=== PATIENT | female | born 1955 | race Caucasian/White ===

== ENCOUNTER → 2017-03-18 | Outpatient (CLI) | payer MEDICARE, OTHER ==
[2017-03-18 09:03] LABS: CH 30.7; CHCM 32.1; HDW 2.18; HGB 14.8 gm/dL (11.4-16.0); MCH 31.6 pg (25.0-35.0); MCHC 32.9 g/dL (31.0-37.0); MCV 96.1 fL (80.0-100.0); RBC 4.68 m/uL (3.80-5.40); RDW 12.8 % (11.5-15.5); WBC 7.4 k/uL (3.8-10.6)
[2017-03-18 09:14] LABS: ALT 31 U/L (9-52); AST 18 U/L (14-36); Alkaline Phosphatase 54 U/L (38-126); Anion Gap 15 mmol/L; Blood Urea Nitrogen 11 mg/dL (7-17); Carbon Dioxide 22 mmol/L (22-30); Chloride 102 mmol/L (98-107); Glucose 213 mg/dL (74-99); Magnesium 1.7 mg/dL (1.6-2.3); Non-African American GFR(MDRD) >60 (>60 ml/min/1.73 sqM); Potassium 4.5 mmol/L (3.5-5.1); Sodium 139 mmol/L (137-145); Total Bilirubin 0.3 mg/dL (0.2-1.3); Total Protein 7.9 g/dL (6.3-8.2)
[2017-03-18 12:16] LABS: Hemoglobin A1C 7.7 % (4.2-6.1)
== END | disposition home or self-care (01) ==
LOC: LABWHC1 08:22
PROVIDERS: ATTEND Family Medicine
DX: E11.9 Type 2 diabetes mellitus without complications (principal)
CPT/HCPCS: 36415; 80053; 83036; 83735; 84443; 85027

== ENCOUNTER 2018-10-19 12:24 | Inpatient (IN) | payer MEDICARE, OTHER ==
[2018-10-19] MEDS ORDERED: ACETAMINOPHEN TAB 500 MG TAB PO STA (12:43)
[2018-10-19] MEDS ORDERED: IBUPROFEN 600 MG TAB PO STA (12:44)
--- NOTE | 2018-10-19 12:52 | ED ---
Fall HPI <Garland Betts - Last Filed: 10/19/18 15:44> - General Source: patient, EMS Mode of arrival: EMS <JoepaulNick - Last Filed: 10/19/18 16:13> - General Chief Complaint: Fall Stated Complaint: fall/ rt arm injury Time Seen by Provider: 10/19/18 12:34 - History of Present Illness Initial Comments: Patient is a 62-year-old blind female presented to emergency department after a fall. Patient states that that today she was ambulating with an aide when she lost her footing and fell to the right side of her body. Patient denies loss of consciousness. Patient states that her pain is located along the midshaft of the right humerus and the shoulder. Patient states the pain does not radiate anywhere. Patient reports pain is constant and stabbing. Patient was brought to the emergency department with a sling which she states it helps with the pain. Patient did not take any medication to improve the pain. Patient reports she tingling on the palmar aspect of the of all digits. Patient denies any numbness. Patient reports the pain is worsened with arm abduction although she is able to fully extend the elbow. (Nick Mitchell) - Related Data Home Medications Medication Instructions Recorded Confirmed Aspirin [Adult Low Dose Aspirin EC] 81 mg PO DAILY 10/19/18 10/19/18 DULoxetine HCL [Cymbalta] 90 mg PO DAILY 10/19/18 10/19/18 Divalproex [Depakote] 500 mg PO BID 10/19/18 10/19/18 Levothyroxine Sodium [Synthroid] 25 mcg PO DAILY 10/19/18 10/19/18 Lisinopril-Hctz 10-12.5 mg 1 tab PO DAILY 10/19/18 10/19/18 [Zestoretic 10-12.5] Meloxicam [Mobic] 15 mg PO DAILY 10/19/18 10/19/18 Multivitamins, Thera [Multivitamin 1 tab PO DAILY 10/19/18 10/19/18 (formulary)] OLANZapine [ZyPREXA] 10 mg PO HS 10/19/18 10/19/18 Oxybutynin Xl [Ditropan Xl] 5 mg PO DAILY 10/19/18 10/19/18 Simvastatin [Zocor] 20 mg PO DAILY 10/19/18 10/19/18 glipiZIDE [Glucotrol XL] 10 mg PO BID 10/19/18 10/19/18 rOPINIRole HCL 0.5 mg PO HS 10/19/18 10/19/18 sitaGLIPtin PHOS/metFORMIN HCL 1 tab PO DAILY 10/19/18 10/19/18 [Janumet Xr 100-1,000 mg Tablet] Allergies Allergy/AdvReac Type Severity Reaction Status Date / Time No Known Allergies Allergy Verified 10/19/18 12:32 Review of Systems ROS Other: All systems not noted in ROS Statement are negative. <Garland eBtts - Last Filed: 10/19/18 15:44> ROS Other: All systems not noted in ROS Statement are negative. <Nick Mitchell - Last Filed: 10/19/18 16:13> ROS Statement: Those systems with pertinent positive or pertinent negative responses have been documented in the HPI. Past Medical History Past Medical History: Diabetes Mellitus, Hyperlipidemia, Hypertension, Thyroid Disorder Additional Past Medical History / Comment(s): blind, tremors History of Any Multi-Drug Resistant Organisms: None Reported Past Surgical History: No Surgical Hx Reported Past Psychological History: Anxiety Smoking Status: Never smoker Past Alcohol Use History: None Reported Past Drug Use History: None Reported <Nick Mitchell - Last Filed: 10/19/18 16:13> General Exam Limitations: no limitations (Blind) General appearance: alert, in no apparent distress Head exam: Present: atraumatic, normocephalic, normal inspection ENT exam: Present: normal exam Neck exam: Present: normal inspection, full ROM. Absent: tenderness Respiratory exam: Present: normal lung sounds bilaterally Cardiovascular Exam: Present: regular rate, normal rhythm, normal heart sounds Right Shoulder Exam: Present: tenderness (With abduction extension and flexion.). Absent: full ROM, swelling, abrasion, laceration, ecchymosis Upper Arm exam: Present: tenderness (Midshaft humerus.). Absent: swelling, abrasion, laceration, ecchymosis Elbow exam: Present: normal inspection, full ROM Forearm Wrist exam: Present: normal inspection, full ROM (Tingling or palmar aspect of all digits) Vascular: Present: normal capillary refill, radial pulse (+2), ulnar pulse (+2) Neurological exam: Present: alert, oriented X3 Psychiatric exam: Present: normal affect, normal mood Skin exam: Present: warm, normal color <Nick Mitchell - Last Filed: 10/19/18 16:13> Course Vital Signs 10/19/18 10/19/18 10/19/18 12:27 14:30 14:44 Temperature 97.5 F L Pulse Rate 93 98 89 Respiratory 18 18 18 Rate Blood Pressure 137/81 137/67 121/90 O2 Sat by Pulse 96 98 95 Oximetry 10/19/18 10/19/18 10/19/18 14:49 14:54 14:59 Temperature Pulse Rate 131 H 118 H 103 H Respiratory 35 H 37 H 32 H Rate Blood Pressure 114/74 114/99 O2 Sat by Pulse 98 97 97 Oximetry 10/19/18 10/19/18 10/19/18 15:04 15:09 15:14 Temperature Pulse Rate 83 99 98 Respiratory 24 26 H 28 H Rate Blood Pressure 102/53 107/54 115/51 O2 Sat by Pulse 98 98 98 Oximetry 10/19/18 10/19/18 10/19/18 15:19 15:24 15:30 Temperature Pulse Rate 94 96 90 Respiratory 20 20 18 Rate Blood Pressure 111/63 110/59 107/56 O2 Sat by Pulse 97 97 97 Oximetry Procedures - Orthopedic Joint Reduction Joint #1 Consent Obtained: verbal consent Side: right Joint Reduction Location: shoulder Shoulder Technique Used (if applicable): traction/counter-traction - Procedural Sedation Procedural Sedation Start Time: 14:45 Procedural Sedation Stop Time: 15:50 Indications: fracture/dislocation reduction Preparation: hall monitor applied, pulse oximeter, capnometry used, supplemental O2 applied, suction/airway equipment at bedside IV Etomidate Dose (mgs): 40 Patient Tolerated Procedure: well <Garland Betts - Last Filed: 10/19/18 15:44> - Orthopedic Joint Reduction Joint #1 Additional Comments: Unable to reduce the shoulder. (Garland Betts) Medical Decision Making - Lab Data Result diagrams: 10/19/18 14:18 10/19/18 14:18 <Graland Betts - Last Filed: 10/19/18 15:44> - Lab Data Result diagrams: 10/19/18 14:18 10/19/18 14:18 <Nick Mitchell - Last Filed: 10/19/18 16:13> - Medical Decision Making EKG showed normal sinus rhythm at 90 bpm TN interval 168 QRSs 84 QT interval 366 QTC is 452. Patient's T-wave inversions in leads V2 through V6. Compared to an old EKG from 2007 and some of these had previously existed. We used etomidate for conscious sedation with the patient we initially gave the patient 15 mg and she was not completely relax a gave her 5 more we followed that up with 2 more doses of 10. Shoulder was not able to be reduced in the emergency department. (Garland Betts) Patient is 62-year-old male presenting to emergency Department after fall. X- ray right shoulder and humerus were ordered. Patient was given ibuprofen for control. X-ray showing a dislocation of the right shoulder and a fracture of the greater trochanter of the humerus. Possible biceps tear and injury to the rotator cuff. Patient was given ibuprofen for pain with minimal improvement. Patient was given [place] afterward. Patient will be admitted directly to the OR with Dr. Moise. (Nick Mitchell) - Lab Data Lab Results 10/19/18 10/19/18 10/19/18 Range/Units 14:18 14:18 14:18 WBC 17.8 H (3.8-10.6) k/uL RBC 4.55 (3.80-5.40) m/uL Hgb 13.4 (11.4-16.0) gm/dL Hct 41.5 (34.0-46.0) % MCV 91.2 (80.0-100.0) fL MCH 29.5 (25.0-35.0) pg MCHC 32.3 (31.0-37.0) g/dL RDW 13.4 (11.5-15.5) % Plt Count 340 (150-450) k/uL Neutrophils % 90 % Lymphocytes % 6 % Monocytes % 3 % Eosinophils % 0 % Basophils % 0 % Neutrophils # 16.0 H (1.3-7.7) k/uL Lymphocytes # 1.1 (1.0-4.8) k/uL Monocytes # 0.5 (0-1.0) k/uL Eosinophils # 0.1 (0-0.7) k/uL Basophils # 0.0 (0-0.2) k/uL Sodium 135 L (137-145) mmol/L Potassium 4.9 (3.5-5.1) mmol/L Chloride 99 (98-107) mmol/L Carbon Dioxide 23 (22-30) mmol/L Anion Gap 13 mmol/L BUN 13 (7-17) mg/dL Creatinine 0.56 (0.52-1.04) mg/dL Est GFR (CKD-EPI)AfAm >90 (>60 ml/min/1.73 sqM) Est GFR (CKD-EPI)NonAf >90 (>60 ml/min/1.73 sqM) Glucose 254 H (74-99) mg/dL Calcium 9.8 (8.4-10.2) mg/dL Total Bilirubin 0.3 (0.2-1.3) mg/dL AST 22 (14-36) U/L ALT 13 (9-52) U/L Alkaline Phosphatase 58 (38-126) U/L Troponin I <0.012 (0.000-0.034) ng/mL Total Protein 7.4 (6.3-8.2) g/dL Albumin 4.2 (3.5-5.0) g/dL Disposition <Garland Betts - Last Filed: 10/19/18 15:44> Is patient prescribed a controlled substance at d/c from ED?: No Time of Disposition: 16:13 <Nick Mitchell - Last Filed: 10/19/18 16:13> Clinical Impression: Fall, Dislocation, shoulder, anterior, Fracture, humerus closed Disposition: ADMITTED IP TO THIS HOSP Condition: Stable Additional Instructions: Admitting physician is Dr. Moise. Referrals: Georgi Parker MD [Primary Care Provider] - 1-2 days
--- NOTE | 2018-10-19 13:18 | XR ---
EXAMINATION TYPE: XR humerus RT, XR shoulder complete RT DATE OF EXAM: 10/19/2018 CLINICAL HISTORY: Right shoulder and upper chimney pain after fall TECHNIQUE: Two views of the right humerus are obtained. 3 views of the right shoulder were obtained COMPARISON: None. FINDINGS: There is an anterior shoulder dislocation and diabetic minimally comminuted fracture of the greater tuberosity with diastases measuring 1.2 cm. Concern for biceps tendon and rotator cuff injur y given the location of the fracture. Mild acromio clavicular arthropathy is noted. Elbow joint is un remarkable. No additional fracture in the right humerus and right shoulder. Flowing anterior osteophy sridhar are seen of the thoracic spine. Inferior glenoid is obscured and bony Bankart lesion is possible but not well visualized. IMPRESSION: Anterior right humeral head dislocation with minimally comminuted diastatic right greater tuberosity fracture. The location of the fracture raises concern for biceps tendon and rotator cuff injury.
[2018-10-19] MEDS ORDERED: HYDROcodone/APAP 5-325MG 1 EACH TAB PO STA (13:48)
[2018-10-19] MEDS ORDERED: ETOMIDATE 2 MG/ML 10 ML VIAL IVP STA ×2 (14:05→14:50)
[2018-10-19 14:36] LABS: ALT 13 U/L (9-52); AST 22 U/L (14-36); Albumin 4.2 g/dL (3.5-5.0); Alkaline Phosphatase 58 U/L (38-126); Anion Gap 13 mmol/L; Blood Urea Nitrogen 13 mg/dL (7-17); Calcium 9.8 mg/dL (8.4-10.2); Carbon Dioxide 23 mmol/L (22-30); Chloride 99 mmol/L (98-107); Glucose 254 mg/dL (74-99); Potassium 4.9 mmol/L (3.5-5.1); Sodium 135 mmol/L (137-145); Total Bilirubin 0.3 mg/dL (0.2-1.3); Total Protein 7.4 g/dL (6.3-8.2)
[2018-10-19 14:39] LABS: Basophils % (A) 0 %; Eosinophils # (A) 0.1 k/uL (0-0.7); Eosinophils % (A) 0 %; HCT 41.5 % (34.0-46.0); HGB 13.4 gm/dL (11.4-16.0); Lymphocytes # (A) 1.1 k/uL (1.0-4.8); Lymphocytes % (A) 6 %; MCH 29.5 pg (25.0-35.0); MCHC 32.3 g/dL (31.0-37.0); MCV 91.2 fL (80.0-100.0); Mean Platelet Volume 6.9; Monocytes # (A) 0.5 k/uL (0-1.0); Monocytes % (A) 3 %; Neutrophils % (A) 90 %; Platelet Count 340 k/uL (150-450); RBC 4.55 m/uL (3.80-5.40); RDW 13.4 % (11.5-15.5); WBC 17.8 k/uL (3.8-10.6)
[2018-10-19] MEDS ORDERED: MORPHINE SULFATE 4 MG/ML SYRINGE IV PRN (16:06)
[2018-10-19] MEDS ORDERED: NALOXONE 0.4 MG/ML 1 ML VIAL IV PRN (16:06)
[2018-10-19 17:22] LABS: Glucose,Whole Blood 231 mg/dL (75-99)
[2018-10-19] MEDS ORDERED: SODIUM CHLORIDE 0.9% 1,000 ML IV ONE (17:45)
--- NOTE | 2018-10-19 18:18 | P.HPOR ---
History of Present Illness H&P Date: 10/19/18 Chief Complaint: Right shoulder dislocation Patient is a 60-year-old female who presented to [facility] today after sustaining a fall and injury to her right side. Patient was walking with her aid, she lost her balance and fell directly on the right side. She had immediate pain and had difficulty moving the right arm. Upon arrival to [facility], imaging test demonstrated a anterior dislocation right shoulder with a greater tuberosity fracture. I was contacted by the emergency room staff. An attempt was made at a closed reduction with sedation in the ER, this was not achievable. Patient was then directly admitted to the hospital, with plan for surgical intervention. Patient was admitted to orthopedic service for further treatment. Patient was evaluated in the preoperative area today. She is resting comfortably. She has no other orthopedic complaints at this time. She notes some discomfort in shoulder. She denies any significant numbness and tingling involving the right upper extremity. Patient is legally blind, she does have an aide that comes in 2 hours out of the day. She does live alone. She denies any previous orthopedic surgeon involving the right upper extremity. Review of Systems Constitutional: Reports as per HPI Past Medical History Past Medical History: Diabetes Mellitus, Hyperlipidemia, Hypertension, Thyroid Disorder Additional Past Medical History / Comment(s): blind, tremors History of Any Multi-Drug Resistant Organisms: None Reported Past Surgical History: No Surgical Hx Reported Past Anesthesia/Blood Transfusion Reactions: No Reported Reaction Past Psychological History: Anxiety Smoking Status: Never smoker Past Alcohol Use History: None Reported Past Drug Use History: None Reported - Past Family History Brother(s) Additional Family Medical History / Comment(s): 2 brothres , 1 in [place] Medications and Allergies Home Medications Medication Instructions Recorded Confirmed Type Aspirin [Adult Low Dose Aspirin EC] 81 mg PO DAILY 10/19/18 10/19/18 History DULoxetine HCL [Cymbalta] 90 mg PO DAILY 10/19/18 10/19/18 History Divalproex [Depakote] 500 mg PO BID 10/19/18 10/19/18 History Levothyroxine Sodium [Synthroid] 25 mcg PO DAILY 10/19/18 10/19/18 History Lisinopril-Hctz 10-12.5 mg 1 tab PO DAILY 10/19/18 10/19/18 History [Zestoretic 10-12.5] Meloxicam [Mobic] 15 mg PO DAILY 10/19/18 10/19/18 History Multivitamins, Thera [Multivitamin 1 tab PO DAILY 10/19/18 10/19/18 History (formulary)] OLANZapine [ZyPREXA] 10 mg PO HS 10/19/18 10/19/18 History Oxybutynin Xl [Ditropan Xl] 5 mg PO DAILY 10/19/18 10/19/18 History Simvastatin [Zocor] 20 mg PO DAILY 10/19/18 10/19/18 History glipiZIDE [Glucotrol XL] 10 mg PO BID 10/19/18 10/19/18 History rOPINIRole HCL 0.5 mg PO HS 10/19/18 10/19/18 History sitaGLIPtin PHOS/metFORMIN HCL 1 tab PO DAILY 10/19/18 10/19/18 History [Janumet Xr 100-1,000 mg Tablet] Allergies Allergy/AdvReac Type Severity Reaction Status Date / Time No Known Allergies Allergy Verified 10/19/18 12:32 Physical Examination Right upper extremity: No obvious open lesions or sores visualized, no significant areas of erythema or soft tissue swelling Sensation to light touch throughout the extremity is intact, skin is warm to touch, radial pulses 2+ Patient is nontender with palpation surrounding the wrist and hand, also elbow There is some tenderness to palpation over the anterior aspect of the shoulder Results - Labs Labs: Abnormal Lab Results - Last 24 Hours (Table) 10/19/18 10/19/18 10/19/18 Range/Units 14:18 14:18 17:10 WBC 17.8 H (3.8-10.6) k/uL Neutrophils # 16.0 H (1.3-7.7) k/uL Sodium 135 L (137-145) mmol/L Glucose 254 H (74-99) mg/dL POC Glucose (mg/dL) 231 H (75-99) mg/dL H & H 10/19/18 Range/Units 14:18 Hgb 13.4 (11.4-16.0) gm/dL Hct 41.5 (34.0-46.0) % Result Diagrams: 10/19/18 14:18 10/19/18 14:18 - Diagnostic results Shoulder x-ray: report reviewed, image reviewed Assessment and Plan Plan: Imaging: Multiple images of the humerus and shoulder were obtained on the right side. Images demonstrated an obvious anterior shoulder dislocation with a displaced g reater tuberosity fracture. Assessment: 1. Right shoulder anterior dislocation 2. Displaced greater tuberosity fracture right shoulder 3. Status post fall from standing 4. Other medical comorbidities Plan: Dr. Moise was available today to discuss treatment options with patient in the preop area. Patient was scheduled for an immediate reduction of the right shoulder. Consent has been obtained for a closed reduction of the right shoulder with possible open reduction right shoulder. Nothing by mouth at this time Pain control Medical consult Further recommendations to follow Time with Patient: Less than 30
[2018-10-19] MEDS ORDERED: SUCCINYLCHOLINE CHLORIDE 100 MG/5 ML SYR IV ONE (18:26)
[2018-10-19] MEDS ORDERED: PROPOFOL 10 MG/ML 20 ML VIAL IV ONE (18:26)
[2018-10-19] MEDS ORDERED: LIDOCAINE 1% INJ 10MG/ML (20 ML MDV) ONE (18:26)
[2018-10-19] MEDS ORDERED: PHENYLEPHRINE-0.9% NACL SYG 1 MG/10 ML SYRINGE ONE (18:26)
[2018-10-19] MEDS ORDERED: MIDAZOLAM 2 MG/2 ML VIAL ONE (18:26)
[2018-10-19] MEDS ORDERED: fentaNYL (PF) 50 MCG/ML 2 ML AMP ONE (18:26)
[2018-10-19] MEDS ORDERED: SODIUM CHLORIDE 0.9% 100 ML with ceFAZolin 2,000 MG IV ONE ×2 (18:59)
[2018-10-19] MEDS ORDERED: HYDROmorphone 1 MG/ML 1 ML SYRINGE IVP PRN (20:14)
[2018-10-19] MEDS ORDERED: HYDROmorphone 0.5 MG/0.5 ML SYRINGE IVP PRN (20:14)
--- NOTE | 2018-10-19 20:30 | P.OP ---
Date of Procedure: 10/19/18 Preoperative Diagnosis: Right shoulder dislocation/greater tuberosity fracture Postoperative Diagnosis: Subcoracoid anterior shoulder dislocation/displacedcomminuted greater tuberosity fracture Procedure(s) Performed: Open reduction of the right shoulder dislocation with open reduction and internal fixation of the greater tuberosity fracture Anesthesia: THIEN Surgeon: Bud Moise Hemodialysis Technician #1: Joaquin Dupont Estimated Blood Loss (ml): 50 Pathology: none sent Condition: stable Disposition: PACU Indications for Procedure: The patient's a 62-year-old blind female who presents after falling today injuring her right shoulder. Upon evaluation she was noted have a dislocated glenohumeral joint with fracture of the greater tuberosity. She underwent initial attempted reduction by the ER physicians without success. A discussion of the risks and benefits of operative intervention was made with patient. I informed her we would attempt repeat closed reduction but proceed with open reduction along with internal fixation if needed. Specific risks of the surgery to include infection, neurovascular injury, development of nonunion, possible recurrent instability, possible need for subsequent procedures was discussed. Informed consent was obtained. Operative Findings: As below Description of Procedure: The patient was brought to the operating room, and after induction of general anesthesia, I attempted closed reduction of her shoulder dislocation. This was unsuccessful. She is placed in a beachchair position. Bony prominences were appropriately padded. The right upper extremity was prepped and draped in normal fashion. A deltopectoral incision was then made just lateral to the coracoid process extending approximately 12 cm. Skin and subcutaneous tissues were divided sharply. Electrocautery was used for hemostasis. The subcutaneous tissues were divided bluntly. The deltopectoral interval was identified. The cephalic vein was gently retracted laterally with the were bluntly dissected. A self-retaining retractor was placed under the conjoined tendon medially and the deltoid laterally. The dislocation appeared to be subcoracoid. The biceps was blocking reduction and therefore was released from the superior labrum and allowed to retract distally. The shoulder was then reduced. The greater tuberosity was fragmented. This was reduced and fixed utilizing #2 fiber tape through distal drill holes. Final fluoroscopic view showed adequate reduction of the glenohumeral joint along with the fragmented greater tuberosity. The wound was irrigated normal saline. The deltopectoral was closed with interrupted 2-0 Vicryl sutures. The subcutaneous tissues reapproximated interrupted 2-0 Vicryl sutures. The skin was reapproximated with 3-0 subcuticular Prolene suture. Steri-Strips were applied. A sterile dressing was applied in addition to a sling. The patient was then awoken from general anesthesia and transferred to recovery room in good condition. Blood loss estimated 50 mL. No complications were incurred. Sponge and needle counts were correct at the end the case.
[2018-10-19] MEDS: HYDROmorphone 1 MG/ML 1 ML SYRINGE IVP ONE ×2 (20:55→21:00)
[2018-10-19] MEDS ORDERED: HEPARIN SODIUM,PORCINE 5,000 UNIT/ML 1 ML VIAL SQ SCH (21:00)
[2018-10-19] MEDS ORDERED: LACTATED RINGERS 1,000 ML IV ONE ×2 (21:03)
[2018-10-19] MEDS: SODIUM CHLORIDE 0.45% 1,000 ML IV SCH (21:19)
--- NOTE | 2018-10-19 21:45 | FL ---
EXAMINATION TYPE: FL guidance operating room, XR shoulder limited RT DATE OF EXAM: 10/19/2018 CLINICAL HISTORY: Right shoulder fracture. TECHNIQUE: Fluoroscopy. Limited intraoperative views right shoulder. COMPARISON: Right shoulder x-ray earlier today.. FINDINGS: Fluoroscopic guidance was provided during open reduction internal fixation procedure perfo rmed by Dr. Arriaga. A total of 53 seconds of fluoroscopic time was utilized during the procedure and single spot intraoperative image is acquired. Single spot intraoperative image acquired shows reduction of comminuted fracture with improved alignm ent. IMPRESSION: As Above.
[2018-10-19] MEDS: glipiZIDE 10 MG TAB PO SCH (21:51)
[2018-10-19] MEDS: DIVALPROEX 500 MG TABLET.DR PO SCH (21:51)
[2018-10-19] MEDS: INSULIN ASPART (NovoLOG) 100 UNIT/ML VIAL SQ SCH (21:51)
[2018-10-19] MEDS: OLANZapine 10 MG TAB PO SCH (21:51)
[2018-10-19] MEDS: LACTATED RINGERS 1,000 ML IV SCH (21:52)
[2018-10-19 22:03] LABS: Glucose,Whole Blood 178 mg/dL (75-99)
[2018-10-19 22:10] LABS: Glucose,Whole Blood 174 mg/dL (75-99)
[2018-10-20] MEDS: ceFAZolin IN SWFI 2 GM/20 ML SYRINGE IVP SCH ×2 (02:54→11:26)
[2018-10-20] MEDS: LEVOTHYROXINE 25 MCG TAB PO SCH (05:48)
[2018-10-20 06:05] LABS: Appearance,Urine Clear (Clear); Bacteria,Urine Rare /hpf; Bilirubin,Urine Negative (Negative); Blood,Urine Negative (Negative); Color,Urine Yellow; Glucose,Urine (UA) 2+ (Negative); Ketones,Urine 1+ (Negative); Leukocyte Esterase,Urine Trace (Negative); Mucus,Urine Occasional /hpf; Nitrite,Urine Negative (Negative); PH, Urine 5.5 (5.0-8.0); Protein,Urine Trace (Negative); RBC,Urine 1 /hpf (0-5); Specific Gravity,Urine 1.032 (1.001-1.035); Squamous Epithelial Cell,Urine 1 /hpf (0-4); Urobilinogen,Urine <2.0 mg/dL (<2.0); WBC,Urine 9 /hpf (0-5)
[2018-10-20] MEDS: HYDROcodone/APAP 5-325MG 1 EACH TAB PO PRN ×3 (06:16→21:04)
[2018-10-20 07:20] LABS: Glucose,Whole Blood 183 mg/dL (75-99)
[2018-10-20 07:29] LABS: Basophils % (A) 0 %; Eosinophils # (A) 0.1 k/uL (0-0.7); Eosinophils % (A) 1 %; HCT 38.4 % (34.0-46.0); HGB 12.1 gm/dL (11.4-16.0); Lymphocytes % (A) 21 %; MCH 28.9 pg (25.0-35.0); MCHC 31.6 g/dL (31.0-37.0); MCV 91.4 fL (80.0-100.0); Mean Platelet Volume 7.3; Monocytes # (A) 0.6 k/uL (0-1.0); Monocytes % (A) 7 %; Neutrophils # (A) 6.5 k/uL (1.3-7.7); Neutrophils % (A) 70 %; Platelet Count 214 k/uL (150-450); RDW 13.4 % (11.5-15.5); WBC 9.4 k/uL (3.8-10.6)
[2018-10-20] MEDS: glipiZIDE 10 MG TAB PO SCH ×2 (07:44→16:58)
[2018-10-20] MEDS: DULoxetine HCL 30 MG CAPSULE.DR PO SCH (07:44)
[2018-10-20] MEDS: DIVALPROEX 500 MG TABLET.DR PO SCH ×2 (07:44→21:05)
[2018-10-20] MEDS: metFORMIN 500 MG TAB PO SCH (07:44)
[2018-10-20] MEDS: OXYBUTYNIN XL 5 MG TAB.ER.24 PO SCH (07:45)
[2018-10-20] MEDS: INSULIN ASPART (NovoLOG) 100 UNIT/ML VIAL SQ SCH ×4 (07:45→21:05)
[2018-10-20] MEDS: LISINOPRIL-HCTZ 10-12.5 MG 1 EACH TAB PO SCH (07:45)
[2018-10-20] MEDS: MULTIVITAMINS, THERA 1 EACH TAB PO SCH (07:45)
[2018-10-20] MEDS: ATORVASTATIN 10 MG TAB PO SCH (07:45)
[2018-10-20] MEDS: LINAGLIPTIN 5 MG TABLET PO SCH (07:45)
[2018-10-20] MEDS: HEPARIN SODIUM,PORCINE 5,000 UNIT/ML 1 ML VIAL SQ SCH ×2 (07:46→21:05)
--- NOTE | 2018-10-20 08:11 | P.PN ---
Subjective Progress Note Date: 10/20/18 Principal diagnosis: Status post open reduction right shoulder/open reduction internal fixation greater tuberosity fracture patient is evaluated at bedside today, she is resting comfortably. She's utilizing the arm sling. Her pain is well-controlled. She denies any numbness or tingling involving the upper extremity. She denies any chest shortness of breath Objective - Vital Signs Vital signs: Vital Signs Temp 97.7 F 10/20/18 07:41 Pulse 78 10/20/18 07:41 Resp 16 10/20/18 07:41 BP 118/72 10/20/18 07:41 Pulse Ox 97 10/20/18 07:41 Intake & Output 10/19/18 10/20/18 10/20/18 18:59 06:59 18:59 Intake Total 550 1050 Output Total 900 Balance 550 150 Weight 85.729 kg Intake: IV 550 200 Intake, IV Titration 750 Amount Lactated Ringers 1,000 ml 750 @ 75 mls/hr IV .[id number] NAM Rx#:[id number] Oral 100 Output: Urine 850 Straight 850 Estimated Blood Loss 50 - Exam Right upper extremity: Postoperative bandages in good position and condition. Ecchymosis and soft tissue swelling present over the shoulder. Wrist extension and flexion are intact, she is able to wiggle all the fingers no difficulty. Her sensory exam to light touch throughout the extremities intact. Her radial pulses 2+. - Labs CBC & Chem 7: 10/20/18 06:50 10/19/18 14:18 Labs: Abnormal Lab Results - Last 24 Hours (Table) 10/19/18 10/19/18 10/19/18 Range/Units 14:18 14:18 17:10 WBC 17.8 H (3.8-10.6) k/uL Neutrophils # 16.0 H (1.3-7.7) k/uL Sodium 135 L (137-145) mmol/L Glucose 254 H (74-99) mg/dL POC Glucose (mg/dL) 231 H (75-99) mg/dL Urine Protein (Negative) Urine Glucose (UA) (Negative) Urine Ketones (Negative) Ur Leukocyte Esterase (Negative) Urine WBC (0-5) /hpf Urine Bacteria (None) /hpf Urine Mucus (None) /hpf 10/19/18 10/19/18 10/20/18 Range/Units 21:25 21:45 05:45 WBC (3.8-10.6) k/uL Neutrophils # (1.3-7.7) k/uL Sodium (137-145) mmol/L Glucose (74-99) mg/dL POC Glucose (mg/dL) 178 H 174 H (75-99) mg/dL Urine Protein Trace H (Negative) Urine Glucose (UA) 2+ H (Negative) Urine Ketones 1+ H (Negative) Ur Leukocyte Esterase Trace H (Negative) Urine WBC 9 H (0-5) /hpf Urine Bacteria Rare H (None) /hpf Urine Mucus Occasional H (None) /hpf 10/20/18 Range/Units 07:09 WBC (3.8-10.6) k/uL Neutrophils # (1.3-7.7) k/uL Sodium (137-145) mmol/L Glucose (74-99) mg/dL POC Glucose (mg/dL) 183 H (75-99) mg/dL Urine Protein (Negative) Urine Glucose (UA) (Negative) Urine Ketones (Negative) Ur Leukocyte Esterase (Negative) Urine WBC (0-5) /hpf Urine Bacteria (None) /hpf Urine Mucus (None) /hpf Assessment and Plan Plan: Assessment: 1. Postop day #1 status post open reduction right shoulder/open reduction internal fixation right shoulder greater tuberosity fracture Plan: Pain control, continue oral medication Continue use of arm sling GI and DVT prophylaxis, continue current medication Medical recommendations With patient's immobilization the right upper extremity, taking the consideration she is legally blind and that she has an aid visit for 2 hours a day, this patient will need subacute rehab for assistance with activities of daily living. Time with Patient: Less than 30
[2018-10-20] MEDS: LACTATED RINGERS 1,000 ML IV SCH (11:42)
[2018-10-20 11:59] LABS: Glucose,Whole Blood 228 mg/dL (75-99)
[2018-10-20] MEDS: SODIUM CHLORIDE 0.45% 1,000 ML IV SCH (16:16)
[2018-10-20 16:45] LABS: Glucose,Whole Blood 231 mg/dL (75-99)
[2018-10-20 20:56] LABS: Glucose,Whole Blood 244 mg/dL (75-99)
[2018-10-20] MEDS: OLANZapine 10 MG TAB PO SCH (21:05)
--- NOTE | 2018-10-20 22:22 | PN ---
PROGRESS NOTE DATE OF SERVICE: October 20, 2018. PRESENTING COMPLAINT: Right shoulder surgery. INTERVAL HISTORY: This is a patient with a fall with a fracture of the right humerus greater tuberosity fracture and dislocation, which was underwent surgical repair. Right arm in a sling. Some pain is present. Sitting up. No chest pain or short of breath. REVIEW OF SYSTEMS: Done for constitutional, cardiovascular, GI, pulmonary, musculoskeletal and relevant findings as above. CURRENT MEDICATIONS: Reviewed. PHYSICAL EXAMINATION: VITAL SIGNS: Temperature 98.1, pulse 95, respirations 14, blood pressure 116/72, pulse ox 96% on room air. GENERAL APPEARANCE: Sitting up on a chair awake. EYES: Pupils are equal. Conjunctivae normal. NECK: JVD unable to assess. Mass not palpable. RESPIRATORY: Effort normal. LUNGS: Fair air entry. CARDIOVASCULAR: 1st and 2nd sounds normal. No edema. ABDOMEN: Soft, nontender. Liver and spleen not palpable. PSYCHIATRY: AO x3. Mood and affect normal. Right arm in a sling and dressing over the right shoulder. INVESTIGATIONS: White count 9.4, hemoglobin 12.1, platelets 214. Accu-Cheks are noted. ASSESSMENT: 1. Right shoulder greater tuberosity fracture and dislocation followed by surgical intervention right arm in a sling. 2. Obesity; BMI 30.5. 3. Diabetes mellitus type 2. 4. Essential hypertension. 5. Hyperlipidemia. 6. Hypothyroidism. 7. Chronic blindness. The patient can only visualize light. 8. Chronic essential tremors. PLAN: 1. Continue current medication and treatment plan. 2. Care was discussed with the patient. 3. Accu-Cheks are noted. MMODL / IJN: [id number] /
--- NOTE | 2018-10-20 23:04 | CONS ---
CONSULTATION DATE OF CONSULTATION: October 20, 2018. REASON FOR CONSULTATION: Medical management requested by Dr. Moise. CONSULTATION: This is a pleasant 62 -year-old patient of visiting physician Dr. Parker normally gets around with a walker, slipped and fell injuring the right shoulder with a fracture to the greater tuberosity. The patient underwent surgical repair of the same. Chronic stable medical conditions include diabetes, hypertension, hyperlipidemia, hypothyroid. The patient is blind in both the eyes and has got chronic tremors. No cardiac history. REVIEW OF SYSTEMS: CONSTITUTIONAL: None. HEENT poor eyesight. RESPIRATORY none. GASTROINTESTINAL: None. GENITOURINARY: None. MUSCULOSKELETAL: Arthritic pain in the joints. DERMATOLOGICAL, HEMATOLOGIC, LYMPHATIC: none. PSYCHIATRY none, NEUROLOGICAL: Blind. Also has got tremors. PAST MEDICAL HISTORY: Diabetes mellitus type 2, hyperlipidemia, hypertension, hypothyroid, blind and tremors. PAST SURGICAL HISTORY: None. SOCIAL HISTORY: No smoking. No alcohol. FAMILY HISTORY: Reviewed. Noncontributory to presentation. HOME MEDICATIONS: 1. Ropinirole 0.5 mg at bedtime. 2. Zyprexa 10 mg q.h.s. 3. Mobic 50 mg p.o. daily. 4. Zocor 20 mg p.o. daily. 5. Multivitamin 1 tablet p.o. daily. 6. Janumet XR 100/1000 1 tablet p.o. daily. 7. Zestoretic 03/18.5 one tab p.o. daily. 8. Synthroid 25 mcg a day. 9. Glucotrol XL 10 mg b.i.d. 10.Ditropan XL 5 mg daily. 11.Depakote 500 mg b.i.d. 12.Cymbalta 90 mg p.o. daily. 13.Aspirin 81 mg p.o. daily. ALLERGIES: None. PHYSICAL EXAMINATION: VITAL SIGNS: Temperature 98.1. Pulse 95, respiration 14, blood pressure 116/72, pulse ox 96% on room air. GENERAL APPEARANCE: Average built, BMI 30.5, sitting up, awake. EYES: Pupils equal. Conjunctivae normal. HEENT: External appearance of nose and ears normal. Oral cavity normal. NECK: JVD not raised. Mass not palpable. RESPIRATORY: Effort normal. LUNGS: Fair air entry. CARDIOVASCULAR: First and second sounds normal. No edema. ABDOMEN: Soft, nontender. Liver and spleen not palpable. LYMPHATICS: No lymph nodes palpable in the neck. PSYCHIATRY: Alert, able to answer questions. NEUROLOGICAL: The patient has got poor eyesight. Only can see light. No facial asymmetry. Moving all 4 limbs. MUSCULOSKELETAL: Right arm in a sling. Dressing over the right shoulder. Able to move her fingers. INVESTIGATIONS: White count 9.4, hemoglobin 12.1. Accu-Cheks are noted. EKG tracing personally reviewed by me shows nonspecific T-wave changes, possibly a strained pattern. ASSESSMENT: 1. Right shoulder greater tuberosity fracture secondary to fall followed by repair also had dislocation now with open reduction and right arm in a sling. 2. Obesity; BMI 30.5. 3. Diabetes mellitus type 2 on oral hypoglycemics. 4. Hyperlipidemia. 5. Essential hypertension. 6. Hypothyroidism. 7. 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 8. Chronic tremors. PLAN: Continue current medication and treatment plan. Accu-Cheks will be followed. Home medications are resumed. Care was discussed with the patient. Thank you Dr. Moise. MMADEOLA / FREDI: [id number] /
[2018-10-21] MEDS: LACTATED RINGERS 1,000 ML IV SCH ×2 (04:41→13:25)
[2018-10-21] MEDS: HYDROcodone/APAP 5-325MG 1 EACH TAB PO PRN ×3 (05:44→20:51)
[2018-10-21] MEDS: LEVOTHYROXINE 25 MCG TAB PO SCH (05:44)
[2018-10-21 07:14] LABS: Glucose,Whole Blood 189 mg/dL (75-99)
[2018-10-21] MEDS: INSULIN ASPART (NovoLOG) 100 UNIT/ML VIAL SQ SCH ×4 (07:25→20:52)
[2018-10-21] MEDS: HEPARIN SODIUM,PORCINE 5,000 UNIT/ML 1 ML VIAL SQ SCH ×2 (07:25→20:51)
[2018-10-21] MEDS: metFORMIN 500 MG TAB PO SCH (07:26)
[2018-10-21] MEDS: ATORVASTATIN 10 MG TAB PO SCH (07:26)
[2018-10-21] MEDS: DULoxetine HCL 30 MG CAPSULE.DR PO SCH (07:26)
[2018-10-21] MEDS: LISINOPRIL-HCTZ 10-12.5 MG 1 EACH TAB PO SCH (07:26)
[2018-10-21] MEDS: OXYBUTYNIN XL 5 MG TAB.ER.24 PO SCH (07:26)
[2018-10-21] MEDS: glipiZIDE 10 MG TAB PO SCH ×2 (07:26→17:56)
[2018-10-21] MEDS: LINAGLIPTIN 5 MG TABLET PO SCH (07:26)
[2018-10-21] MEDS: DIVALPROEX 500 MG TABLET.DR PO SCH ×2 (07:26→20:51)
[2018-10-21] MEDS: MULTIVITAMINS, THERA 1 EACH TAB PO SCH (07:27)
--- NOTE | 2018-10-21 10:52 | P.PN ---
Subjective Progress Note Date: 10/21/18 Principal diagnosis: Status post open reduction right shoulder/open reduction internal fixation greater tuberosity fracture patient is evaluated at bedside today, she is resting comfortably. She's utilizing the arm sling. Her pain is well-controlled. She denies any numbness or tingling involving the upper extremity. She denies any chest shortness of breath Objective - Vital Signs Vital signs: Vital Signs Temp 97.6 F 10/21/18 08:36 Pulse 86 10/21/18 08:36 Resp 16 10/21/18 08:36 BP 109/66 10/21/18 08:36 Pulse Ox 95 10/21/18 08:36 Intake & Output 10/20/18 10/21/18 10/21/18 18:59 06:59 18:59 Intake Total 928 250 Balance 928 250 Intake: Oral 928 250 Other: # Voids 2 1 1 - Exam Right upper extremity: Postoperative bandages in good position and condition. Ecchymosis and soft tissue swelling present over the shoulder. Wrist extension and flexion are intact, she is able to wiggle all the fingers no difficulty. Her sensory exam to light touch throughout the extremities intact. Her radial pulses 2+. - Labs CBC & Chem 7: 10/20/18 06:50 10/19/18 14:18 Labs: Abnormal Lab Results - Last 24 Hours (Table) 10/20/18 10/20/18 10/20/18 Range/Units 11:48 16:34 20:50 POC Glucose (mg/dL) 228 H 231 H 244 H (75-99) mg/dL 10/21/18 Range/Units 07:12 POC Glucose (mg/dL) 189 H (75-99) mg/dL Assessment and Plan Plan: Assessment: 1. Postop day #2 status post open reduction right shoulder/open reduction internal fixation right shoulder greater tuberosity fracture Plan: Pain control, continue oral medication Continue use of arm sling GI and DVT prophylaxis, continue current medication Medical recommendations Plan for discharge to rehab Time with Patient: Less than 30
[2018-10-21 12:18] LABS: Glucose,Whole Blood 225 mg/dL (75-99)
[2018-10-21 17:01] LABS: Glucose,Whole Blood 188 mg/dL (75-99)
[2018-10-21] MEDS: SODIUM CHLORIDE 0.45% 1,000 ML IV SCH (17:19)
[2018-10-21 20:44] LABS: Glucose,Whole Blood 237 mg/dL (75-99)
[2018-10-21] MEDS: OLANZapine 10 MG TAB PO SCH (20:53)
--- NOTE | 2018-10-21 22:05 | PN ---
PROGRESS NOTE DATE OF SERVICE: October 21, 2018 PRESENT COMPLAINT: Right shoulder injury. INTERVAL HISTORY: Patient is status post fall with right shoulder injury followed by surgical repair. Sitting up. Pain is controlled. Tolerating a diet. REVIEW OF SYSTEMS: Done for constitutional, cardiovascular, GI, pulmonary and relevant findings as above. CURRENT MEDICATIONS: Reviewed. EXAMINATION: VITAL SIGNS: Afebrile. Pulse 86. Respiratory rate 16. Blood pressure 109/66, pulse ox 95% on room air. GENERAL APPEARANCE: Sitting up, awake. EYES: Conjunctivae normal. NECK: JVD not raised. Mass not palpable. RESPIRATORY: Effort normal. LUNGS: Fair. CARDIOVASCULAR: 1st and 2nd sounds normal. No edema. ABDOMEN: Soft, nontender. Liver and spleen not palpable. NEUROLOGICAL: Poor eyesight can only perceive light. INVESTIGATIONS: Accu-Cheks are noted. ASSESSMENT: 1. Right shoulder greater tuberosity fracture secondary to fall followed by surgical repair. The patient also had a dislocation. 2. Obesity; BMI 30.5. 3. Diabetes mellitus type 2 on oral hypoglycemic. 4. Hyperlipidemia. 5. Essential hypertension. 6. Hypothyroidism. 7. 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 8. Essential tremors. PLAN: Continue current medication and treatment plan. Disposition as per Ortho and social services coordinator. MMODL / IJN: [id number] /
[2018-10-22] MEDS: LEVOTHYROXINE 25 MCG TAB PO SCH (06:26)
[2018-10-22 07:34] LABS: Glucose,Whole Blood 131 mg/dL (75-99)
[2018-10-22] MEDS: LACTATED RINGERS 1,000 ML IV SCH (07:43)
[2018-10-22] MEDS: INSULIN ASPART (NovoLOG) 100 UNIT/ML VIAL SQ SCH ×2 (07:43→13:14)
[2018-10-22 07:50] VITALS: BP 124/72; PULSE 84; RESP 16; TEMP 98.3
[2018-10-22] MEDS: glipiZIDE 10 MG TAB PO SCH (08:14)
[2018-10-22] MEDS: DULoxetine HCL 30 MG CAPSULE.DR PO SCH (08:15)
[2018-10-22] MEDS: MULTIVITAMINS, THERA 1 EACH TAB PO SCH (08:15)
[2018-10-22] MEDS: DIVALPROEX 500 MG TABLET.DR PO SCH (08:15)
[2018-10-22] MEDS: LISINOPRIL-HCTZ 10-12.5 MG 1 EACH TAB PO SCH (08:15)
[2018-10-22] MEDS: HEPARIN SODIUM,PORCINE 5,000 UNIT/ML 1 ML VIAL SQ SCH (08:15)
[2018-10-22] MEDS: OXYBUTYNIN XL 5 MG TAB.ER.24 PO SCH (08:15)
[2018-10-22] MEDS: ATORVASTATIN 10 MG TAB PO SCH (08:15)
[2018-10-22] MEDS: metFORMIN 500 MG TAB PO SCH (08:15)
[2018-10-22] MEDS: LINAGLIPTIN 5 MG TABLET PO SCH (08:15)
[2018-10-22] MEDS: HYDROcodone/APAP 5-325MG 1 EACH TAB PO PRN (10:08)
--- NOTE | 2018-10-22 11:13 | P.PN ---
Subjective Progress Note Date: 10/22/18 Principal diagnosis: Status post open reduction right shoulder/open reduction internal fixation greater tuberosity fracture patient is evaluated at bedside today, she is resting comfortably. She's utilizing the arm sling. Her pain is well-controlled. She denies any numbness or tingling involving the upper extremity. She denies any chest shortness of breath Objective - Vital Signs Vital signs: Vital Signs Temp 98.3 F 10/22/18 07:06 Pulse 84 10/22/18 07:06 Resp 16 10/22/18 07:06 BP 124/72 10/22/18 07:06 Pulse Ox 97 10/22/18 07:06 Intake & Output 10/21/18 10/22/18 10/22/18 18:59 06:59 18:59 Intake Total 100 470 Balance 100 470 Intake: Oral 100 470 Other: Voiding Method Diaper Incontinent # Voids 3 2 - Exam Right upper extremity: Postoperative bandages in good position and condition. Ecchymosis and soft tissue swelling present over the shoulder. Wrist extension and flexion are intact, she is able to wiggle all the fingers no difficulty. Her sensory exam to light touch throughout the extremities intact. Her radial pulses 2+. - Labs CBC & Chem 7: 10/20/18 06:50 10/19/18 14:18 Labs: Abnormal Lab Results - Last 24 Hours (Table) 10/21/18 10/21/18 10/21/18 Range/Units 11:56 16:50 20:33 POC Glucose (mg/dL) 225 H 188 H 237 H (75-99) mg/dL 10/22/18 Range/Units 07:07 POC Glucose (mg/dL) 131 H (75-99) mg/dL Assessment and Plan Plan: Assessment: 1. Postop day #3 status post open reduction right shoulder/open reduction internal fixation right shoulder greater tuberosity fracture Plan: Pain control, continue oral medication Continue use of arm sling GI and DVT prophylaxis, continue current medication Medical recommendations Plan for discharge to rehab today Time with Patient: Less than 30
--- NOTE | 2018-10-22 11:20 | P.DS ---
Providers Date of admission: 10/19/18 16:12 Expected date of discharge: 10/22/18 Attending physician: Bud Moise Consults: 10/19/18 18:30 Consult Physician Routine Consulting Provider: Georgi Parker Consult Reason/Comments: Medical Management Do you want consulting provider notified?: Yes 10/19/18 18:42 Consult Physician Routine Consulting Provider: Samuel Garcia Consult Reason/Comments: medical mangement Do you want consulting provider notified?: Yes Primary care physician: Georgi Parker [facility] Course: Date of admission: 10/19/2018 Date of discharge: 10/22/2018 Admission diagnosis: Right shoulder dislocation/right greater tuberosity fracture Discharge diagnosis: Status post open reduction right shoulder/ORIF right greater tuberosity fracture Attending physician: Dr. Moise Surgical procedures: Open reduction right shoulder/open reduction internal fixation right greater tuberosity fracture Brief history: Patient is a 62-year-old female who presented to [facility] on 10/19/2018 after sustaining a fall while walking. The fall resulted in a anterior dislocated right shoulder with right greater tuberosity fracture. A reduction attempt was made by the ER staff, this was unachievable. Patient was a directly admitted to [facility] and scheduled for a closed reduction right shoulder with possible open reduction and open reduction internal fixation of the greater tuberosity fracture. Hospital course: Details of patient's surgery can be found in operative report. Patient tolerated the procedure well and was subsequently transported to orthopedic floor. Patient's orthopeidc and medical care was provided daily. Patient had daily laboratory tests performed for evaluation of overall blood counts. Patient had daily physical therapy to include strengthening range of motion as well as education with walker ambulation. Patient was treated with heparin for their postoperative DVT prophylaxis during their inpatient stay. Patient was noted to have a relatively uneventful postoperative course. Patient reported satisfactory pain control with oral pain medications by postoperative day 0. Patient showed satisfactory progress with physical therapy. Patient moved steadily through the program and had no difficulty meeting the goals by postoperative day 3. Given patient's otherwise satisfactory course and having met physical therapy goals, plan is to discharge patient rehab on postoperative day 3. Discharge condition/disposition: Patient will be discharged to rehab in stable condition. Discharge medications: Instructions are given on resumption of patient's normal daily medications per primary care recommendation, in addition patient will be prescribed . Discharge instructions: 1. Wound care and infection precautions, keep incision dry and covered while showering, no lotions, creams, moisturizers. No soaking, tubs, pools, hottubs. Do not scrub over the incision. 2. Utilize arm sling 3. Ice and elevate when necessary. Do not exceed 20 minutes per hour with ice pack. 4. Utilize compression sleeve until seen at first follow up appointment. 5. Pain meds and anticoagulants per prescription. 6. Pain medication has potential to cause constipation. Increase oral fluid and fiber intake. Contact primary care provider if you have not had a bowel movement within 48 hours after discharge. 7. Follow up in office at 2 weeks postop with Elio Dupont PA-C 8. Follow up with your primary care doctor 7-10 days after discharge. 9. Contact [facility] with any questions, . Procedures: Open reduction right shoulder dislocation/open reduction internal fixation right shoulder greater tuberosity fracture Patient Condition at Discharge: Stable Plan - Discharge Summary Discharge Rx Participant: No New Discharge Prescriptions: New Hydrocodone/Acetaminophen [[place] 5-325] 1 - 2 each PO Q6HR PRN #56 tab PRN Reason: Pain No Action Meloxicam [Mobic] 15 mg PO DAILY Simvastatin [Zocor] 20 mg PO DAILY OLANZapine [ZyPREXA] 10 mg PO HS rOPINIRole HCL 0.5 mg PO HS Multivitamins, Thera [Multivitamin (formulary)] 1 tab PO DAILY sitaGLIPtin PHOS/metFORMIN HCL [Janumet Xr 100-1,000 mg Tablet] 1 tab PO DAILY Lisinopril-Hctz 10-12.5 mg [Zestoretic 10-12.5] 1 tab PO DAILY Levothyroxine Sodium [Synthroid] 25 mcg PO DAILY glipiZIDE [Glucotrol XL] 10 mg PO BID Oxybutynin Xl [Ditropan Xl] 5 mg PO DAILY Divalproex [Depakote] 500 mg PO BID DULoxetine HCL [Cymbalta] 90 mg PO DAILY Aspirin [Adult Low Dose Aspirin EC] 81 mg PO DAILY Discharge Medication List Aspirin [Adult Low Dose Aspirin EC] 81 mg PO DAILY 10/19/18 [History] DULoxetine HCL [Cymbalta] 90 mg PO DAILY 10/19/18 [History] Divalproex [Depakote] 500 mg PO BID 10/19/18 [History] Levothyroxine Sodium [Synthroid] 25 mcg PO DAILY 10/19/18 [History] Lisinopril-Hctz 10-12.5 mg [Zestoretic 10-12.5] 1 tab PO DAILY 10/19/18 [History] Meloxicam [Mobic] 15 mg PO DAILY 10/19/18 [History] Multivitamins, Thera [Multivitamin (formulary)] 1 tab PO DAILY 10/19/18 [History] OLANZapine [ZyPREXA] 10 mg PO HS 10/19/18 [History] Oxybutynin Xl [Ditropan Xl] 5 mg PO DAILY 10/19/18 [History] Simvastatin [Zocor] 20 mg PO DAILY 10/19/18 [History] glipiZIDE [Glucotrol XL] 10 mg PO BID 10/19/18 [History] rOPINIRole HCL 0.5 mg PO HS 10/19/18 [History] sitaGLIPtin PHOS/metFORMIN HCL [Janumet Xr 100-1,000 mg Tablet] 1 tab PO DAILY 10/19/18 [History] Hydrocodone/Acetaminophen [[place] 5-325] 1 - 2 each PO Q6HR PRN #56 tab 10/22/18 [Rx] Follow up Appointment(s)/Referral(s): Kevin Caldwell, [NON-STAFF] - 1 Week Georgi Parker MD [Primary Care Provider] - 1-2 days Joaquin Dupont PAC [PHYSICIAN HYPOID GEAR GENERATOR] - 2 Weeks Activity/Diet/Wound Care/Special Instructions: Admitting physician is Dr. Moise. Orthopedic discharge instructions: 1. Utilize arm sling at all times 2. Ice the right shoulder and arm often 3. Keep incision dry and covered while showering 4. [facility]-up at [facility] in 2 weeks for x-ray evaluation Discharge Disposition: TRANSFER TO SNF/ECF
[2018-10-22 12:08] LABS: Glucose,Whole Blood 242 mg/dL (75-99)
--- NOTE | 2018-10-22 15:53 | PN ---
PROGRESS NOTE DATE OF SERVICE: October 22, 2018. PRESENTING COMPLAINT: Right shoulder surgery. INTERVAL HISTORY: Patient is status post right shoulder injury followed by surgical repair. Some pain is present. Otherwise, tolerating a diet. Comfortable. Sitting up. No other new issues. REVIEW OF SYSTEMS: Done for constitutional, cardiovascular, GI, pulmonary, musculoskeletal and relevant findings as above. CURRENT MEDICATIONS: Reviewed. PHYSICAL EXAMINATION: VITAL SIGNS: Temperature 98.3, pulse 84, respiratory rate 16, blood pressure 124/72, pulse ox 97% on room air. GENERAL APPEARANCE: Sitting up, awake. NECK: JVD not raised. Mass not palpable. RESPIRATORY: Effort normal. LUNGS fair. CARDIOVASCULAR: First and second sounds normal. No edema. ABDOMEN: Soft, nontender. Liver and spleen not palpable. NEUROLOGICAL: Poor eyesight can only perceive light. EXTREMITIES: Right arm in a sling. INVESTIGATIONS: Accu-Cheks are noted. ASSESSMENT: 1. Right shoulder greater tuberosity fracture secondary to fall followed by surgical repair and dislocation was also repaired. 2. Obesity; BMI 30.5. 3. Diabetes mellitus type 2 on oral hypoglycemic. 4. Hyperlipidemia. 5. Essential hypertension. 6. Hypothyroidism. 7. Chronic blindness, can only perceive light. 8. Essential tremors. PLAN: Stable. The patient is probably going to go back to the [facility]. MMODL / IJN: [id number] /
== END 2018-10-22 13:48 | DRG 494 ==
LOC: EC 12:24 → 4SSUR 16:12
PROVIDERS: ADMIT Orthopaedic Surgery; ATTEND Orthopaedic Surgery
PROC: 0PSC04Z Reposition Right Humeral Head with Internal Fixation Device, Open Approach (ICD-10-PCS; 2018-10-19)
PROC: 0RSJ0ZZ Reposition Right Shoulder Joint, Open Approach (ICD-10-PCS; 2018-10-19)
PROC: 0PSCXZZ Reposition Right Humeral Head, External Approach (ICD-10-PCS; principal; 2018-10-19 17:21)
DX: S42.251A Displaced fracture of greater tuberosity of right humerus, initial encounter for closed fracture (principal); S43.014A Anterior dislocation of right humerus, initial encounter; E03.9 Hypothyroidism, unspecified; E11.9 Type 2 diabetes mellitus without complications; E78.5 Hyperlipidemia, unspecified; I10 Essential (primary) hypertension; H54.8 Legal blindness, as defined in USA; F41.9 Anxiety disorder, unspecified; G25.0 Essential tremor; E66.9 Obesity, unspecified; Z68.30 Body mass index [BMI] 30.0-30.9, adult; Z79.82 Long term (current) use of aspirin; Z79.84 Long term (current) use of oral hypoglycemic drugs; Z79.1 Long term (current) use of non-steroidal anti-inflammatories (NSAID); Z79.890 Hormone replacement therapy; Z79.899 Other long term (current) drug therapy; W01.0XXA Fall on same level from slipping, tripping and stumbling without subsequent striking against object, initial encounter; Y93.01 Activity, walking, marching and hiking
CPT/HCPCS: 23650; 36415; 80053; 81001; 84484; 85025; 93005; 99152; 99153; 99285

== ENCOUNTER → 2022-04-16 | Outpatient (CLI) | payer MEDICARE, OTHER ==
--- NOTE | 2022-04-16 11:16 | FL ---
EXAMINATION TYPE: FL barium swallow DATE OF EXAM: 04/16/2022 10:46 AM COMPARISON: None. CLINICAL INDICATION:Female, 66 years old with history of R13.10 DYSPHAGIA; PHH, TECHNIQUE: The procedure was explained and patient history elicited. All patient questions were ans wered prior to start of procedure. Multiple spot fluoroscopic images of the esophagus were obtained a fter the oral ingestion of liquid barium as the contrast agent. Fluoroscopic time: 8 seconds Fluoroscopic images: 101 FINDINGS: Limited examination due to patient positioning with the patient only able to lay in the supine positi on. Patient not able to be upright for examination. The esophagus demonstrates normal primary and secondary peristalsis. There is some tertiary contracti ons demonstrated. The esophageal mucosa is smooth without evidence of focal stricture, ulceration, or abnormal outpouching. Gastroesophageal reflux was identified. IMPRESSION: Limited examination due to patient positioning. Mild esophageal dysmotility. Gastroesophageal reflux identified.
== END | disposition home or self-care (01) ==
LOC: RADUSWWP 09:46
PROVIDERS: ATTEND Otolaryngology
DX: K22.4 Dyskinesia of esophagus (principal); K21.9 Gastro-esophageal reflux disease without esophagitis
CPT/HCPCS: 74220

== ENCOUNTER → 2023-09-23 | Outpatient (CLI) | payer MEDICARE, OTHER ==
--- NOTE | 2023-09-23 12:00 | FL ---
Exam Date: 09/23/2023 11:51 AM. Modified barium swallow for dysphagia. Consistencies administered: Various consistency of barium. Fluoro time: 1 MIN 50 SEC No images were sent to PACS. Please see speech pathology report. DAP: not reported mGym2 Gycm2
== END | disposition home or self-care (01) ==
LOC: RADFLMAIN 10:57
PROVIDERS: ATTEND Family Medicine
DX: R13.10 Dysphagia, unspecified (principal); F31.61 Bipolar disorder, current episode mixed, mild; F06.4 Anxiety disorder due to known physiological condition; E11.9 Type 2 diabetes mellitus without complications; I10 Essential (primary) hypertension
CPT/HCPCS: 74230

== ENCOUNTER 2024-12-03 09:44 | Inpatient (IN) | payer MEDICARE, OTHER ==
--- NOTE | 2024-12-03 10:08 | ED ---
General Adult HPI - General Chief complaint: Altered Mental Status Stated complaint: AMS Time Seen by Provider: 12/03/24 09:55 Source: EMS Mode of arrival: EMS - History of Present Illness Initial comments: Dictation was produced using [employer] dictation software. please excuse any gr ammatical, word or spelling errors. Chief Complaint: 69-year-old female with 48 hours of altered mental status History of Present Illness: Patient is a 69-year-old DNR patient [facility] Patient was allegedly altered since yesterday. This morning she was more altered. Patient usually alert oriented x 3. This morning she was found to be alert and oriented x 1. Found to be lethargic. According to transfer documentation patient was having some stomach pain. The ROS documented in this emergency department record has been reviewed and confirmed by me. Those systems with pertinent positive or negative responses have been documented in the HPI. All other systems are other negative and/or noncontributory. - Related Data Home Medications Medication Instructions Recorded Confirmed Aspirin [Adult Low Dose Aspirin EC] 81 mg PO DAILY 10/19/18 10/19/18 DULoxetine HCL [Cymbalta] 90 mg PO DAILY 10/19/18 10/19/18 Divalproex [Depakote] 500 mg PO BID 10/19/18 10/19/18 Levothyroxine Sodium [Synthroid] 25 mcg PO DAILY 10/19/18 10/19/18 Lisinopril-Hctz 10-12.5 mg 1 tab PO DAILY 10/19/18 10/19/18 [Zestoretic 10-12.5] Meloxicam [Mobic] 15 mg PO DAILY 10/19/18 10/19/18 Multivitamins, Thera [Multivitamin 1 tab PO DAILY 10/19/18 10/19/18 (formulary)] OLANZapine [ZyPREXA] 10 mg PO HS 10/19/18 10/19/18 Oxybutynin Xl [Ditropan Xl] 5 mg PO DAILY 10/19/18 10/19/18 Simvastatin [Zocor] 20 mg PO DAILY 10/19/18 10/19/18 glipiZIDE [Glucotrol XL] 10 mg PO BID 10/19/18 10/19/18 rOPINIRole HCL [Requip] 0.5 mg PO HS 10/19/18 10/19/18 sitaGLIPtin PHOS/metFORMIN HCL 1 tab PO DAILY 10/19/18 10/19/18 [Janumet Xr 100-1,000 mg Tablet] Previous Rx's Medication Instructions Recorded Hydrocodone/Acetaminophen [[place] 1 - 2 each PO Q6HR PRN #56 tab 10/22/18 5-325] Allergies Allergy/AdvReac Type Severity Reaction Status Date / Time sulfamethoxazole Allergy Unknown Verified 12/03/24 11:22 [From Bactrim] trimethoprim [From Bactrim] Allergy Unknown Verified 12/03/24 11:22 Review of Systems ROS Statement: Those systems with pertinent positive or pertinent negative responses have been documented in the HPI. ROS Other: All systems not noted in ROS Statement are negative. 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, ESBL Date of last positivie culture/infection: 10/06/20 ESBL E.coli MDRO Source:: URINE Past Surgical History: No Surgical Hx Reported Past Anesthesia/Blood Transfusion Reactions: No Reported Reaction Past Psychological History: Anxiety Past Alcohol Use History: None Reported Past Drug Use History: None Reported - Past Family History Brother(s) Additional Family Medical History / Comment(s): 2 brothres , 1 in [place] General Exam - General Exam Comments Initial Comments: PHYSICAL EXAM: General Impression: Alert and oriented x1, lethargic, pale HEENT: Normocephalic atraumatic, extra-ocular movements intact, pupils equal and reactive to light bilaterally, dry mucous membranes with dried residual blood in the mouth Cardiovascular: Heart regular rate and rhythm Chest: Able to complete full sentences, no retractions, no tachypnea Abdomen: abdomen soft, non-tender, non-distended, no organomegaly Musculoskeletal: Pulses present and equal in all extremities, no peripheral edema Motor: no focal deficits noted Neurological: CN II-XII grossly intact, no focal motor or sensory deficits noted Skin: Intact with no visualized rashes Rectal exam: No gross blood Course Vital Signs 12/03/24 12/03/24 12/03/24 09:46 10:15 10:45 Temperature 97 F L Pulse Rate 77 75 70 Respiratory 22 20 18 Rate Blood Pressure 77/63 81/45 88/38 O2 Sat by Pulse 92 L 97 98 Oximetry 12/03/24 12/03/24 12/03/24 11:24 11:57 12:00 Temperature Pulse Rate 71 72 74 Respiratory 18 18 20 Rate Blood Pressure 79/41 79/44 85/48 O2 Sat by Pulse 97 95 97 Oximetry 12/03/24 12/03/24 12:15 12:46 Temperature Pulse Rate 72 73 Respiratory 18 20 Rate Blood Pressure 91/42 82/41 O2 Sat by Pulse 97 98 Oximetry - Reevaluation(s) Reevaluation #1: 12/03/24 11:51 Case discussed with patient's brother states that patient would like medical treatment however still remains DNR EKG Findings - EKG Comments: EKG Findings:: My EKG interpretation: Ventricular rate 76, sinus rhythm, parable 183, cures 80, QTc 399. No MO prolongation, no QTC prolongation, no ST or T-wave changes noted. Overall, this EKG is unremarkable Procedures - Sepsis Sepsis Focused Exam #1 Time Sepsis Criteria Met: 11: Sepsis Focused Exam Date: 12/03/24 Sepsis Focused Exam Time: 11:04 Sepsis Focused Exam Complete: Yes Vital Signs & RN Notes Reviewed: Yes Capillary Refill: < 2 Seconds: Fingers, Toes Peripheral Pulses: Weak: Radial (R), Radial (L), Posterior Tibialis (R), Posterior Tibialis (L), Dorsalis Pedis (R), Dorsalis Pedis (L) Skin Color: Ashen Respiratory Exam: normal lung sounds Cardiovascular Exam: regular rate Medical Decision Making - Medical Decision Making Was pt. sent in by a medical professional or institution (Dr. PA, CURB ATTENDANT, urgent care, hospital, or [facility]...) When possible be specific @ -No Did you speak to anyone other than the patient for history (EMS, parent, family, police, friend...)? What history was obtained from this source @ -See above Did you review nursing and triage notes (agree or disagree)? Why? @ -I reviewed and agree with nursing and triage notes Were old charts reviewed (outside hosp., previous admission, EMS record, old EKG, old radiological studies, urgent care reports/EKG's, [facility] records)? Report findings @ -No old charts were reviewed Differential Diagnosis (chest pain, altered mental status, abdominal pain women, abdominal pain men, vaginal bleeding, musculoskeletal, weakness, fever, dyspnea, syncope, headache, dizziness, GI bleed, back pain, seizure, CVA, palpatations, mental health)? @ -Differential Weakness: Hypoglycemia, shock, sepsis, hyponatremia, anemia, infection, WA, ETOH, adverse medicine reaction, overdose, stroke, this is not meant to be an all-inclusive list. EKG interpreted by me (3pts min.). @ -See above X-rays interpreted by me (1pt min.). @ -Chest x-ray shows no acute processes CT interpreted by me (1pt min.). @ -CT ab pelvis shows large stool burden U/S interpreted by me (1pt. min.). @ -None done What testing was considered but not performed or refused? (CT, X-rays, U/S, labs)? Why? @ -None What meds were considered but not given or refused? Why? @ -None Was smoking cessation discussed for >3mins.? @ -No Were there social determinants of health that impacted care today? How? (Homelessness, low income, unemployed, alcoholism, drug addiction, joseph sportation, low edu. Level, literacy, decrease access to med. care, senior living, rehab)? @ -No Was there de-escalation of care discussed even if they declined (Discuss DNR or withdrawal of care, Hospice)? DNR status @ -Patient is DNR What co-morbidities impacted this encounter? (DM, HTN, Smoking, COPD, CAD, Cancer, CVA, ARF, Chemo, Hep., AIDS, mental health diagnosis, sleep apnea, morbid obesity)? @ -Bipolar disease, debility Was patient admitted / discharged? Hospital course, mention meds given and route, prescriptions, significant lab abnormalities, going to OR and other pertinent info. @ -69-year-old female with urosepsis. P patient hypotensive upon arrival given 30 cc/kg bolus based on ideal body weight. Blood pressure improved. Laboratory evaluation obtained showing leukocytosis of 42. Lactic acid of 6.0. Urinalysis shows UTI. Concern for UTI sepsis. Patient started broad-spectrum antibiotics. Case discussed with superintendent storage area will be admitted to the ICU. Case discussed with hospitalist for admission Did you discuss the management of the patient with other professionals (pro fessionals i.e. , PA, CURB ATTENDANT, lab, RT, psych nurse, social media specialist, lawyer probate, teacher, mechanical engineering officer, continuous pillowcase cutter)? Give summary @ -See above Was critical care preformed (if so, how long)? @ -Yes, 77 minutes Undiagnosed new problem with uncertain prognosis? @ -No Drug Therapy requiring intensive monitoring for toxicity (Heparin, Nitro, Insulin, Cardizem)? @ -No Were any procedures done? @ -No Diagnosis/symptom? Acute, or Chronic, or Acute on Chronic? Uncomplicated (without systemic symptoms) or Complicated (systemic symptoms)? @ -UTI sepsis Side effects of treatment? @ -No Exacerbation, Progression, or Severe Exacerbation? @ -No Poses a threat to life or bodily function? How? (Chest pain, USA, WA, pneumonia, PE, COPD, DKA, ARF, appy, cholecystitis, CVA, Diverticulitis, Homicidal, S uicidal, threat to staff... and all critical care pts) @ -yes - Lab Data Result diagrams: 12/03/24 10:25 12/03/24 10:25 Lab Results 12/03/24 12/03/24 12/03/24 Range/Units 10:18 10:25 10:25 WBC 42.63 H (4.50-10.00) 10*3/uL RBC 5.07 (4.10-5.20) 10*6/uL Hgb 15.3 H (12.0-15.0) g/dL Hct 47.0 H (37.2-46.3) % MCV 92.7 (80.0-97.0) fL MCH 30.2 (27.0-32.0) pg MCHC 32.6 (32.0-37.0) g/dL Plt Count 339 (140-440) 10*3/uL MPV 9.2 L (9.5-12.2) fL Immature Gran % (Auto) 1.9 % Neutrophils % Not Reportable Neutrophils % (Manual) 81 % Band Neuts % (Manual) 6 % Lymphocytes % Not Reportable Lymphocytes % (Manual) 9 % Monocytes % Not Reportable Monocytes % (Manual) 4 % Eosinophils % Not Reportable Basophils % Not Reportable Immature Gran # 0.81 H (0.00-0.04) 10*3/uL Neutrophils # Not Reportable Neutrophils # (Manual) 37.08 H (1.3-7.7) k/uL Lymphocytes # Not Reportable Lymphocytes # (Manual) 3.84 (1.0-4.8) k/uL Monocytes # Not Reportable Monocytes # (Manual) 1.71 H (0-1.0) k/uL Eosinophils # Not Reportable Basophils # Not Reportable Nucleated RBCs 0 (0-0) /100 WBC Manual Slide Review Performed RBC Morphology Normal PT 11.4 (10.0-12.5) sec INR 1.0 (<1.2) APTT 23.4 (22.0-30.0) sec Sodium (137-145) mmol/L Potassium (3.5-5.1) mmol/L Chloride (98-107) mmol/L Carbon Dioxide (22-30) mmol/L Anion Gap mmol/L BUN (7-17) mg/dL Creatinine (0.52-1.04) mg/dL Est GFR (CKD-EPI)AfAm (>60 ml/min/1.73 sqM) Est GFR (CKD-EPI)NonAf (>60 ml/min/1.73 sqM) Glucose (74-99) mg/dL POC Glucose (mg/dL) 257 H (70-110) mg/dL POC Glu Hot Car Operator ID Taras Arredondo Lactic Ac Sepsis Rflx Plasma Lactic Acid Madhu (0.7-2.0) mmol/L Calcium (8.4-10.2) mg/dL Magnesium (1.6-2.3) mg/dL Total Bilirubin (0.2-1.3) mg/dL AST (14-36) U/L ALT (4-34) U/L Alkaline Phosphatase (38-126) U/L Troponin I (0.000-0.034) ng/mL Total Protein (6.3-8.2) g/dL Albumin (3.5-5.0) g/dL Urine Color Urine Appearance (Clear) Urine pH (5.0-8.0) Ur Specific [place] (1.001-1.035) Urine Protein (Negative) Urine Glucose (UA) (Negative) Urine Ketones (Negative) Urine Blood (Negative) Urine Nitrite (Negative) Urine Bilirubin (Negative) Urine Urobilinogen (<2.0) mg/dL Ur Leukocyte Esterase (Negative) Urine RBC (0-5) /hpf Urine WBC (0-5) /hpf Urine WBC Clumps (None) /hpf Ur Squamous Epith Cells (0-4) /hpf Urine Yeast (Budding) (None) /hpf Serum Alcohol mg/dL 12/03/24 12/03/24 12/03/24 Range/Units 10:25 10:25 10:25 WBC (4.50-10.00) 10*3/uL RBC (4.10-5.20) 10*6/uL Hgb (12.0-15.0) g/dL Hct (37.2-46.3) % MCV (80.0-97.0) fL MCH (27.0-32.0) pg MCHC (32.0-37.0) g/dL Plt Count (140-440) 10*3/uL MPV (9.5-12.2) fL Immature Gran % (Auto) % Neutrophils % Neutrophils % (Manual) % Band Neuts % (Manual) % Lymphocytes % Lymphocytes % (Manual) % Monocytes % Monocytes % (Manual) % Eosinophils % Basophils % Immature Gran # (0.00-0.04) 10*3/uL Neutrophils # Neutrophils # (Manual) (1.3-7.7) k/uL Lymphocytes # Lymphocytes # (Manual) (1.0-4.8) k/uL Monocytes # Monocytes # (Manual) (0-1.0) k/uL Eosinophils # Basophils # Nucleated RBCs (0-0) /100 WBC Manual Slide Review RBC Morphology PT (10.0-12.5) sec INR (<1.2) APTT (22.0-30.0) sec Sodium 139 (137-145) mmol/L Potassium 4.7 (3.5-5.1) mmol/L Chloride 102 (98-107) mmol/L Carbon Dioxide 16 L (22-30) mmol/L Anion Gap 21 mmol/L BUN 42 H (7-17) mg/dL Creatinine 1.60 H (0.52-1.04) mg/dL Est GFR (CKD-EPI)AfAm 38 (>60 ml/min/1.73 sqM) Est GFR (CKD-EPI)NonAf 33 (>60 ml/min/1.73 sqM) Glucose 282 H (74-99) mg/dL POC Glucose (mg/dL) (70-110) mg/dL POC Glu Hot Car Operator ID Lactic Ac Sepsis Rflx Plasma Lactic Acid Madhu 6.0 H* (0.7-2.0) mmol/L Calcium 9.5 (8.4-10.2) mg/dL Magnesium 3.2 H (1.6-2.3) mg/dL Total Bilirubin 0.8 (0.2-1.3) mg/dL AST 48 H (14-36) U/L ALT 44 H (4-34) U/L Alkaline Phosphatase 413 H (38-126) U/L Troponin I 0.017 (0.000-0.034) ng/mL Total Protein 6.7 (6.3-8.2) g/dL Albumin 3.5 (3.5-5.0) g/dL Urine Color Urine Appearance (Clear) Urine pH (5.0-8.0) Ur Specific [place] (1.001-1.035) Urine Protein (Negative) Urine Glucose (UA) (Negative) Urine Ketones (Negative) Urine Blood (Negative) Urine Nitrite (Negative) Urine Bilirubin (Negative) Urine Urobilinogen (<2.0) mg/dL Ur Leukocyte Esterase (Negative) Urine RBC (0-5) /hpf Urine WBC (0-5) /hpf Urine WBC Clumps (None) /hpf Ur Squamous Epith Cells (0-4) /hpf Urine Yeast (Budding) (None) /hpf Serum Alcohol <10 mg/dL 12/03/24 12/03/24 Range/Units 10:57 11:39 WBC (4.50-10.00) 10*3/uL RBC (4.10-5.20) 10*6/uL Hgb (12.0-15.0) g/dL Hct (37.2-46.3) % MCV (80.0-97.0) fL MCH (27.0-32.0) pg MCHC (32.0-37.0) g/dL Plt Count (140-440) 10*3/uL MPV (9.5-12.2) fL Immature Gran % (Auto) % Neutrophils % Neutrophils % (Manual) % Band Neuts % (Manual) % Lymphocytes % Lymphocytes % (Manual) % Monocytes % Monocytes % (Manual) % Eosinophils % Basophils % Immature Gran # (0.00-0.04) 10*3/uL Neutrophils # Neutrophils # (Manual) (1.3-7.7) k/uL Lymphocytes # Lymphocytes # (Manual) (1.0-4.8) k/uL Monocytes # Monocytes # (Manual) (0-1.0) k/uL Eosinophils # Basophils # Nucleated RBCs (0-0) /100 WBC Manual Slide Review RBC Morphology PT (10.0-12.5) sec INR (<1.2) APTT (22.0-30.0) sec Sodium (137-145) mmol/L Potassium (3.5-5.1) mmol/L Chloride (98-107) mmol/L Carbon Dioxide (22-30) mmol/L Anion Gap mmol/L BUN (7-17) mg/dL Creatinine (0.52-1.04) mg/dL Est GFR (CKD-EPI)AfAm (>60 ml/min/1.73 sqM) Est GFR (CKD-EPI)NonAf (>60 ml/min/1.73 sqM) Glucose (74-99) mg/dL POC Glucose (mg/dL) (70-110) mg/dL POC Glu Hot Car Operator ID Lactic Ac Sepsis Rflx Y Plasma Lactic Acid Madhu (0.7-2.0) mmol/L Calcium (8.4-10.2) mg/dL Magnesium (1.6-2.3) mg/dL Total Bilirubin (0.2-1.3) mg/dL AST (14-36) U/L ALT (4-34) U/L Alkaline Phosphatase (38-126) U/L Troponin I (0.000-0.034) ng/mL Total Protein (6.3-8.2) g/dL Albumin (3.5-5.0) g/dL Urine Color Red Urine Appearance Turbid H (Clear) Urine pH 5.5 (5.0-8.0) Ur Specific [place] 1.017 (1.001-1.035) Urine Protein 2+ H (Negative) Urine Glucose (UA) 4+ H (Negative) Urine Ketones Negative (Negative) Urine Blood Large H (Negative) Urine Nitrite Negative (Negative) Urine Bilirubin Negative (Negative) Urine Urobilinogen <2.0 (<2.0) mg/dL Ur Leukocyte Esterase Large H (Negative) Urine RBC >182 H (0-5) /hpf Urine WBC >182 H (0-5) /hpf Urine WBC Clumps Many H (None) /hpf Ur Squamous Epith Cells 24 H (0-4) /hpf Urine Yeast (Budding) Many H (None) /hpf Serum Alcohol mg/dL Disposition Clinical Impression: Sepsis secondary to UTI Disposition: ADMITTED IP TO THIS HOSP Condition: Critical Referrals: Jonathan Fulton DO [Primary Care Provider] - 1-2 days Decision Time: 13:08
[2024-12-03 10:20] LABS: Glucose,Whole Blood 257 mg/dL (70-110)
[2024-12-03] MEDS: SODIUM CHLORIDE 0.9% 2,000 ML IV STA (10:20)
[2024-12-03] MEDS: PANTOPRAZOLE 40 MG/10 ML VIAL IVP STA (10:26)
[2024-12-03 10:47] LABS: INR 1.0 (<1.2); Partial Thromboplastin Time 23.4 sec (22.0-30.0); Prothrombin Time 11.4 sec (10.0-12.5)
[2024-12-03 10:49] LABS: ALT 44 U/L (4-34); AST 48 U/L (14-36); African American GFR (CKD) 38 (>60 ml/min/1.73 sqM); Albumin 3.5 g/dL (3.5-5.0); Alkaline Phosphatase 413 U/L (38-126); Anion Gap 21 mmol/L; Blood Urea Nitrogen 42 mg/dL (7-17); Calcium 9.5 mg/dL (8.4-10.2); Carbon Dioxide 16 mmol/L (22-30); Chloride 102 mmol/L (98-107); Glucose 282 mg/dL (74-99); Magnesium 3.2 mg/dL (1.6-2.3); Non-African American GFR(CKD) 33 (>60 ml/min/1.73 sqM); Potassium 4.7 mmol/L (3.5-5.1); Sodium 139 mmol/L (137-145); Total Protein 6.7 g/dL (6.3-8.2)
[2024-12-03 10:54] LABS: HCT 47.0 % (37.2-46.3); HGB 15.3 g/dL (12.0-15.0); MCH 30.2 pg (27.0-32.0); MCHC 32.6 g/dL (32.0-37.0); MCV 92.7 fL (80.0-97.0); Platelet Count 339 10*3/uL (140-440); RBC 5.07 10*6/uL (4.10-5.20); RDW 13.7 % (11.5-14.5); WBC 42.63 10*3/uL (4.50-10.00)
[2024-12-03] MEDS ORDERED: VANCOMYCIN IV PER PHARMACY 1 EACH MISC MISCELLANE PRN (11:02)
[2024-12-03] MEDS: CEFEPIME 2 GM in SODIUM CHLORIDE 0.9% 100 ML IVPB STA (11:21)
--- NOTE | 2024-12-03 11:36 | XR ---
EXAMINATION TYPE: XR chest 1V portable DATE OF EXAM: 12/03/2024 11:22 AM COMPARISON: Chest radiographs from 12/03/2024. CLINICAL INDICATION: Female, 69 years old with history of hypotension; TECHNIQUE: XR chest 1V portable Frontal view of the chest. FINDINGS: Lungs/Pleura: There is no evidence of pleural effusion, focal consolidation, or pneumothorax. Pulmonary vascularity: Unremarkable. Heart/mediastinum: Cardiomediastinal silhouette is unremarkable. Musculoskeletal: No acute osseous pathology. IMPRESSION: No acute cardiopulmonary disease/process. [facility], , 12/03/2024 11:34 AM
--- NOTE | 2024-12-03 11:45 | CT ---
EXAMINATION TYPE: CT abdomen pelvis wo con DATE OF EXAM: 12/03/2024 11:23 AM COMPARISON: None CLINICAL INDICATION: Female, 69 years old with history of abdominal pain, sepsis; ABD PAIN TECHNIQUE: Axial CT abdomen pelvis wo con;Sagittal and coronal reformats were created on a separate workstation. Contrast used: mL of , (none if empty) Oral contrast used: without Oral Contrast (none if empty) CT DLP: 934.9 mGycm, Automated exposure control for dose reduction was used. FINDINGS: LOWER CHEST: Unremarkable ABDOMEN LIVER: Unremarkable GALLBLADDER AND BILE DUCTS: Right upper quadrant cholecystectomy clips. PANCREAS: Unremarkable. SPLEEN: Unremarkable. ADRENAL GLANDS: Unremarkable. KIDNEYS AND URETERS: No evidence of hydronephrosis or obstructing renal calculus. The ureters are unr emarkable. Nonobstructing renal calculi bilaterally measuring up to 2 mm. PELVIS BLADDER: No evidence for wall thickening or mass given limitations of exam. REPRODUCTIVE: Unremarkable. ABDOMEN & PELVIS STOMACH AND BOWEL: No evidence of bowel obstruction. Large amount stool seen in the rectum measuring up to 9.4 cm in transverse dimension. Upstream from this there is distention of the colon with large amount of stool present. PERITONEUM/RETROPERITONEUM: No evidence of pneumoperitoneum or free fluid. VASCULATURE: No evidence of aortic aneurysm. MUSCULOSKELETAL: No acute osseous abnormalities. Moderate disc degeneration changes are present throu ghout the thoracolumbar spine. LYMPH NODES: No gross evidence for lymphadenopathy. SOFT TISSUE/ABDOMINAL WALL: Unremarkable IMPRESSION: 1. Marked amount of stool throughout the colon and in the rectum. Fecal disimpaction recommended. 2. Nonobstructing bilateral renal calculi. [facility], , 12/03/2024 11:43 AM
[2024-12-03] MEDS: LACTATED RINGERS 1,000 ML IV ONE ×2 (11:51→13:16)
[2024-12-03 11:52] LABS: Bilirubin,Urine Negative (Negative); Blood,Urine Large (Negative); Budding Yeast,Urine Many /hpf; Color,Urine Red; Glucose,Urine (UA) 4+ (Negative); Ketones,Urine Negative (Negative); Leukocyte Esterase,Urine Large (Negative); Nitrite,Urine Negative (Negative); PH, Urine 5.5 (5.0-8.0); Protein,Urine 2+ (Negative); RBC,Urine >182 /hpf (0-5); Specific Gravity,Urine 1.017 (1.001-1.035); Squamous Epithelial Cell,Urine 24 /hpf (0-4); Urobilinogen,Urine <2.0 mg/dL (<2.0); WBC,Urine >182 /hpf (0-5)
[2024-12-03 12:13] LABS: Lymphocytes # (M) 3.84 k/uL (1.0-4.8); Monocytes # (M) 1.71 k/uL (0-1.0); Neutrophils # (M) 37.08 k/uL (1.3-7.7); Neutrophils % (M) 81 %; Total Cells Counted 100
[2024-12-03 12:14] LABS: RBC Morphology Normal
[2024-12-03] MEDS: VANCOMYCIN 1,250 MG in SODIUM CHLORIDE 0.9% 250 ML IVPB ONE (12:16)
[2024-12-03] MEDS ORDERED: NALOXONE 0.4 MG/ML 1 ML VIAL IV PRN (13:01)
[2024-12-03] MEDS: NOREPINEPHRINE 8 MG in SODIUM CHLORIDE 0.9% 250 ML IV SCH (13:03)
[2024-12-03] MEDS ORDERED: DEXTROSE 50% SYRINGE 50 ML IVP PRN (14:33)
[2024-12-03] MEDS: LACTATED RINGERS 1,000 ML IV SCH (14:34)
[2024-12-03 16:47] LABS: HCT 45.0 % (37.2-46.3); HGB 14.3 g/dL (12.0-15.0); MCH 29.7 pg (27.0-32.0); MCHC 31.8 g/dL (32.0-37.0); MCV 93.6 fL (80.0-97.0); Platelet Count 252 10*3/uL (140-440); RBC 4.81 10*6/uL (4.10-5.20); RDW 13.7 % (11.5-14.5); WBC 38.84 10*3/uL (4.50-10.00)
[2024-12-03 16:55] LABS: ALT 38 U/L (4-34); AST 51 U/L (14-36); African American GFR (CKD) 51 (>60 ml/min/1.73 sqM); Albumin 2.9 g/dL (3.5-5.0); Alkaline Phosphatase 382 U/L (38-126); Anion Gap 20 mmol/L; Blood Urea Nitrogen 43 mg/dL (7-17); Calcium 8.9 mg/dL (8.4-10.2); Carbon Dioxide 17 mmol/L (22-30); Chloride 103 mmol/L (98-107); Glucose 207 mg/dL (74-99); Non-African American GFR(CKD) 44 (>60 ml/min/1.73 sqM); Potassium 4.6 mmol/L (3.5-5.1); Sodium 140 mmol/L (137-145); Total Protein 5.9 g/dL (6.3-8.2)
--- NOTE | 2024-12-03 17:18 | P.CNPUL ---
History of Present Illness Consult date: 12/03/24 Chief complaint: Altered mental status History of present illness: Patient is a 69-year-old female patient, and group home resident, who prese nted to the emergency department because of altered mentation, lethargy, and dehydration. The patient is unable to volunteer any history. She is legally blind. Apparently, the patient usually is alert and oriented x 3. The patient was seen in the emergency department immediately the patient was diagnosed having urine tract infection with secondary sepsis. The patient was found to have a white cell count of 42,000 with a hemoglobin of 15.3. The patient had a platelet count of 339. 81% neutrophilia. Normal coagulation profile. The patient was in acute kidney failure with a BUN of 42 and a creatinine of 1.6. Serum bicarb was at 16 with a gap of 21. Blood sugar was at 282. Lactic acid level was at 6. Mild transaminitis with vallecular phosphatase being elevated. UA was abnormal with large number of white cells. Arguelles catheter was inserted and urine output was minimal along with sediments. The patient was started on IV fluids. The patient was given a 20 L of normal saline. 1/3 L is to infuse. The patient will be started on norepinephrine for blood pressure support. The patient was started on a combination of cefepime and vancomycin. Meanwhile, the patient is currently on 2 L of oxygen by nasal cannula with pulse ox of 98%. No reported aspiration. Chest x-ray showed no acute abnormalities. CAT scan of the abdomen and pelvis was also noted and the patient was found to have marked amount of stool in the colon and the rectum and nonobstructive bilateral renal c alculi. The patient was given an enema in the emergency department. At this point in time, the patient had a lactated Ringer at rate of 130 cc an hour. 1/3 L of normal saline was also infused. Due to diminished level of consciousness, the patient will be kept n.p.o. for now. Home medications were all reviewed. Review of Systems ROS unobtainable: due to mental status 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, ESBL Date of last positivie culture/infection: 10/06/20 ESBL E.coli MDRO Source:: URINE Past Surgical History: No Surgical Hx Reported Past Anesthesia/Blood Transfusion Reactions: No Reported Reaction Past Psychological History: Anxiety Smoking Status: Never smoker Past Alcohol Use History: None Reported Past Drug Use History: None Reported - Past Family History Brother(s) Additional Family Medical History / Comment(s): 2 brothers , 1 in [place], 1 in [place] Medications and Allergies Home Medications Medication Instructions Recorded Confirmed Type Aspirin [Adult Low Dose Aspirin EC] 81 mg PO DAILY 10/19/18 12/03/24 History Levothyroxine Sodium [Synthroid] 25 mcg PO DAILY 10/19/18 12/03/24 History Multivitamins, Thera [Multivitamin 1 tab PO DAILY 10/19/18 12/03/24 History (formulary)] Oxybutynin Xl [Ditropan Xl] 5 mg PO DAILY 10/19/18 12/03/24 History Simvastatin [Zocor] 20 mg PO HS 10/19/18 12/03/24 History sitaGLIPtin PHOS/metFORMIN HCL 1 tab PO DAILY 10/19/18 12/03/24 History [Janumet Xr 100-1,000 mg Tablet] ALPRAZolam [Xanax] 0.5 mg PO TID 12/03/24 12/03/24 History Acetaminophen Tab [Tylenol] 650 mg PO Q4H PRN 12/03/24 12/03/24 History Benzocaine Gum 20% 1 applic DENTAL TID PRN 12/03/24 12/03/24 History Chlorhexidine Gluconate [Peridex] 15 ml PO BID 12/03/24 12/03/24 History Cholecalciferol (Vitamin D3) 75 mcg PO DAILY 12/03/24 12/03/24 History [Vitamin D3 (3000 Iu)] Cranberry 425mg Capsule 425 mg PO BID 12/03/24 12/03/24 History DULoxetine HCL [Cymbalta] 60 mg PO DAILY 12/03/24 12/03/24 History Dextromethorphan HBr/Quinidine 1 cap PO DAILY 12/03/24 12/03/24 History [Nuedexta 20-10 mg Capsule] Empagliflozin [Jardiance] 10 mg PO DAILY 12/03/24 12/03/24 History Gabapentin [Neurontin] 300 mg PO BID 12/03/24 12/03/24 History HYDROcodone/APAP 10-325MG [[place] 1 tab PO Q4H 12/03/24 12/03/24 History 10-325] Ibuprofen [Motrin] 400 mg PO DAILY PRN 12/03/24 12/03/24 History Insulin Degludec [Tresiba] 20 units SQ BID 12/03/24 12/03/24 History Loperamide [Imodium] 2 mg PO DIRECTED PRN 12/03/24 12/03/24 History Loratadine [Claritin] 10 mg PO DAILY 12/03/24 12/03/24 History Mag Hydrox/Aluminum Hyd/Simeth 10 ml PO Q4H PRN 12/03/24 12/03/24 History [Mylanta Maximum Strength Liq] Magic Butt Paste 1 applic TOPICAL BID 12/03/24 12/03/24 History Magnesium Hydroxide [Milk of 7,200 mg PO Q48H PRN 12/03/24 12/03/24 History Magnesia Concentrate] Melatonin 5 mg PO HS 12/03/24 12/03/24 History Menthol [Biofreeze] 1 applic TOPICAL BID PRN 12/03/24 12/03/24 History Menthol [Biofreeze] 1 applic TOPICAL Q6H PRN 12/03/24 12/03/24 History Na Phos,M-B/Na Phos,Di-Ba [Fleet 133 ml RECTAL DAILY PRN 12/03/24 12/03/24 History Adult] OLANZapine [ZyPREXA] 5 mg PO HS 12/03/24 12/03/24 History Omeprazole 20 mg PO DAILY 12/03/24 12/03/24 History Psyllium Husk (with Sugar) 1 tbsp PO DAILY 12/03/24 12/03/24 History [Metamucil Powder] Sennosides/Docusate Sodium 1 tab PO BID 12/03/24 12/03/24 History [Senna-S 8.6-50 mg Tablet] Sodium Chloride [Saline Nasal Mist] 2 spray EA NOSTRIL Q8H PRN 12/03/24 12/03/24 History Valproic Acid Oral Soln [Depakene 250 mg PO Q6H 12/03/24 12/03/24 History Syrup] bisacodyL [Dulcolax] 10 mg RECTAL DAILY PRN 12/03/24 12/03/24 History buPROPion XL [Wellbutrin XL] 150 mg PO DAILY 12/03/24 12/03/24 History diphenhydrAMINE [Benadryl] 50 mg PO Q6H PRN 12/03/24 12/03/24 History guaiFENesin SYRUP 100MG/5ML 200 mg PO Q4H PRN 12/03/24 12/03/24 History [Robitussin] lisinopriL [Zestril] 5 mg PO DAILY 12/03/24 12/03/24 History polyethylene glycoL 3350 [Miralax] 17 gm PO DAILY 12/03/24 12/03/24 History rOPINIRole HCL [Requip] 1 mg PO HS 12/03/24 12/03/24 History Allergies Allergy/AdvReac Type Severity Reaction Status Date / Time sulfamethoxazole Allergy Unknown Verified 12/03/24 14:53 [From Bactrim] trimethoprim [From Bactrim] Allergy Unknown Verified 12/03/24 14:53 Physical Exam Vitals: Vital Signs Temp Pulse Resp BP Pulse Ox 12/03/24 16:30 76 20 118/80 98 12/03/24 16:00 74 18 122/47 97 12/03/24 15:30 74 18 114/64 96 12/03/24 15:00 73 18 112/58 97 12/03/24 14:43 97.5 F L 12/03/24 14:30 70 20 107/71 96 12/03/24 14:15 70 20 104/56 96 12/03/24 14:00 69 18 106/85 97 12/03/24 13:47 69 18 101/57 97 12/03/24 13:30 70 18 105/54 96 12/03/24 13:25 69 18 103/53 95 12/03/24 13:20 93/57 12/03/24 13:18 76 18 88/53 97 12/03/24 13:14 72 18 72/40 95 12/03/24 12:46 73 20 82/41 98 12/03/24 12:15 72 18 91/42 97 12/03/24 12:00 74 20 85/48 97 12/03/24 11:57 72 18 79/44 95 12/03/24 11:24 71 18 79/41 97 12/03/24 10:45 70 18 88/38 98 12/03/24 10:15 75 20 81/45 97 12/03/24 09:46 97 F L 77 22 77/63 92 L Intake and Output 12/03/24 12/03/24 12/03/24 06:59 14:59 22:59 Intake Total 7.490 2.762 Balance 7.490 2.762 Intake: Intake, IV Titration 7.490 2.762 Amount Norepinephrine 8 mg In 7.490 2.762 Sodium Chloride 0.9% 250 ml @ 0.03 MCG/KG/MIN 4. 213 mls/hr IV .Q24H [facility] Rx#:[id number] Other: # Bowel Movements 1 Weight 72.575 kg 72.575 kg The patient appeared to be quite dehydrated with dry mucous membranes. No signs of any respiratory distress and the patient is currently on 2 L of oxygen by nasal cannula. Body mass index is 25.8. Head exam is unremarkable. No scleral icterus or corneal arcus noted. Neck is without jugular venous distension, thyromegaly, or carotid bruits. Carotid upstrokes are brisk bilaterally. Lungs are clear to auscultation and percussion. Cardiac exam reveals the PMI to be normally sized and situated. Rhythm is regular. First and second heart sounds normal. No murmurs, rubs or gallops. Abdominal exam reveals normal bowel sounds, no masses, no organomegaly and no aortic enlargement. The abdomen is slightly distended. No direct tenderness. No rebound tenderness or guarding. Extremities are nonedematous and both femoral and pedal pulses are normal. Examination of the skin revealed no evidence of significant rashes, suspicious appearing nevi or other concerning lesions. Neurologically, the patient is awake and arousable. He is not following any commands. Not answering questions for now. Moving all 4 extremities without any limitation. Pupils are equal reactive to light. No facial asymmetry. Results - Laboratory Findings CBC and BMP: 12/03/24 15:50 12/03/24 15:50 PT/INR, D-dimer PT 11.4 sec (10.0-12.5) 12/03/24 10:25 INR 1.0 (<1.2) 12/03/24 10:25 Abnormal lab findings: Abnormal Labs 12/03/24 12/03/24 12/03/24 10:18 10:25 10:25 WBC 42.63 H Hgb 15.3 H Hct 47.0 H MCHC MPV 9.2 L Immature Gran # 0.81 H Neutrophils # (Manual) 37.08 H Monocytes # (Manual) 1.71 H Carbon Dioxide 16 L BUN 42 H Creatinine 1.60 H Glucose 282 H POC Glucose (mg/dL) 257 H Plasma Lactic Acid Madhu Magnesium 3.2 H AST 48 H ALT 44 H Alkaline Phosphatase 413 H Total Protein Albumin Urine Appearance Urine Protein Urine Glucose (UA) Urine Blood Ur Leukocyte Esterase Urine RBC Urine WBC Urine WBC Clumps Ur Squamous Epith Cells Urine Yeast (Budding) 12/03/24 12/03/24 12/03/24 10:25 11:39 15:50 WBC Hgb Hct MCHC MPV Immature Gran # Neutrophils # (Manual) Monocytes # (Manual) Carbon Dioxide BUN Creatinine Glucose POC Glucose (mg/dL) Plasma Lactic Acid Madhu 6.0 H* 6.2 H* Magnesium AST ALT Alkaline Phosphatase Total Protein Albumin Urine Appearance Turbid H Urine Protein 2+ H Urine Glucose (UA) 4+ H Urine Blood Large H Ur Leukocyte Esterase Large H Urine RBC >182 H Urine WBC >182 H Urine WBC Clumps Many H Ur Squamous Epith Cells 24 H Urine Yeast (Budding) Many H 12/03/24 12/03/24 15:50 15:50 WBC 38.84 H Hgb Hct MCHC 31.8 L MPV Immature Gran # 0.47 H Neutrophils # (Manual) Monocytes # (Manual) Carbon Dioxide 17 L BUN 43 H Creatinine 1.25 H Glucose 207 H POC Glucose (mg/dL) Plasma Lactic Acid Madhu Magnesium AST 51 H ALT 38 H Alkaline Phosphatase 382 H Total Protein 5.9 L Albumin 2.9 L Urine Appearance Urine Protein Urine Glucose (UA) Urine Blood Ur Leukocyte Esterase Urine RBC Urine WBC Urine WBC Clumps Ur Squamous Epith Cells Urine Yeast (Budding) - Diagnostic Findings Chest x-ray: image reviewed Assessment and Plan Plan: Septic shock secondary to underlying urine tract infection. Acute hypotension secondary to above, currently on fluids and pressors and broad-spectrum antibiotics UTI, post Arguelles catheter insertion. Urine is cloudy, awaiting urine cultures and blood cultures. Acute leukocytosis secondary to above Acute lactic acidosis Acute kidney injury secondary to above Acute dehydration Fecal constipation/impaction Diabetes mellitus type 2 Hypothyroidism Hypertension Hyperlipidemia History of chronic depression Plan The patient was given a total of 3 days of IV fluids. Currently on lactated Ringer at rate of 130 cc an hour Urine cultures and blood cultures IV cefepime IV vancomycin Norepinephrine to support the blood pressure Arguelles catheter is been inserted Lovenox for DVT prophylaxis Keep the patient n.p.o. due to diminished level of consciousness Insulin per sliding scale coverage for blood sugar control IV Protonix Will continue to follow. The patient will be admitted to the intensive care as long as the patient remains pressor dependent. CODE STATUS needs to be reestablished. For now, reported CODE STATUS is full. Time with Patient: Greater than 30
[2024-12-03 17:32] LABS: Lymphocytes # (M) 4.27 k/uL (1.0-4.8); Monocytes # (M) 1.55 k/uL (0-1.0); Neutrophils # (M) 33.40 k/uL (1.3-7.7); Neutrophils % (M) 76 %; Total Cells Counted 200
[2024-12-03 17:34] LABS: RBC Morphology Normal
[2024-12-03 17:43] LABS: Glucose,Whole Blood 164 mg/dL (70-110)
[2024-12-03] MEDS: INSULIN LISPRO (HumaLOG) 100 UNIT/ML 10 mL VL SQ SCH (17:46)
[2024-12-03] MEDS: CEFEPIME 2 GM in SODIUM CHLORIDE 0.9% 100 ML IVPB SCH (18:32)
[2024-12-03 21:03] LABS: Glucose,Whole Blood 156 mg/dL (70-110)
--- NOTE | 2024-12-03 22:24 | P.CONS ---
History of Present Illness - Reason for Consult Consult date: 12/03/24 Sepsis Requesting physician: Leticia Downs - Chief Complaint Mental status changes and weakness x 1 day - History of Present Illness Patient is a 69-year-old female with a past medical history significant for type 2 diabetes mellitus hypertension hyperlipidemia hy pothyroidism and [facility] resident patient has been sent to the hospital from the [facility] concerning for altered mental status also found to be lethargic per the patient was brought into the hospital on arrival to the ER patient was afebrile patient was not tachycardic however she was noticed to be mildly hypotensive requiring fluid and pressor support also noted to be mildly hypoxic patient did have a white count of 38.84 with a left shift BUN and creatinine has been mildly elevated lactic acid is elevated liver enzymes are mildly elevated patient did have a chest x-ray no acute cardiopulmonary disease process patient also have abdominal pelvis CT moderate amount of stool throughou t the colon and the rectum fecal disimpaction recommended nonobstructive bilateral renal calculi patient was started on cefepime and vancomycin infectious disease was consulted for sepsis patient is on my evaluation slightly weak the patient denies having any headache denies having any chest pain or shortness of breath cough has been complaining some abdominal pain but unable to quantify it any further some nausea but no vomiting and complaining of constipation review of her culture data patient has grown predominantly Klebsiella and Proteus over the last 1 year lumbar ESBL Review of Systems Positive points has been mentioned in HPI complete review could not be obtained because of his underlying mental status 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, 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 Past Surgical History: No Surgical Hx Reported Past Anesthesia/Blood Transfusion Reactions: No Reported Reaction Past Psychological History: Anxiety Smoking Status: Never smoker Past Alcohol Use History: None Reported Past Drug Use History: None Reported - Past Family History Brother(s) Additional Family Medical History / Comment(s): 2 brothers , 1 in [place], 1 in [place] Medications and Allergies Home Medications Medication Instructions Recorded Confirmed Type Aspirin [Adult Low Dose Aspirin EC] 81 mg PO DAILY 10/19/18 12/03/24 History Levothyroxine Sodium [Synthroid] 25 mcg PO DAILY 10/19/18 12/03/24 History Multivitamins, Thera [Multivitamin 1 tab PO DAILY 10/19/18 12/03/24 History (formulary)] Oxybutynin Xl [Ditropan Xl] 5 mg PO DAILY 10/19/18 12/03/24 History Simvastatin [Zocor] 20 mg PO HS 10/19/18 12/03/24 History sitaGLIPtin PHOS/metFORMIN HCL 1 tab PO DAILY 10/19/18 12/03/24 History [Janumet Xr 100-1,000 mg Tablet] ALPRAZolam [Xanax] 0.5 mg PO TID 12/03/24 12/03/24 History Acetaminophen Tab [Tylenol] 650 mg PO Q4H PRN 12/03/24 12/03/24 History Benzocaine Gum 20% 1 applic DENTAL TID PRN 12/03/24 12/03/24 History Chlorhexidine Gluconate [Peridex] 15 ml PO BID 12/03/24 12/03/24 History Cholecalciferol (Vitamin D3) 75 mcg PO DAILY 12/03/24 12/03/24 History [Vitamin D3 (3000 Iu)] Cranberry 425mg Capsule 425 mg PO BID 12/03/24 12/03/24 History DULoxetine HCL [Cymbalta] 60 mg PO DAILY 12/03/24 12/03/24 History Dextromethorphan HBr/Quinidine 1 cap PO DAILY 12/03/24 12/03/24 History [Nuedexta 20-10 mg Capsule] Empagliflozin [Jardiance] 10 mg PO DAILY 12/03/24 12/03/24 History Gabapentin [Neurontin] 300 mg PO BID 12/03/24 12/03/24 History HYDROcodone/APAP 10-325MG [[place] 1 tab PO Q4H 12/03/24 12/03/24 History 10-325] Ibuprofen [Motrin] 400 mg PO DAILY PRN 12/03/24 12/03/24 History Insulin Degludec [Tresiba] 20 units SQ BID 12/03/24 12/03/24 History Loperamide [Imodium] 2 mg PO DIRECTED PRN 12/03/24 12/03/24 History Loratadine [Claritin] 10 mg PO DAILY 12/03/24 12/03/24 History Mag Hydrox/Aluminum Hyd/Simeth 10 ml PO Q4H PRN 12/03/24 12/03/24 History [Mylanta Maximum Strength Liq] Magic Butt Paste 1 applic TOPICAL BID 12/03/24 12/03/24 History Magnesium Hydroxide [Milk of 7,200 mg PO Q48H PRN 12/03/24 12/03/24 History Magnesia Concentrate] Melatonin 5 mg PO HS 12/03/24 12/03/24 History Menthol [Biofreeze] 1 applic TOPICAL BID PRN 12/03/24 12/03/24 History Menthol [Biofreeze] 1 applic TOPICAL Q6H PRN 12/03/24 12/03/24 History Na Phos,M-B/Na Phos,Di-Ba [Fleet 133 ml RECTAL DAILY PRN 12/03/24 12/03/24 History Adult] OLANZapine [ZyPREXA] 5 mg PO HS 12/03/24 12/03/24 History Omeprazole 20 mg PO DAILY 12/03/24 12/03/24 History Psyllium Husk (with Sugar) 1 tbsp PO DAILY 12/03/24 12/03/24 History [Metamucil Powder] Sennosides/Docusate Sodium 1 tab PO BID 12/03/24 12/03/24 History [Senna-S 8.6-50 mg Tablet] Sodium Chloride [Saline Nasal Mist] 2 spray EA NOSTRIL Q8H PRN 12/03/24 12/03/24 History Valproic Acid Oral Soln [Depakene 250 mg PO Q6H 12/03/24 12/03/24 History Syrup] bisacodyL [Dulcolax] 10 mg RECTAL DAILY PRN 12/03/24 12/03/24 History buPROPion XL [Wellbutrin XL] 150 mg PO DAILY 12/03/24 12/03/24 History diphenhydrAMINE [Benadryl] 50 mg PO Q6H PRN 12/03/24 12/03/24 History guaiFENesin SYRUP 100MG/5ML 200 mg PO Q4H PRN 12/03/24 12/03/24 History [Robitussin] lisinopriL [Zestril] 5 mg PO DAILY 12/03/24 12/03/24 History polyethylene glycoL 3350 [Miralax] 17 gm PO DAILY 12/03/24 12/03/24 History rOPINIRole HCL [Requip] 1 mg PO HS 12/03/24 12/03/24 History Allergies Allergy/AdvReac Type Severity Reaction Status Date / Time sulfamethoxazole Allergy Unknown Verified 12/03/24 14:53 [From Bactrim] trimethoprim [From Bactrim] Allergy Unknown Verified 12/03/24 14:53 Physical Exam Vitals: Vital Signs Temp Pulse Resp BP Pulse Ox 12/03/24 15:30 74 18 114/64 96 12/03/24 15:00 73 18 112/58 97 12/03/24 14:43 97.5 F L 12/03/24 14:30 70 20 107/71 96 12/03/24 14:15 70 20 104/56 96 12/03/24 14:00 69 18 106/85 97 12/03/24 13:47 69 18 101/57 97 12/03/24 13:30 70 18 105/54 96 12/03/24 13:25 69 18 103/53 95 12/03/24 13:20 93/57 12/03/24 13:18 76 18 88/53 97 12/03/24 13:14 72 18 72/40 95 12/03/24 12:46 73 20 82/41 98 12/03/24 12:15 72 18 91/42 97 12/03/24 12:00 74 20 85/48 97 12/03/24 11:57 72 18 79/44 95 12/03/24 11:24 71 18 79/41 97 12/03/24 10:45 70 18 88/38 98 12/03/24 10:15 75 20 81/45 97 12/03/24 09:46 97 F L 77 22 77/63 92 L Intake and Output 12/03/24 12/03/24 12/03/24 06:59 14:59 22:59 Intake Total 7.490 2.762 Balance 7.490 2.762 Intake: Intake, IV Titration 7.490 2.762 Amount Norepinephrine 8 mg In 7.490 2.762 Sodium Chloride 0.9% 250 ml @ 0.03 MCG/KG/MIN 4. 213 mls/hr IV .Q24H [facility] Rx#:[id number] Other: # Bowel Movements 1 Weight 72.575 kg 72.575 kg GENERAL DESCRIPTION: Elderly female lying in bed, no distress. No tachypnea or accessory muscle of respiration use. HEENT: Shows Pallor , no scleral icterus. Oral mucous membrane is dry. NECK: Trachea central, no thyromegaly. LUNGS: Unlabored breathing. Clear to auscultation anteriorly. No wheeze or crackle. HEART: S1, S2, regular rate and rhythm. No loud murmur ABDOMEN: Soft, mild distention and tenderness EXTREMITIES: No edema of feet. SKIN: No rash, no masses palpable. NEUROLOGICAL: The patient is lethargic but arousable, mood and affect normal. Results CBC & Chem 7: 12/03/24 15:50 12/03/24 15:50 Labs: Abnormal Lab Results - Last 24 Hours (Table) 12/03/24 12/03/24 12/03/24 Range/Units 10:18 10:25 10:25 WBC 42.63 H (4.50-10.00) 10*3/uL Hgb 15.3 H (12.0-15.0) g/dL Hct 47.0 H (37.2-46.3) % MPV 9.2 L (9.5-12.2) fL Immature Gran # 0.81 H (0.00-0.04) 10*3/uL Neutrophils # (Manual) 37.08 H (1.3-7.7) k/uL Monocytes # (Manual) 1.71 H (0-1.0) k/uL Carbon Dioxide 16 L (22-30) mmol/L BUN 42 H (7-17) mg/dL Creatinine 1.60 H (0.52-1.04) mg/dL Glucose 282 H (74-99) mg/dL POC Glucose (mg/dL) 257 H (70-110) mg/dL Plasma Lactic Acid Madhu (0.7-2.0) mmol/L Magnesium 3.2 H (1.6-2.3) mg/dL AST 48 H (14-36) U/L ALT 44 H (4-34) U/L Alkaline Phosphatase 413 H (38-126) U/L Urine Appearance (Clear) Urine Protein (Negative) Urine Glucose (UA) (Negative) Urine Blood (Negative) Ur Leukocyte Esterase (Negative) Urine RBC (0-5) /hpf Urine WBC (0-5) /hpf Urine WBC Clumps (None) /hpf Ur Squamous Epith Cells (0-4) /hpf Urine Yeast (Budding) (None) /hpf 12/03/24 12/03/24 Range/Units 10:25 11:39 WBC (4.50-10.00) 10*3/uL Hgb (12.0-15.0) g/dL Hct (37.2-46.3) % MPV (9.5-12.2) fL Immature Gran # (0.00-0.04) 10*3/uL Neutrophils # (Manual) (1.3-7.7) k/uL Monocytes # (Manual) (0-1.0) k/uL Carbon Dioxide (22-30) mmol/L BUN (7-17) mg/dL Creatinine (0.52-1.04) mg/dL Glucose (74-99) mg/dL POC Glucose (mg/dL) (70-110) mg/dL Plasma Lactic Acid Madhu 6.0 H* (0.7-2.0) mmol/L Magnesium (1.6-2.3) mg/dL AST (14-36) U/L ALT (4-34) U/L Alkaline Phosphatase (38-126) U/L Urine Appearance Turbid H (Clear) Urine Protein 2+ H (Negative) Urine Glucose (UA) 4+ H (Negative) Urine Blood Large H (Negative) Ur Leukocyte Esterase Large H (Negative) Urine RBC >182 H (0-5) /hpf Urine WBC >182 H (0-5) /hpf Urine WBC Clumps Many H (None) /hpf Ur Squamous Epith Cells 24 H (0-4) /hpf Urine Yeast (Budding) Many H (None) /hpf Assessment and Plan (1) Sepsis Current Visit: Yes Status: Acute Code(s): A41.9 - SEPSIS, UNSPECIFIED ORGANISM SNOMED Code(s): 10189952 (2) UTI (urinary tract infection) Current Visit: Yes Status: Acute Code(s): N39.0 - URINARY TRACT INFECTION, SITE NOT SPECIFIED SNOMED Code(s): 85502757 Plan: 1patient presented to hospital with sepsis in this patient who did have hypotension requiring fluid and pressor support patient also have significant elevated white count elevated lactic acid medically for SIRS/sepsis source is likely urinary patient also have significant stool burden on the CT but did not mention evidence of colitis or diverticulitis and no need for further enteric gram-negative and less likely gram positive sylvester 2-patient will be treated with cefepime while waiting for the culture to finalize however discontinue vancomycin at this bedside question answered We will follow on clinical condition and cultures to further adjust medication if needed Thank you for this consultation we will follow the patient along with you Dictation was produced using [employer] dictation software. please excuse any grammatical, word or spelling errors. Time with Patient: Greater than 30
--- NOTE | 2024-12-03 23:21 | HP ---
HISTORY AND PHYSICAL CHIEF COMPLAINT: Change in mental status and hypotension. HISTORY OF PRESENT ILLNESS: This 69-year-old woman with a past medical history of multiple medical problems, who is a detention resident, apparently vomiting yesterday and the patient became confused and the patient was hypotensive and the patient taken to [facility], admitted for evaluation and treatment. The patient had a high white count is 42.60 and also hemoglobin was found to be 15.3. Lactic acid 6. The patient had significant features of UTI. The patient admitted for evaluation and treatment. There is no history of fever, rigors, chills at this time. PAST MEDICAL HISTORY: Reviewed include diabetes mellitus type 2, hypertension, hyperlipidemia, CRE ESBL. Rest of the history from chart is also reviewed. HOME MEDICATIONS: Reviewed include Janumet. Doses and rest of medications reviewed. ALLERGIES: Bactrim. Family history, social history and review of systems could not be taken because of change in mental status. PHYSICAL EXAMINATION: VITAL SIGNS: Pulse is 69, blood pressure 101/57, respirations 18. HEENT: Conjunctivae normal. Oral mucosa is pale. Some coffee-grounds emesis present otherwise. NECK: No JVD. CARDIOVASCULAR: S1, S2. RESPIRATION: Few scattered rhonchi. ABDOMEN: Soft, nontender. No mass. LEGS: No edema. No swelling. NERVOUS SYSTEM: Diffusely weak. LABORATORY DATA: Reviewed. ASSESSMENT: 1. Hypotension with acute severe urinary tract infection with septic shock. 2. Rule out gastrointestinal bleed and coffee-grounds emesis. 3. Elevated WBC and leukemoid reaction. 4. Acute renal failure with acute tubular necrosis. 5. Diabetes mellitus, type 2. 6. Hypertension. 7. Hyperlipidemia. 8. 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 9. No code, no CPR, no vent. RECOMMENDATIONS AND DISCUSSION: This 69-year-old woman presented with multiple complex medical issues, we will monitor the patient closely. Continue the current medical management and continue symptomatic treatment. The patient is started on cefepime. We will continue to monitor. I would add Diflucan to the current regimen. Infectious Disease evaluation cultures. Monitor blood pressure closely. The abdominal pelvis CAT scan, which I reviewed personally showed possible constipation. Once again, the prognosis maybe guarded. Further recommendations to follow. MMODL / IJN: [id number] /
[2024-12-04 03:06] LABS: HCT 45.2 % (37.2-46.3); HGB 14.9 g/dL (12.0-15.0); MCH 30.2 pg (27.0-32.0); MCHC 33.0 g/dL (32.0-37.0); MCV 91.7 fL (80.0-97.0); Platelet Count 358 10*3/uL (140-440); RBC 4.93 10*6/uL (4.10-5.20); RDW 13.5 % (11.5-14.5); WBC 35.21 10*3/uL (4.50-10.00)
[2024-12-04 03:10] LABS: African American GFR (CKD) 89 (>60 ml/min/1.73 sqM); Anion Gap 12 mmol/L; Blood Urea Nitrogen 44 mg/dL (7-17); Calcium 8.8 mg/dL (8.4-10.2); Carbon Dioxide 21 mmol/L (22-30); Chloride 111 mmol/L (98-107); Glucose 117 mg/dL (74-99); Non-African American GFR(CKD) 77 (>60 ml/min/1.73 sqM); Potassium 3.7 mmol/L (3.5-5.1); Sodium 144 mmol/L (137-145)
[2024-12-04] MEDS: CEFEPIME 2 GM in SODIUM CHLORIDE 0.9% 100 ML IVPB SCH ×2 (06:06→15:31)
[2024-12-04 06:42] LABS: Lymphocytes # (M) 3.17 k/uL (1.0-4.8); Monocytes # (M) 2.11 k/uL (0-1.0); Neutrophils # (M) 30.28 k/uL (1.3-7.7); Neutrophils % (M) 82 %; Total Cells Counted 200
[2024-12-04 06:44] LABS: RBC Morphology Normal
[2024-12-04 07:21] LABS: Glucose,Whole Blood 105 mg/dL (70-110)
[2024-12-04 11:53] LABS: Glucose,Whole Blood 87 mg/dL (70-110)
[2024-12-04] MEDS ORDERED: VANCOMYCIN 1,250 MG in SODIUM CHLORIDE 0.9% 250 ML IVPB SCH (12:00)
--- NOTE | 2024-12-04 12:03 | P.PN ---
Subjective Progress Note Date: 12/04/24 Principal diagnosis: Septic shock secondary to UTI Patient is a 69-year-old female patient, and alf resident, who presented to the emergency department because of altered mentation, lethargy, and dehydration. The patient is unable to volunteer any history. She is le gally blind. Apparently, the patient usually is alert and oriented x 3. The patient was seen in the emergency department immediately the patient was diagnosed having urine tract infection with secondary sepsis. The patient was found to have a white cell count of 42,000 with a hemoglobin of 15.3. The patient had a platelet count of 339. 81% neutrophilia. Normal coagulation profile. The patient was in acute kidney failure with a BUN of 42 and a creatinine of 1.6. Serum bicarb was at 16 with a gap of 21. Blood sugar was at 282. Lactic acid level was at 6. Mild transaminitis with vallecular phosphatase being elevated. UA was abnormal with large number of white cells. Arguelles catheter was inserted and urine output was minimal along with sediments. The patient was started on IV fluids. The patient was given a 20 L of normal saline. 1/3 L is to infuse. The patient will be started on norepinephrine for blood pressure support. The patient was started on a combination of cefepime and vancomycin. Meanwhile, the patient is currently on 2 L of oxygen by nasal cannula with pulse ox of 98%. No reported aspiration. Chest x-ray showed no acute abnormalities. CAT scan of the abdomen and pelvis was also noted and the patient was found to have marked amount of stool in the colon and the rectum and nonobstructive bilateral renal calculi. The patient was given an enema in the emergency department. At this point in time, the patient had a lactated Ringer at rate of 130 cc an hour. 1/3 L of normal saline was also infused. Due to diminished level of consciousness, the patient will be kept n.p.o. for now. Home medications were all reviewed. Patient was seen today while in the ER, patient is now off norepinephrine, her initial presentation is a presentation of septic shock with urinary tract infection associate with hypotension, she has acute leukocytosis with acute la ctic acidosis and acute kidney injury secondary to dehydration in addition she has fecal constipation/impaction with type 2 diabetes hypothyroidism hypertension and chronic depression. Patient is not a great historian, but she is hemodynamically stable, she has altered mental status and lethargy, but does not seem to be in any form of respiratory distress. Hence I am planning to downgrade the patient to a medical floor instead of going to ICU. Labs were reviewed today she has leukocytosis with WBC count of 35.2 hemoglobin 14.9 electrolytes are normal renal profile showed a BUN of 44 creatinine 0.79 lactic acid yesterday was 2.3 and it is 1.8 today. No microbiology available at this point. But we suspect that the patient is septic from urinary tract infection. Objective - Vital Signs Vital signs: Vital Signs Temp 98.6 F 12/04/24 11:24 Pulse 98 12/04/24 10:21 Resp 18 12/04/24 10:21 BP 154/72 12/04/24 10:21 Pulse Ox 96 12/04/24 10:21 FiO2 Intake & Output 12/03/24 12/04/24 12/04/24 18:59 06:59 18:59 Intake Total 10.252 Output Total 508 253 0609 Balance -589.748 -800 -1000 Weight 72.575 kg Intake: Intake, IV Titration 10.252 Amount Norepinephrine 8 mg In 10.252 Sodium Chloride 0.9% 250 ml @ 0.03 MCG/KG/MIN 4. 213 mls/hr IV .Q24H [facility] Rx#:[id number] Output: Urine 650 343 5101 Uretheral (Arguelles) [phone] Other: # Bowel Movements 1 - Exam GENERAL DESCRIPTION: Revealed a 69-year-old female in no distress, confused. HEENT: PERRLA, EOMI, nonicteric, patient is pale. No neck masses no JVD no stridor. NECK: Supple, no neck masses no JVD. LUNGS: Diminished breath sound bilaterally no crackles rhonchi or wheezes HEART: S1, S2, regular rate and rhythm. No loud murmur ABDOMEN: Soft obese nontender no rebound no guarding. EXTREMITIES: No clubbing edema or cyanosis SKIN: No rashes NEUROLOGICAL: The patient is lethargic but arousable, - Labs CBC & Chem 7: 12/04/24 02:14 12/04/24 02:14 Labs: Abnormal Lab Results - Last 24 Hours (Table) 12/03/24 12/03/24 12/03/24 Range/Units 10:25 11:39 15:50 WBC (4.50-10.00) 10*3/uL MCHC (32.0-37.0) g/dL MPV (9.5-12.2) fL Immature Gran # (0.00-0.04) 10*3/uL Neutrophils # (Manual) 37.08 H (1.3-7.7) k/uL Monocytes # (Manual) 1.71 H (0-1.0) k/uL Chloride (98-107) mmol/L Carbon Dioxide (22-30) mmol/L BUN (7-17) mg/dL Creatinine (0.52-1.04) mg/dL Glucose (74-99) mg/dL POC Glucose (mg/dL) (70-110) mg/dL Hemoglobin A1c (<=6.0) % Plasma Lactic Acid Madhu 6.2 H* (0.7-2.0) mmol/L AST (14-36) U/L ALT (4-34) U/L Alkaline Phosphatase (38-126) U/L Total Protein (6.3-8.2) g/dL Albumin (3.5-5.0) g/dL Urine Appearance Turbid H (Clear) Urine Protein 2+ H (Negative) Urine Glucose (UA) 4+ H (Negative) Urine Blood Large H (Negative) Ur Leukocyte Esterase Large H (Negative) Urine RBC >182 H (0-5) /hpf Urine WBC >182 H (0-5) /hpf Urine WBC Clumps Many H (None) /hpf Ur Squamous Epith Cells 24 H (0-4) /hpf Urine Yeast (Budding) Many H (None) /hpf 12/03/24 12/03/24 12/03/24 Range/Units 15:50 15:50 17:41 WBC 38.84 H (4.50-10.00) 10*3/uL MCHC 31.8 L (32.0-37.0) g/dL MPV (9.5-12.2) fL Immature Gran # 0.47 H (0.00-0.04) 10*3/uL Neutrophils # (Manual) 33.40 H (1.3-7.7) k/uL Monocytes # (Manual) 1.55 H (0-1.0) k/uL Chloride (98-107) mmol/L Carbon Dioxide 17 L (22-30) mmol/L BUN 43 H (7-17) mg/dL Creatinine 1.25 H (0.52-1.04) mg/dL Glucose 207 H (74-99) mg/dL POC Glucose (mg/dL) 164 H (70-110) mg/dL Hemoglobin A1c (<=6.0) % Plasma Lactic Acid Madhu (0.7-2.0) mmol/L AST 51 H (14-36) U/L ALT 38 H (4-34) U/L Alkaline Phosphatase 382 H (38-126) U/L Total Protein 5.9 L (6.3-8.2) g/dL Albumin 2.9 L (3.5-5.0) g/dL Urine Appearance (Clear) Urine Protein (Negative) Urine Glucose (UA) (Negative) Urine Blood (Negative) Ur Leukocyte Esterase (Negative) Urine RBC (0-5) /hpf Urine WBC (0-5) /hpf Urine WBC Clumps (None) /hpf Ur Squamous Epith Cells (0-4) /hpf Urine Yeast (Budding) (None) /hpf 12/03/24 12/03/24 12/03/24 Range/Units 19:42 21:02 23:09 WBC (4.50-10.00) 10*3/uL MCHC (32.0-37.0) g/dL MPV (9.5-12.2) fL Immature Gran # (0.00-0.04) 10*3/uL Neutrophils # (Manual) (1.3-7.7) k/uL Monocytes # (Manual) (0-1.0) k/uL Chloride (98-107) mmol/L Carbon Dioxide (22-30) mmol/L BUN (7-17) mg/dL Creatinine (0.52-1.04) mg/dL Glucose (74-99) mg/dL POC Glucose (mg/dL) 156 H (70-110) mg/dL Hemoglobin A1c (<=6.0) % Plasma Lactic Acid Madhu 4.5 H* 2.3 H* (0.7-2.0) mmol/L AST (14-36) U/L ALT (4-34) U/L Alkaline Phosphatase (38-126) U/L Total Protein (6.3-8.2) g/dL Albumin (3.5-5.0) g/dL Urine Appearance (Clear) Urine Protein (Negative) Urine Glucose (UA) (Negative) Urine Blood (Negative) Ur Leukocyte Esterase (Negative) Urine RBC (0-5) /hpf Urine WBC (0-5) /hpf Urine WBC Clumps (None) /hpf Ur Squamous Epith Cells (0-4) /hpf Urine Yeast (Budding) (None) /hpf 12/04/24 12/04/24 12/04/24 Range/Units 02:14 02:14 02:14 WBC 35.21 H (4.50-10.00) 10*3/uL MCHC (32.0-37.0) g/dL MPV 9.4 L (9.5-12.2) fL Immature Gran # 0.40 H (0.00-0.04) 10*3/uL Neutrophils # (Manual) 30.28 H (1.3-7.7) k/uL Monocytes # (Manual) 2.11 H (0-1.0) k/uL Chloride 111 H (98-107) mmol/L Carbon Dioxide 21 L (22-30) mmol/L BUN 44 H (7-17) mg/dL Creatinine (0.52-1.04) mg/dL Glucose 117 H (74-99) mg/dL POC Glucose (mg/dL) (70-110) mg/dL Hemoglobin A1c 7.6 H (<=6.0) % Plasma Lactic Acid Madhu (0.7-2.0) mmol/L AST (14-36) U/L ALT (4-34) U/L Alkaline Phosphatase (38-126) U/L Total Protein (6.3-8.2) g/dL Albumin (3.5-5.0) g/dL Urine Appearance (Clear) Urine Protein (Negative) Urine Glucose (UA) (Negative) Urine Blood (Negative) Ur Leukocyte Esterase (Negative) Urine RBC (0-5) /hpf Urine WBC (0-5) /hpf Urine WBC Clumps (None) /hpf Ur Squamous Epith Cells (0-4) /hpf Urine Yeast (Budding) (None) /hpf Assessment and Plan Assessment: Impression: Septic shock secondary to underlying urine tract infection. Acute hypotension secondary to above, currently on fluids and pressors and broad-spectrum antibiotics UTI, post Arguelles catheter insertion. Urine is cloudy, awaiting urine cultures and blood cultures. Acute leukocytosis secondary to above Acute lactic acidosis Acute kidney injury secondary to above Acute dehydration Fecal constipation/impaction Diabetes mellitus type 2 Hypothyroidism Hypertension Hyperlipidemia History of chronic depression Recommendation: Patient was seen in the ER, and I am recommending downgrading the patient to a medical bed. Continue antibiotics patient is presently on cefepime and vancomycin Awaiting cultures including blood and urine Patient is now off norepinephrine but still receiving fluids Continue GI DVT prophylaxis Continue sliding scale insulin Will continue to follow Prognosis is guarded CODE STATUS is DNR. Time with Patient: Less than 30
[2024-12-04] MEDS ORDERED: MAG HYDROX/AL HYDROX/SIMETH 30 ML CUP PO PRN (12:32)
[2024-12-04] MEDS ORDERED: guaiFENesin SYRUP 100MG/5ML 200 MG/10 ML CUP PO PRN (12:32)
[2024-12-04] MEDS ORDERED: LOPERAMIDE 2 MG CAP PO PRN (12:32)
[2024-12-04] MEDS ORDERED: NA PHOS,M-B/NA PHOS,DI-BA 133 ML ENEMA RECTAL PRN (12:32)
[2024-12-04] MEDS ORDERED: MAGNESIUM HYDROXIDE 2,400 MG/30 ML CUP PO PRN (12:32)
--- NOTE | 2024-12-04 14:15 | P.GSCN ---
History of Present Illness Consult date: 12/04/24 History of present illness: CHIEF COMPLAINT: GI bleed HISTORY OF PRESENT ILLNESS: The patient is a 69 year old female seen in the emergency room with white blood cell count on admission over 40,000 and being seen also for sepsis by infectious disease team. General surgery consultation placed for GI bleed. Limited history is obtained by the patient as she has depressed mental status baseline. Patient is on multiple medications over 20-30 medications. Per patient report, patient was on a [facility] and had vomiting yesterday with confusion and hypotension. Patient noted to possibly may have had hematemesis. PAST MEDICAL HISTORY: See list and reviewed PAST SURGICAL HISTORY: See list and reviewed MEDICATIONS: See list and reviewed ALLERGIES: See list and reviewed SOCIAL HISTORY: See list and reviewed FAMILY HISTORY: See list and reviewed REVIEW OF ORGAN SYSTEMS: Obtained per chart. CONSTITUTIONAL: No documented fevers since admission. EYES: Patient is blind. HEENT: No difficulties with hearing. No nosebleeds. No difficulty swallowing. RESPIRATORY: Denies pneumonia. Denies any troubles with breathing or dyspnea on exertion. CARDIOVASCULAR: Has hyperlipidemia. Has hypertension. GASTROINTESTINAL: Denies fatty food intolerance. Denies change in bowel habits and gas bloat. GENITOURINARY: Denies any blood in urine or increased urinary frequency. NEUROLOGICAL: Denies any numbness or tingling along the distal extremities. No seizure disorders or headaches. MUSCULOSKELETAL: Denies any back pain, stiffness or joint arthritis. SKIN: No current skin cancer. No rash. PSYCHIATRIC: Has generalized anxiety disorder. ENDOCRINE: Has diabetes type 2. Has thyroid disorders. HEME/LYMPHATIC: Denies any lumps and bumps around the neck. No recent deep venous thrombosis. 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 BREAST: Denies current breast lumps, pain or nipple discharge. PHYSICAL EXAM: VITALS: Reviewed CONSTITUTIONAL: Well developed and in no acute distress. EYES: Conjuctivae without sclera icterus. Extraocular movements grossly intact. HEAD, EARS, NOSE, THROAT: Moist buccal mucosa. Head is atraumatic, normocephalic. Hears conversational speech. No nasal drainage. NECK: Supple. No JV distention. No thyroidomegaly. RESPIRATORY: Non-labored respirations and equal bilateral excursions. No gross wheezes. CARDIOVASCULAR: Palpable 2+ radial pulses. ABDOMEN: Obese. Distended lower abdomen. No peritonitis. MUSCULOSKELETAL: No clubbing cyanosis or edema SKIN: Warm and well perfused with good skin turgor. NEUROLOGIC: Cranial nerves II through XII grossly intact. No focal or lateralizing signs. PSYCH: Alert and oriented to person. CLINCAL LABS: Reviewed IMAGING: Independently reviewed. CT of the abdomen pelvis demonstrate moderate stool burden throughout the entire sigmoid colon descending colon and fecaloma of the rectum. This is my independent or potation. RADIOLOGY: Report reviewed. Demonstrates moderate stool burden including kidney stones RECORDS: previous old records reviewed without any recent hospitalization at current institution in over 6 years. ASSESSMENT: 1. GI bleed with hematemesis. 2. Sepsis on admission. 3. Diabetes type 2 4. Hypertensive heart disease 5. Lactic acidosis with sepsis 6. Fecal impaction for fecaloma PLAN: 1. IV fluid hydration. 2. Patient has large fecal burden including impaction where milk of molasses enema advised 3. May benefit from upper endoscopy once medically stable ADVANCE DIRECTIVE: CODE STATUS in chart Thank you for this kind consultation. Dictation was produced using [employer] dictation software. Please excuse any grammatical, word or spelling errors. 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, 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 Past Surgical History: No Surgical Hx Reported Past Anesthesia/Blood Transfusion Reactions: No Reported Reaction Past Psychological History: Anxiety Smoking Status: Never smoker Past Alcohol Use History: None Reported Past Drug Use History: None Reported - Past Family History Brother(s) Additional Family Medical History / Comment(s): 2 brothers , 1 in [place], 1 in [place] Medications and Allergies Home Medications Medication Instructions Recorded Confirmed Type Aspirin [Adult Low Dose Aspirin EC] 81 mg PO DAILY 10/19/18 12/03/24 History Levothyroxine Sodium [Synthroid] 25 mcg PO DAILY 10/19/18 12/03/24 History Multivitamins, Thera [Multivitamin 1 tab PO DAILY 10/19/18 12/03/24 History (formulary)] Oxybutynin Xl [Ditropan Xl] 5 mg PO DAILY 10/19/18 12/03/24 History Simvastatin [Zocor] 20 mg PO HS 10/19/18 12/03/24 History sitaGLIPtin PHOS/metFORMIN HCL 1 tab PO DAILY 10/19/18 12/03/24 History [Janumet Xr 100-1,000 mg Tablet] ALPRAZolam [Xanax] 0.5 mg PO TID 12/03/24 12/03/24 History Acetaminophen Tab [Tylenol] 650 mg PO Q4H PRN 12/03/24 12/03/24 History Benzocaine Gum 20% 1 applic DENTAL TID PRN 12/03/24 12/03/24 History Chlorhexidine Gluconate [Peridex] 15 ml PO BID 12/03/24 12/03/24 History Cholecalciferol (Vitamin D3) 75 mcg PO DAILY 12/03/24 12/03/24 History [Vitamin D3 (3000 Iu)] Cranberry 425mg Capsule 425 mg PO BID 12/03/24 12/03/24 History DULoxetine HCL [Cymbalta] 60 mg PO DAILY 12/03/24 12/03/24 History Dextromethorphan HBr/Quinidine 1 cap PO DAILY 12/03/24 12/03/24 History [Nuedexta 20-10 mg Capsule] Empagliflozin [Jardiance] 10 mg PO DAILY 12/03/24 12/03/24 History Gabapentin [Neurontin] 300 mg PO BID 12/03/24 12/03/24 History HYDROcodone/APAP 10-325MG [[place] 1 tab PO Q4H 12/03/24 12/03/24 History 10-325] Ibuprofen [Motrin] 400 mg PO DAILY PRN 12/03/24 12/03/24 History Insulin Degludec [Tresiba] 20 units SQ BID 12/03/24 12/03/24 History Loperamide [Imodium] 2 mg PO DIRECTED PRN 12/03/24 12/03/24 History Loratadine [Claritin] 10 mg PO DAILY 12/03/24 12/03/24 History Mag Hydrox/Aluminum Hyd/Simeth 10 ml PO Q4H PRN 12/03/24 12/03/24 History [Mylanta Maximum Strength Liq] Magic Butt Paste 1 applic TOPICAL BID 12/03/24 12/03/24 History Magnesium Hydroxide [Milk of 7,200 mg PO Q48H PRN 12/03/24 12/03/24 History Magnesia Concentrate] Melatonin 5 mg PO HS 12/03/24 12/03/24 History Menthol [Biofreeze] 1 applic TOPICAL BID PRN 12/03/24 12/03/24 History Menthol [Biofreeze] 1 applic TOPICAL Q6H PRN 12/03/24 12/03/24 History Na Phos,M-B/Na Phos,Di-Ba [Fleet 133 ml RECTAL DAILY PRN 12/03/24 12/03/24 History Adult] OLANZapine [ZyPREXA] 5 mg PO HS 12/03/24 12/03/24 History Omeprazole 20 mg PO DAILY 12/03/24 12/03/24 History Psyllium Husk (with Sugar) 1 tbsp PO DAILY 12/03/24 12/03/24 History [Metamucil Powder] Sennosides/Docusate Sodium 1 tab PO BID 12/03/24 12/03/24 History [Senna-S 8.6-50 mg Tablet] Sodium Chloride [Saline Nasal Mist] 2 spray EA NOSTRIL Q8H PRN 12/03/24 12/03/24 History Valproic Acid Oral Soln [Depakene 250 mg PO Q6H 12/03/24 12/03/24 History Syrup] bisacodyL [Dulcolax] 10 mg RECTAL DAILY PRN 12/03/24 12/03/24 History buPROPion XL [Wellbutrin XL] 150 mg PO DAILY 12/03/24 12/03/24 History diphenhydrAMINE [Benadryl] 50 mg PO Q6H PRN 12/03/24 12/03/24 History guaiFENesin SYRUP 100MG/5ML 200 mg PO Q4H PRN 12/03/24 12/03/24 History [Robitussin] lisinopriL [Zestril] 5 mg PO DAILY 12/03/24 12/03/24 History polyethylene glycoL 3350 [Miralax] 17 gm PO DAILY 12/03/24 12/03/24 History rOPINIRole HCL [Requip] 1 mg PO HS 12/03/24 12/03/24 History Allergies Allergy/AdvReac Type Severity Reaction Status Date / Time sulfamethoxazole Allergy Unknown Verified 12/03/24 14:53 [From Bactrim] trimethoprim [From Bactrim] Allergy Unknown Verified 12/03/24 14:53 Surgical - Exam Vital Signs Temp Pulse Resp BP Pulse Ox 97 F L 77 22 77/63 92 L 12/03/24 09:46 12/03/24 09:46 12/03/24 09:46 12/03/24 09:46 12/03/24 09:46 Results - Labs 12/04/24 02:14 12/04/24 02:14 Abnormal Lab Results - Last 24 Hours (Table) 12/03/24 12/03/24 12/03/24 Range/Units 15:50 15:50 15:50 WBC 38.84 H (4.50-10.00) 10*3/uL MCHC 31.8 L (32.0-37.0) g/dL MPV (9.5-12.2) fL Immature Gran # 0.47 H (0.00-0.04) 10*3/uL Neutrophils # (Manual) 33.40 H (1.3-7.7) k/uL Monocytes # (Manual) 1.55 H (0-1.0) k/uL Chloride (98-107) mmol/L Carbon Dioxide 17 L (22-30) mmol/L BUN 43 H (7-17) mg/dL Creatinine 1.25 H (0.52-1.04) mg/dL Glucose 207 H (74-99) mg/dL POC Glucose (mg/dL) (70-110) mg/dL Hemoglobin A1c (<=6.0) % Plasma Lactic Acid Madhu 6.2 H* (0.7-2.0) mmol/L AST 51 H (14-36) U/L ALT 38 H (4-34) U/L Alkaline Phosphatase 382 H (38-126) U/L Total Protein 5.9 L (6.3-8.2) g/dL Albumin 2.9 L (3.5-5.0) g/dL 12/03/24 12/03/24 12/03/24 Range/Units 17:41 19:42 21:02 WBC (4.50-10.00) 10*3/uL MCHC (32.0-37.0) g/dL MPV (9.5-12.2) fL Immature Gran # (0.00-0.04) 10*3/uL Neutrophils # (Manual) (1.3-7.7) k/uL Monocytes # (Manual) (0-1.0) k/uL Chloride (98-107) mmol/L Carbon Dioxide (22-30) mmol/L BUN (7-17) mg/dL Creatinine (0.52-1.04) mg/dL Glucose (74-99) mg/dL POC Glucose (mg/dL) 164 H 156 H (70-110) mg/dL Hemoglobin A1c (<=6.0) % Plasma Lactic Acid Madhu 4.5 H* (0.7-2.0) mmol/L AST (14-36) U/L ALT (4-34) U/L Alkaline Phosphatase (38-126) U/L Total Protein (6.3-8.2) g/dL Albumin (3.5-5.0) g/dL 12/03/24 12/04/24 12/04/24 Range/Units 23:09 02:14 02:14 WBC (4.50-10.00) 10*3/uL MCHC (32.0-37.0) g/dL MPV (9.5-12.2) fL Immature Gran # (0.00-0.04) 10*3/uL Neutrophils # (Manual) (1.3-7.7) k/uL Monocytes # (Manual) (0-1.0) k/uL Chloride 111 H (98-107) mmol/L Carbon Dioxide 21 L (22-30) mmol/L BUN 44 H (7-17) mg/dL Creatinine (0.52-1.04) mg/dL Glucose 117 H (74-99) mg/dL POC Glucose (mg/dL) (70-110) mg/dL Hemoglobin A1c 7.6 H (<=6.0) % Plasma Lactic Acid Madhu 2.3 H* (0.7-2.0) mmol/L AST (14-36) U/L ALT (4-34) U/L Alkaline Phosphatase (38-126) U/L Total Protein (6.3-8.2) g/dL Albumin (3.5-5.0) g/dL 12/04/24 Range/Units 02:14 WBC 35.21 H (4.50-10.00) 10*3/uL MCHC (32.0-37.0) g/dL MPV 9.4 L (9.5-12.2) fL Immature Gran # 0.40 H (0.00-0.04) 10*3/uL Neutrophils # (Manual) 30.28 H (1.3-7.7) k/uL Monocytes # (Manual) 2.11 H (0-1.0) k/uL Chloride (98-107) mmol/L Carbon Dioxide (22-30) mmol/L BUN (7-17) mg/dL Creatinine (0.52-1.04) mg/dL Glucose (74-99) mg/dL POC Glucose (mg/dL) (70-110) mg/dL Hemoglobin A1c (<=6.0) % Plasma Lactic Acid Madhu (0.7-2.0) mmol/L AST (14-36) U/L ALT (4-34) U/L Alkaline Phosphatase (38-126) U/L Total Protein (6.3-8.2) g/dL Albumin (3.5-5.0) g/dL Diabetes panel 12/03/24 12/04/24 12/04/24 Range/Units 15:50 02:14 02:14 Sodium 140 144 (137-145) mmol/L Potassium 4.6 3.7 (3.5-5.1) mmol/L Chloride 103 111 H (98-107) mmol/L Carbon Dioxide 17 L 21 L (22-30) mmol/L BUN 43 H 44 H (7-17) mg/dL Creatinine 1.25 H 0.79 (0.52-1.04) mg/dL Glucose 207 H 117 H (74-99) mg/dL Hemoglobin A1c 7.6 H (<=6.0) % Calcium 8.9 8.8 (8.4-10.2) mg/dL AST 51 H (14-36) U/L ALT 38 H (4-34) U/L Alkaline Phosphatase 382 H (38-126) U/L Total Protein 5.9 L (6.3-8.2) g/dL Albumin 2.9 L (3.5-5.0) g/dL Calcium panel 12/03/24 12/04/24 Range/Units 15:50 02:14 Calcium 8.9 8.8 (8.4-10.2) mg/dL Albumin 2.9 L (3.5-5.0) g/dL Pituitary panel 12/03/24 12/04/24 Range/Units 15:50 02:14 Sodium 140 144 (137-145) mmol/L Potassium 4.6 3.7 (3.5-5.1) mmol/L Chloride 103 111 H (98-107) mmol/L Carbon Dioxide 17 L 21 L (22-30) mmol/L BUN 43 H 44 H (7-17) mg/dL Creatinine 1.25 H 0.79 (0.52-1.04) mg/dL Glucose 207 H 117 H (74-99) mg/dL Calcium 8.9 8.8 (8.4-10.2) mg/dL Adrenal panel 12/03/24 12/04/24 Range/Units 15:50 02:14 Sodium 140 144 (137-145) mmol/L Potassium 4.6 3.7 (3.5-5.1) mmol/L Chloride 103 111 H (98-107) mmol/L Carbon Dioxide 17 L 21 L (22-30) mmol/L BUN 43 H 44 H (7-17) mg/dL Creatinine 1.25 H 0.79 (0.52-1.04) mg/dL Glucose 207 H 117 H (74-99) mg/dL Calcium 8.9 8.8 (8.4-10.2) mg/dL Total Bilirubin 0.6 (0.2-1.3) mg/dL AST 51 H (14-36) U/L ALT 38 H (4-34) U/L Alkaline Phosphatase 382 H (38-126) U/L Total Protein 5.9 L (6.3-8.2) g/dL Albumin 2.9 L (3.5-5.0) g/dL
--- NOTE | 2024-12-04 15:06 | CT ---
EXAMINATION TYPE: CT brain wo con CT DLP: 1097.8 mGycm, Automated exposure control for dose reduction was used. DATE OF EXAM: 12/04/2024 2:55 PM COMPARISON: None. CLINICAL INDICATION:Female, 69 years old with history of stroke, STROKE TECHNIQUE: Brain: Multiple axial CT images of the brain were obtained without IV contrast. . Coronal and sagitta l reformats reviewed. FINDINGS: Brain: Extra-axial spaces: No abnormal extra-axial fluid collections. Ventricular system: Dilatation in proportion to cerebral atrophy. Cerebral parenchyma: Cerebral atrophy. No acute intraparenchymal hemorrhage or mass effect. The feldman -white junction is well differentiated. Scattered hypoattenuating areas are seen within the white mat ter. Cerebellum: Unremarkable. Mass effect: No evidence of midline shift. Intracranial vasculature: Atherosclerotic calcifications of the intracranial vessels. Soft tissues: Normal. Calvarium/osseous structures: No depressed skull fracture. Benign hyperostosis frontalis noted. Paranasal sinuses and mastoid air cells: The mastoid air cells are clear. Air-fluid levels within the bilateral maxillary sinuses and bilateral sphenoid sinuses. Moderate mucosal thickening of the ethmo id sinuses. Visualized orbits: Bilateral aphakia IMPRESSION: 1. No acute intracranial process. 2. Nonspecific white matter changes, likely secondary to chronic small vessel ischemic disease. 3. Paranasal sinus disease with air-fluid levels. Correlate for acute sinusitis. [facility], , 12/04/2024 3:04 PM
[2024-12-04] MEDS: VALPROIC ACID ORAL SOLN 250 MG/5 ML CUP PO SCH (15:39)
[2024-12-04 17:16] LABS: Glucose,Whole Blood 85 mg/dL (70-110)
[2024-12-04] MEDS ORDERED: NON FORMULARY DRUG (Magic Butt Paste 1 APPLIC) TOPICAL SCH (21:00)
[2024-12-04 21:11] LABS: Glucose,Whole Blood 72 mg/dL (70-110)
[2024-12-04] MEDS: SENNOSIDES-DOCUSATE SODIUM 1 EACH TAB PO SCH (21:19)
[2024-12-04] MEDS: GABAPENTIN 300 MG CAP PO SCH (23:02)
[2024-12-04] MEDS: ATORVASTATIN 10 MG TAB PO SCH (23:02)
--- NOTE | 2024-12-05 02:18 | PN ---
PROGRESS NOTE DATE OF SERVICE: 12/04/2024 SUBJECTIVE: This is a 69-year-old woman who was admitted with hypotension and possible UTI with septic shock, suspected GI bleed also. The patient is on antibiotics. White count is elevated at 35.21. Blood pressure has improved significantly. PAST MEDICAL HISTORY: Reviewed. REVIEW OF SYSTEMS: Could not be taken, because the patient is mildly confused today. CURRENT MEDICATIONS: Reviewed. PHYSICAL EXAMINATION: VITAL SIGNS: Pulse is 93, blood pressure is 120/70, respirations 18. HEENT: Conjunctivae normal. NECK: No JVD. CARDIOVASCULAR: S1, S2. RESPIRATIONS: Decreased breath sounds in the bases. ABDOMEN: Soft, nontender. LEGS: No edema. NERVOUS SYSTEM: Nonfocal. LABORATORY DATA: Reviewed. ASSESSMENT: 1. Hypotension with acute severe UTI with septic shock, present on admission. 2. Rule out GI bleed and coffee-ground emesis. 3. Increased WBC, leukemoid reaction. 4. Acute renal failure with acute tubular necrosis. 5. Diabetes mellitus, type 2. 6. Change in mental status, metabolic encephalopathy. 7. Hypertension. 8. Hyperlipidemia. 9. History of CRE and ESBL previously. 10.No code, no CPR, no vent. RECOMMENDATIONS: Continue current management. Otherwise, cultures are negative so far. Repeat labs. White count is slightly improved, but overall prognosis extremely guarded because of multiple complex medical issues. For recommendations, I would also recommend CT scan of the brainn admit for evaluation treatment of above-mentioned medical issues. MMODL / IJN: [id number] / MTDD
[2024-12-05] MEDS ORDERED: ZINC OXIDE PASTE (Z-GUARD) 1 APPLIC TOPICAL PRN (03:26)
[2024-12-05] MEDS: PANTOPRAZOLE 40 MG TABLET PO SCH (06:00)
[2024-12-05] MEDS: LEVOTHYROXINE 25 MCG TAB PO SCH (06:00)
[2024-12-05 06:22] LABS: Glucose,Whole Blood 69 mg/dL (70-110)
[2024-12-05] MEDS: DEXTROSE 50% SYRINGE 50 ML IVP PRN (06:24)
[2024-12-05 06:47] LABS: Glucose,Whole Blood 126 mg/dL (70-110)
[2024-12-05 07:14] LABS: African American GFR (CKD) >90 (>60 ml/min/1.73 sqM); Anion Gap 18 mmol/L; Blood Urea Nitrogen 45 mg/dL (7-17); Calcium 8.6 mg/dL (8.4-10.2); Carbon Dioxide 18 mmol/L (22-30); Chloride 114 mmol/L (98-107); Glucose 151 mg/dL (74-99); Non-African American GFR(CKD) >90 (>60 ml/min/1.73 sqM); Potassium 3.1 mmol/L (3.5-5.1); Sodium 150 mmol/L (137-145)
[2024-12-05 07:36] LABS: HCT 42.3 % (37.2-46.3); HGB 13.6 g/dL (12.0-15.0); MCH 29.6 pg (27.0-32.0); MCHC 32.2 g/dL (32.0-37.0); MCV 92.0 fL (80.0-97.0); Platelet Count 367 10*3/uL (140-440); RBC 4.60 10*6/uL (4.10-5.20); RDW 13.9 % (11.5-14.5); WBC 29.03 10*3/uL (4.50-10.00)
[2024-12-05 11:29] LABS: Glucose,Whole Blood 93 mg/dL (70-110)
[2024-12-05] MEDS: DAPAGLIFLOZIN PROPANEDIOL 5 MG TABLET PO SCH (11:35)
[2024-12-05] MEDS: CHOLECALCIFEROL 25 MCG (1000 IU) TABLET PO SCH (11:35)
[2024-12-05] MEDS: PSYLLIUM HUSK 100% 6 GM PACKET PO SCH (11:36)
[2024-12-05] MEDS: OXYBUTYNIN XL 5 MG TAB.ER.24 PO SCH (11:36)
[2024-12-05] MEDS: MULTIVITAMINS, THERA 1 EACH TAB PO SCH (11:36)
[2024-12-05 12:15] LABS: Lymphocytes # (M) 1.74 k/uL (1.0-4.8); Metamyelocytes # (M) 0.29 k/uL (0); Monocytes # (M) 0.58 k/uL (0-1.0); Neutrophils # (M) 26.42 k/uL (1.3-7.7); Neutrophils % (M) 91 %; Total Cells Counted 100
[2024-12-05] MEDS: DEXTROSE 5% IN WATER 1,000 ML with POTASSIUM CHLORIDE 40 MEQ IV SCH (13:37)
[2024-12-05] MEDS: DEXTROSE 5% IN WATER 1,000 ML IV SCH (13:46)
--- NOTE | 2024-12-05 15:08 | P.PN ---
Subjective Progress Note Date: 12/04/24 Principal diagnosis: Reason for follow-up is leukocytosis/infection Patient is a 69-year-old female with a past medical history significant for type 2 diabetes mellitus hypertension hyperlipidemia hypothyroidism and [facility] patient has [facility] concerning for altered mental status also found to be lethargic patient did have elevated white count positive UA prompted this consultation. On today's evaluation that is 12/04/2024, patient has been afebrile, patient is breathing comfortably and is currently on 2 L nasal oxygen patient responding to his name but did not provide any history no vomiting or diarrhea has been reported by the nursing staff. Patient did have a white count slightly down to 35.21 creatinine 0.79 cultures currently pending Objective - Vital Signs Vital signs: Vital Signs Temp 98.6 F 12/04/24 11:24 Pulse 98 12/04/24 13:48 Resp 18 12/04/24 12:08 BP 118/70 12/04/24 13:48 Pulse Ox 97 12/04/24 13:48 FiO2 Intake & Output 12/03/24 12/04/24 12/04/24 18:59 06:59 18:59 Intake Total 10.252 Output Total 527 943 0258 Balance -589.748 -800 -1000 Weight 72.575 kg Intake: Intake, IV Titration 10.252 Amount Norepinephrine 8 mg In 10.252 Sodium Chloride 0.9% 250 ml @ 0.03 MCG/KG/MIN 4. 213 mls/hr IV .Q24H [facility] Rx#:[id number] Output: Urine [phone] Uretheral (Arguelles) [phone] Other: # Bowel Movements 1 - Exam GENERAL DESCRIPTION: An elderly female lying in bed in no distress RESPIRATORY SYSTEM: Unlabored breathing , decreased breath sounds at bases HEART: S1 S2 regular rate and rhythm , ABDOMEN: Soft , no tenderness - Labs CBC & Chem 7: 12/05/24 06:33 12/05/24 06:33 Labs: Abnormal Lab Results - Last 24 Hours (Table) 12/03/24 12/03/24 12/03/24 Range/Units 15:50 15:50 15:50 WBC 38.84 H (4.50-10.00) 10*3/uL MCHC 31.8 L (32.0-37.0) g/dL MPV (9.5-12.2) fL Immature Gran # 0.47 H (0.00-0.04) 10*3/uL Neutrophils # (Manual) 33.40 H (1.3-7.7) k/uL Monocytes # (Manual) 1.55 H (0-1.0) k/uL Chloride (98-107) mmol/L Carbon Dioxide 17 L (22-30) mmol/L BUN 43 H (7-17) mg/dL Creatinine 1.25 H (0.52-1.04) mg/dL Glucose 207 H (74-99) mg/dL POC Glucose (mg/dL) (70-110) mg/dL Hemoglobin A1c (<=6.0) % Plasma Lactic Acid Madhu 6.2 H* (0.7-2.0) mmol/L AST 51 H (14-36) U/L ALT 38 H (4-34) U/L Alkaline Phosphatase 382 H (38-126) U/L Total Protein 5.9 L (6.3-8.2) g/dL Albumin 2.9 L (3.5-5.0) g/dL 12/03/24 12/03/24 12/03/24 Range/Units 17:41 19:42 21:02 WBC (4.50-10.00) 10*3/uL MCHC (32.0-37.0) g/dL MPV (9.5-12.2) fL Immature Gran # (0.00-0.04) 10*3/uL Neutrophils # (Manual) (1.3-7.7) k/uL Monocytes # (Manual) (0-1.0) k/uL Chloride (98-107) mmol/L Carbon Dioxide (22-30) mmol/L BUN (7-17) mg/dL Creatinine (0.52-1.04) mg/dL Glucose (74-99) mg/dL POC Glucose (mg/dL) 164 H 156 H (70-110) mg/dL Hemoglobin A1c (<=6.0) % Plasma Lactic Acid Madhu 4.5 H* (0.7-2.0) mmol/L AST (14-36) U/L ALT (4-34) U/L Alkaline Phosphatase (38-126) U/L Total Protein (6.3-8.2) g/dL Albumin (3.5-5.0) g/dL 12/03/24 12/04/24 12/04/24 Range/Units 23:09 02:14 02:14 WBC (4.50-10.00) 10*3/uL MCHC (32.0-37.0) g/dL MPV (9.5-12.2) fL Immature Gran # (0.00-0.04) 10*3/uL Neutrophils # (Manual) (1.3-7.7) k/uL Monocytes # (Manual) (0-1.0) k/uL Chloride 111 H (98-107) mmol/L Carbon Dioxide 21 L (22-30) mmol/L BUN 44 H (7-17) mg/dL Creatinine (0.52-1.04) mg/dL Glucose 117 H (74-99) mg/dL POC Glucose (mg/dL) (70-110) mg/dL Hemoglobin A1c 7.6 H (<=6.0) % Plasma Lactic Acid Madhu 2.3 H* (0.7-2.0) mmol/L AST (14-36) U/L ALT (4-34) U/L Alkaline Phosphatase (38-126) U/L Total Protein (6.3-8.2) g/dL Albumin (3.5-5.0) g/dL 12/04/24 Range/Units 02:14 WBC 35.21 H (4.50-10.00) 10*3/uL MCHC (32.0-37.0) g/dL MPV 9.4 L (9.5-12.2) fL Immature Gran # 0.40 H (0.00-0.04) 10*3/uL Neutrophils # (Manual) 30.28 H (1.3-7.7) k/uL Monocytes # (Manual) 2.11 H (0-1.0) k/uL Chloride (98-107) mmol/L Carbon Dioxide (22-30) mmol/L BUN (7-17) mg/dL Creatinine (0.52-1.04) mg/dL Glucose (74-99) mg/dL POC Glucose (mg/dL) (70-110) mg/dL Hemoglobin A1c (<=6.0) % Plasma Lactic Acid Madhu (0.7-2.0) mmol/L AST (14-36) U/L ALT (4-34) U/L Alkaline Phosphatase (38-126) U/L Total Protein (6.3-8.2) g/dL Albumin (3.5-5.0) g/dL Assessment and Plan (1) Sepsis Current Visit: Yes Status: Acute Code(s): A41.9 - SEPSIS, UNSPECIFIED ORGANISM SNOMED Code(s): 94106473 (2) UTI (urinary tract infection) Current Visit: Yes Status: Acute Code(s): N39.0 - URINARY TRACT INFECTION, SITE NOT SPECIFIED SNOMED Code(s): 54568364 Plan: 1patient presented to hospital with sepsis in this patient who did have hypotension requiring fluid and pressor support patient also have significant elevated white count elevated lactic acid medically for SIRS/sepsis source is likely urinary patient also have significant stool burden on the CT but did not mention evidence of colitis or diverticulitis and no need for further enteric gram-negative and less likely gram positive sylvester 2-patient currently being treated with cefepime the white count is trending down cultures are currently pending Dictation was produced using [employer] software. please excuse any grammatical, word or spelling errors. Time with Patient: Less than 30
--- NOTE | 2024-12-05 15:08 | P.PN ---
Subjective Progress Note Date: 12/05/24 Principal diagnosis: Reason for follow-up is leukocytosis/infection Patient is a 69-year-old female with a past medical history significant for type 2 diabetes mellitus hypertension hyperlipidemia hypothyroidism and [facility] patient has been sent [facility] concerning for altered mental status also found to be lethargic patient did have elevated white count positive UA prompted this consultation. On today's evaluation that is 12/05/2024, Patient is afebrile this morning patient is breathing comfortable 2 L nasal cannula oxygen in no distress patient remains to be less responsive did not provide any history no vomiting or diarrhea has been reported. Patient white count is down to 29.03, creatinine 0.66 urine is negative blood cultures are pending Objective - Vital Signs Vital signs: Vital Signs Temp 98.0 F 12/05/24 08:30 Pulse 91 12/05/24 12:00 Resp 18 12/05/24 12:00 BP 144/78 12/05/24 12:00 Pulse Ox 98 12/05/24 12:00 FiO2 Intake & Output 12/04/24 12/05/24 12/05/24 18:59 06:59 18:59 Intake Total 100 Output Total 1000 400 275 Balance -900 -400 -275 Weight 73.4 kg Intake: Intake, IV Titration 100 Amount Cefepime 2 gm In Sodium 100 Chloride 0.9% 100 ml @ 25 mls/hr IVPB Q8H REPLACED BY [facility] Rx#: [id number] Output: Urine 1000 400 275 Uretheral (Arguelles) 1000 Other: Voiding Method Indwelling Catheter Indwelling Catheter # Bowel Movements 1 0 - Exam GENERAL DESCRIPTION: An elderly female lying in bed in no distress RESPIRATORY SYSTEM: Unlabored breathing , decreased breath sounds at bases HEART: S1 S2 regular rate and rhythm , ABDOMEN: Soft , no tenderness - Labs CBC & Chem 7: 12/05/24 06:33 12/05/24 06:33 Labs: Abnormal Lab Results - Last 24 Hours (Table) 12/05/24 12/05/24 12/05/24 Range/Units 06:21 06:33 06:33 WBC 29.03 H (4.50-10.00) 10*3/uL MPV 9.2 L (9.5-12.2) fL Immature Gran # 0.72 H (0.00-0.04) 10*3/uL Neutrophils # (Manual) 26.42 H (1.3-7.7) k/uL Metamyelocytes # (Man) 0.29 H (0) k/uL Sodium 150 H (137-145) mmol/L Potassium 3.1 L (3.5-5.1) mmol/L Chloride 114 H (98-107) mmol/L Carbon Dioxide 18 L (22-30) mmol/L BUN 45 H (7-17) mg/dL Glucose 151 H (74-99) mg/dL POC Glucose (mg/dL) 69 L (70-110) mg/dL 12/05/24 Range/Units 06:46 WBC (4.50-10.00) 10*3/uL MPV (9.5-12.2) fL Immature Gran # (0.00-0.04) 10*3/uL Neutrophils # (Manual) (1.3-7.7) k/uL Metamyelocytes # (Man) (0) k/uL Sodium (137-145) mmol/L Potassium (3.5-5.1) mmol/L Chloride (98-107) mmol/L Carbon Dioxide (22-30) mmol/L BUN (7-17) mg/dL Glucose (74-99) mg/dL POC Glucose (mg/dL) 126 H (70-110) mg/dL Microbiology - Last 24 Hours (Table) 12/03/24 11:39 Urine Culture - Final Urine,Voided 12/03/24 10:25 Blood Culture - Preliminary Blood Assessment and Plan (1) Sepsis Current Visit: Yes Status: Acute Code(s): A41.9 - SEPSIS, UNSPECIFIED ORGANISM SNOMED Code(s): 81787373 (2) UTI (urinary tract infection) Current Visit: Yes Status: Acute Code(s): N39.0 - URINARY TRACT INFECTION, SITE NOT SPECIFIED SNOMED Code(s): 85682718 Plan: 1patient presented to hospital with sepsis in this patient who did have hypotension requiring fluid and pressor support patient also have significant elevated white count elevated lactic acid medically for SIRS/sepsis source is likely urinary patient also have significant stool burden on the CT but did not mention evidence of colitis or diverticulitis and no need for further enteric gram-negative and less likely gram positive sylvester 2-patient is afebrile white count is trending down culture has been negative so far still have significant mental status changes will benefit from neurology evaluation and possible consideration for LP 3will discontinue cefepime start the patient on Zosyn directed more towards abdominal to cover for both aerobes and anaerobes Dictation was produced using [employer] dictation software. please excuse any grammatical, word or spelling errors. Time with Patient: Less than 30
--- NOTE | 2024-12-05 15:17 | P.PN ---
Subjective Progress Note Date: 12/05/24 Principal diagnosis: Septic shock secondary to UTI Patient is a 69-year-old female patient, and [facility] resident, who presented to the emergency department because of altered mentation, lethargy, and dehydration. The patient is unable to volunteer any history. She is le gally blind. Apparently, the patient usually is alert and oriented x 3. The patient was seen in the emergency department immediately the patient was diagnosed having urine tract infection with secondary sepsis. The patient was found to have a white cell count of 42,000 with a hemoglobin of 15.3. The patient had a platelet count of 339. 81% neutrophilia. Normal coagulation profile. The patient was in acute kidney failure with a BUN of 42 and a creatinine of 1.6. Serum bicarb was at 16 with a gap of 21. Blood sugar was at 282. Lactic acid level was at 6. Mild transaminitis with vallecular phosphatase being elevated. UA was abnormal with large number of white cells. Arguelles catheter was inserted and urine output was minimal along with sediments. The patient was started on IV fluids. The patient was given a 20 L of normal saline. 1/3 L is to infuse. The patient will be started on norepinephrine for blood pressure support. The patient was started on a combination of cefepime and vancomycin. Meanwhile, the patient is currently on 2 L of oxygen by nasal cannula with pulse ox of 98%. No reported aspiration. Chest x-ray showed no acute abnormalities. CAT scan of the abdomen and pelvis was also noted and the patient was found to have marked amount of stool in the colon and the rectum and nonobstructive bilateral renal calculi. The patient was given an enema in the emergency department. At this point in time, the patient had a lactated Ringer at rate of 130 cc an hour. 1/3 L of normal saline was also infused. Due to diminished level of consciousness, the patient will be kept n.p.o. for now. Home medications were all reviewed. Patient was seen today while in the ER, patient is now off norepinephrine, her initial presentation is a presentation of septic shock with urinary tract infection associate with hypotension, she has acute leukocytosis with acute la ctic acidosis and acute kidney injury secondary to dehydration in addition she has fecal constipation/impaction with type 2 diabetes hypothyroidism hypertension and chronic depression. Patient is not a great historian, but she is hemodynamically stable, she has altered mental status and lethargy, but does not seem to be in any form of respiratory distress. Hence I am planning to downgrade the patient to a medical floor instead of going to ICU. Labs were reviewed today she has leukocytosis with WBC count of 35.2 hemoglobin 14.9 electrolytes are normal renal profile showed a BUN of 44 creatinine 0.79 lactic acid yesterday was 2.3 and it is 1.8 today. No microbiology available at this point. But we suspect that the patient is septic from urinary tract infection. Patient was seen today on 12/05/2024, patient is hemodynamically stable, comfortable, not in any distress, patient does have some component of encephalopathy and she is lethargic. But does not seem to be in respiratory distress. On 2 L nasal cannula, patient could not provide any history or any information. Her urine and blood cultures are negative so far. Continues to have leukocytosis with WBC count of 29 hemoglobin 13.6 sodium is up to 150 hence the patient will be given D5W as IV fluid running at 75 cc/h. Her presentation was a presentation of sepsis, patient had hypotension, she required fluid boluses and she required pressors she also had leukocytosis, we felt that her primary source is urine however her urine so far seems to be negative. Patient had no symptoms to suggest colitis initially she was placed on cefepime however this was changed today by infectious disease to Zosyn. Mostly to cover abdom inal coverage for aerobes and anaerobes. Objective - Vital Signs Vital signs: Vital Signs Temp 98.0 F 12/05/24 08:30 Pulse 91 12/05/24 12:00 Resp 18 12/05/24 12:00 BP 144/78 12/05/24 12:00 Pulse Ox 98 12/05/24 12:00 FiO2 Intake & Output 12/04/24 12/05/24 12/05/24 18:59 06:59 18:59 Intake Total 100 Output Total 1000 400 275 Balance -900 -400 -275 Weight 73.4 kg Intake: Intake, IV Titration 100 Amount Cefepime 2 gm In Sodium 100 Chloride 0.9% 100 ml @ 25 mls/hr IVPB Q8H [facility] Rx#: [id number] Output: Urine 1000 400 275 Uretheral (Arguelles) 1000 Other: Voiding Method Indwelling Catheter Indwelling Catheter # Bowel Movements 1 0 - Exam GENERAL DESCRIPTION: Revealed a 69-year-old female in no distress, confused. HEENT: PERRLA, EOMI, nonicteric, patient is pale. No neck masses no JVD no stridor. NECK: Supple, no neck masses no JVD. LUNGS: Diminished breath sound bilaterally no crackles rhonchi or wheezes HEART: S1, S2, regular rate and rhythm. No loud murmur ABDOMEN: Soft obese nontender no rebound no guarding. EXTREMITIES: No clubbing edema or cyanosis SKIN: No rashes NEUROLOGICAL: The patient is confused - Labs CBC & Chem 7: 12/05/24 06:33 12/05/24 06:33 Labs: Abnormal Lab Results - Last 24 Hours (Table) 12/05/24 12/05/24 12/05/24 Range/Units 06:21 06:33 06:33 WBC 29.03 H (4.50-10.00) 10*3/uL MPV 9.2 L (9.5-12.2) fL Immature Gran # 0.72 H (0.00-0.04) 10*3/uL Neutrophils # (Manual) 26.42 H (1.3-7.7) k/uL Metamyelocytes # (Man) 0.29 H (0) k/uL Sodium 150 H (137-145) mmol/L Potassium 3.1 L (3.5-5.1) mmol/L Chloride 114 H (98-107) mmol/L Carbon Dioxide 18 L (22-30) mmol/L BUN 45 H (7-17) mg/dL Glucose 151 H (74-99) mg/dL POC Glucose (mg/dL) 69 L (70-110) mg/dL 12/05/24 Range/Units 06:46 WBC (4.50-10.00) 10*3/uL MPV (9.5-12.2) fL Immature Gran # (0.00-0.04) 10*3/uL Neutrophils # (Manual) (1.3-7.7) k/uL Metamyelocytes # (Man) (0) k/uL Sodium (137-145) mmol/L Potassium (3.5-5.1) mmol/L Chloride (98-107) mmol/L Carbon Dioxide (22-30) mmol/L BUN (7-17) mg/dL Glucose (74-99) mg/dL POC Glucose (mg/dL) 126 H (70-110) mg/dL Microbiology - Last 24 Hours (Table) 12/03/24 11:39 Urine Culture - Final Urine,Voided 12/03/24 10:25 Blood Culture - Preliminary Blood Assessment and Plan Assessment: Impression: Septic shock/sepsis primary source is unknown at this point hypotension secondary to above, currently on fluids and pressors and broad- spectrum antibiotics Considering the patient has a negative urine cultures so far, her primary source of infection may be abdominal rather than urinary in nature. Acute leukocytosis secondary to above Acute lactic acidosis Acute kidney injury secondary to above Acute dehydration Fecal constipation/impaction Diabetes mellitus type 2 Hypothyroidism Hypertension Hyperlipidemia History of chronic depression Recommendation: continue Zosyn Continue IV fluids changed to D5W since the patient has hypernatremia Continue GI DVT prophylaxis Continue sliding scale insulin Will continue to follow Prognosis is guarded CODE STATUS is DNR. Time with Patient: Less than 30
[2024-12-05] MEDS: LORazepam 1 MG/0.5 ML VIAL IV STA (16:03)
[2024-12-05] MEDS: levETIRAcetam IV 500 MG/5 ML VIAL IVP STA (16:12)
--- NOTE | 2024-12-05 17:11 | P.CNNES ---
<Suzette Serna - Last Filed: 12/05/24 17:05> History of Present Illness Consult date: 12/05/24 Requesting physician: Leticia Downs Reason for Consult: R/o CVA History of Present Illness: Patient is a 69 year old female with blindness at baseline, diabetes, hyperlipidemia, hypertension, hypothyroidism, who was sent to the hospital from [facility] for evaluation of altered mental status and hypotension. Patient seen today in neurological consultation. Patient usually alert oriented x 3. But at the time of this interview patient cannot provide any history. Patient has a rightward gaze and her white count is 29.03 (WBC 42 on admission). She is afebrile.Lactic acid is 6. UA showing signs of infection but Urine culture was n egative. Blood culture also negative till date. Blood pressure today is 144/78. Brain CT shows no acute intracranial process and nonspecific white matter changes likely secondary to chronic small vessel ischemic disease and paranasal sinus disease with air fluid levels. 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, ESBL Date of last positivie culture/infection: 10/06/20 ESBL E.coli MDRO Source:: URINE Past Surgical History: No Surgical Hx Reported Past Anesthesia/Blood Transfusion Reactions: No Reported Reaction Past Psychological History: Anxiety Smoking Status: Never smoker Past Alcohol Use History: None Reported Past Drug Use History: None Reported - Past Family History Brother(s) Additional Family Medical History / Comment(s): 2 brothers , 1 in [place], 1 in [place] Medications and Allergies Home Medications Medication Instructions Recorded Confirmed Type Aspirin [Adult Low Dose Aspirin EC] 81 mg PO DAILY 10/19/18 12/03/24 History Levothyroxine Sodium [Synthroid] 25 mcg PO DAILY 10/19/18 12/03/24 History Multivitamins, Thera [Multivitamin 1 tab PO DAILY 10/19/18 12/03/24 History (formulary)] Oxybutynin Xl [Ditropan Xl] 5 mg PO DAILY 10/19/18 12/03/24 History Simvastatin [Zocor] 20 mg PO HS 10/19/18 12/03/24 History sitaGLIPtin PHOS/metFORMIN HCL 1 tab PO DAILY 10/19/18 12/03/24 History [Janumet Xr 100-1,000 mg Tablet] ALPRAZolam [Xanax] 0.5 mg PO TID 12/03/24 12/03/24 History Acetaminophen Tab [Tylenol] 650 mg PO Q4H PRN 12/03/24 12/03/24 History Benzocaine Gum 20% 1 applic DENTAL TID PRN 12/03/24 12/03/24 History Chlorhexidine Gluconate [Peridex] 15 ml PO BID 12/03/24 12/03/24 History Cholecalciferol (Vitamin D3) 75 mcg PO DAILY 12/03/24 12/03/24 History [Vitamin D3 (3000 Iu)] Cranberry 425mg Capsule 425 mg PO BID 12/03/24 12/03/24 History DULoxetine HCL [Cymbalta] 60 mg PO DAILY 12/03/24 12/03/24 History Dextromethorphan HBr/Quinidine 1 cap PO DAILY 12/03/24 12/03/24 History [Nuedexta 20-10 mg Capsule] Empagliflozin [Jardiance] 10 mg PO DAILY 12/03/24 12/03/24 History Gabapentin [Neurontin] 300 mg PO BID 12/03/24 12/03/24 History HYDROcodone/APAP 10-325MG [[place] 1 tab PO Q4H 12/03/24 12/03/24 History 10-325] Ibuprofen [Motrin] 400 mg PO DAILY PRN 12/03/24 12/03/24 History Insulin Degludec [Tresiba] 20 units SQ BID 12/03/24 12/03/24 History Loperamide [Imodium] 2 mg PO DIRECTED PRN 12/03/24 12/03/24 History Loratadine [Claritin] 10 mg PO DAILY 12/03/24 12/03/24 History Mag Hydrox/Aluminum Hyd/Simeth 10 ml PO Q4H PRN 12/03/24 12/03/24 History [Mylanta Maximum Strength Liq] Magic Butt Paste 1 applic TOPICAL BID 12/03/24 12/03/24 History Magnesium Hydroxide [Milk of 7,200 mg PO Q48H PRN 12/03/24 12/03/24 History Magnesia Concentrate] Melatonin 5 mg PO HS 12/03/24 12/03/24 History Menthol [Biofreeze] 1 applic TOPICAL BID PRN 12/03/24 12/03/24 History Menthol [Biofreeze] 1 applic TOPICAL Q6H PRN 12/03/24 12/03/24 History Na Phos,M-B/Na Phos,Di-Ba [Fleet 133 ml RECTAL DAILY PRN 12/03/24 12/03/24 History Adult] OLANZapine [ZyPREXA] 5 mg PO HS 12/03/24 12/03/24 History Omeprazole 20 mg PO DAILY 12/03/24 12/03/24 History Psyllium Husk (with Sugar) 1 tbsp PO DAILY 12/03/24 12/03/24 History [Metamucil Powder] Sennosides/Docusate Sodium 1 tab PO BID 12/03/24 12/03/24 History [Senna-S 8.6-50 mg Tablet] Sodium Chloride [Saline Nasal Mist] 2 spray EA NOSTRIL Q8H PRN 12/03/24 12/03/24 History Valproic Acid Oral Soln [Depakene 250 mg PO Q6H 12/03/24 12/03/24 History Syrup] bisacodyL [Dulcolax] 10 mg RECTAL DAILY PRN 12/03/24 12/03/24 History buPROPion XL [Wellbutrin XL] 150 mg PO DAILY 12/03/24 12/03/24 History diphenhydrAMINE [Benadryl] 50 mg PO Q6H PRN 12/03/24 12/03/24 History guaiFENesin SYRUP 100MG/5ML 200 mg PO Q4H PRN 12/03/24 12/03/24 History [Robitussin] lisinopriL [Zestril] 5 mg PO DAILY 12/03/24 12/03/24 History polyethylene glycoL 3350 [Miralax] 17 gm PO DAILY 12/03/24 12/03/24 History rOPINIRole HCL [Requip] 1 mg PO HS 12/03/24 12/03/24 History Allergies Allergy/AdvReac Type Severity Reaction Status Date / Time sulfamethoxazole Allergy Unknown Verified 12/03/24 14:53 [From Bactrim] trimethoprim [From Bactrim] Allergy Unknown Verified 12/03/24 14:53 Physical Examination - Vital Signs Vital Signs: Vital Signs Temp Pulse Pulse Resp BP BP Pulse Ox 12/05/24 12:00 91 18 144/78 98 12/05/24 08:30 98.0 F 91 22 150/77 98 12/05/24 04:30 97.4 F L 95 26 H 142/74 99 12/05/24 01:45 22 12/05/24 00:55 97.5 F L 99 22 121/75 93 L 12/05/24 00:25 99.0 F 99 27 H 115/66 97 12/04/24 20:00 98.9 F 99 28 H 123/72 97 12/04/24 18:45 99 135/56 80 L Intake and Output 12/05/24 12/05/24 12/05/24 06:59 14:59 22:59 Output Total 400 275 Balance -400 -275 Output: Urine 400 275 Other: Voiding Method Indwelling Catheter Indwelling Catheter # Bowel Movements 0 Weight 73.4 kg General: no distress, lying in bed comfortably On general examination, there is no carotid bruit or murmur, S1-S2 audible. Chest is clear on consultation. Abdomen is soft nontender. No peripheral edema. Neuro: Awake, Alert, does not respond to questions Rightward gaze deviation, stiff and rigid neck, Face is symmetric Unable to test muscle strength Deep tendon reflexes are symmetric 1 at the biceps, brachioradialis, knees and plantars indeterminate Sensory to touch is equal Results - Laboratory Findings CBC and BMP: 12/05/24 06:33 12/05/24 06:33 Abnormal Lab Findings: Abnormal Labs 12/03/24 12/03/24 12/03/24 10:18 10:25 10:25 WBC 42.63 H Hgb 15.3 H Hct 47.0 H MCHC MPV 9.2 L Immature Gran # 0.81 H Neutrophils # (Manual) 37.08 H Monocytes # (Manual) 1.71 H Metamyelocytes # (Man) Sodium Potassium Chloride Carbon Dioxide 16 L BUN 42 H Creatinine 1.60 H Glucose 282 H POC Glucose (mg/dL) 257 H Hemoglobin A1c Plasma Lactic Acid Madhu Magnesium 3.2 H AST 48 H ALT 44 H Alkaline Phosphatase 413 H Total Protein Albumin Urine Appearance Urine Protein Urine Glucose (UA) Urine Blood Ur Leukocyte Esterase Urine RBC Urine WBC Urine WBC Clumps Ur Squamous Epith Cells Urine Yeast (Budding) 0612/03/24 12/03/24 10:25 11:39 15:50 WBC Hgb Hct MCHC MPV Immature Gran # Neutrophils # (Manual) Monocytes # (Manual) Metamyelocytes # (Man) Sodium Potassium Chloride Carbon Dioxide BUN Creatinine Glucose POC Glucose (mg/dL) Hemoglobin A1c Plasma Lactic Acid Madhu 6.0 H* 6.2 H* Magnesium AST ALT Alkaline Phosphatase Total Protein Albumin Urine Appearance Turbid H Urine Protein 2+ H Urine Glucose (UA) 4+ H Urine Blood Large H Ur Leukocyte Esterase Large H Urine RBC >182 H Urine WBC >182 H Urine WBC Clumps Many H Ur Squamous Epith Cells 24 H Urine Yeast (Budding) Many H 12/03/24 12/03/24 12/03/24 15:50 15:50 17:41 WBC 38.84 H Hgb Hct MCHC 31.8 L MPV Immature Gran # 0.47 H Neutrophils # (Manual) 33.40 H Monocytes # (Manual) 1.55 H Metamyelocytes # (Man) Sodium Potassium Chloride Carbon Dioxide 17 L BUN 43 H Creatinine 1.25 H Glucose 207 H POC Glucose (mg/dL) 164 H Hemoglobin A1c Plasma Lactic Acid Madhu Magnesium AST 51 H ALT 38 H Alkaline Phosphatase 382 H Total Protein 5.9 L Albumin 2.9 L Urine Appearance Urine Protein Urine Glucose (UA) Urine Blood Ur Leukocyte Esterase Urine RBC Urine WBC Urine WBC Clumps Ur Squamous Epith Cells Urine Yeast (Budding) 12/03/24 12/03/24 12/03/24 19:42 21:02 23:09 WBC Hgb Hct MCHC MPV Immature Gran # Neutrophils # (Manual) Monocytes # (Manual) Metamyelocytes # (Man) Sodium Potassium Chloride Carbon Dioxide BUN Creatinine Glucose POC Glucose (mg/dL) 156 H Hemoglobin A1c Plasma Lactic Acid Madhu 4.5 H* 2.3 H* Magnesium AST ALT Alkaline Phosphatase Total Protein Albumin Urine Appearance Urine Protein Urine Glucose (UA) Urine Blood Ur Leukocyte Esterase Urine RBC Urine WBC Urine WBC Clumps Ur Squamous Epith Cells Urine Yeast (Budding) 12/04/24 12/04/24 12/04/24 02:14 02:14 02:14 WBC 35.21 H Hgb Hct MCHC MPV 9.4 L Immature Gran # 0.40 H Neutrophils # (Manual) 30.28 H Monocytes # (Manual) 2.11 H Metamyelocytes # (Man) Sodium Potassium Chloride 111 H Carbon Dioxide 21 L BUN 44 H Creatinine Glucose 117 H POC Glucose (mg/dL) Hemoglobin A1c 7.6 H Plasma Lactic Acid Madhu Magnesium AST ALT Alkaline Phosphatase Total Protein Albumin Urine Appearance Urine Protein Urine Glucose (UA) Urine Blood Ur Leukocyte Esterase Urine RBC Urine WBC Urine WBC Clumps Ur Squamous Epith Cells Urine Yeast (Budding) 12/05/24 12/05/24 12/05/24 06:21 06:33 06:33 WBC 29.03 H Hgb Hct MCHC MPV 9.2 L Immature Gran # 0.72 H Neutrophils # (Manual) 26.42 H Monocytes # (Manual) Metamyelocytes # (Man) 0.29 H Sodium 150 H Potassium 3.1 L Chloride 114 H Carbon Dioxide 18 L BUN 45 H Creatinine Glucose 151 H POC Glucose (mg/dL) 69 L Hemoglobin A1c Plasma Lactic Acid Madhu Magnesium AST ALT Alkaline Phosphatase Total Protein Albumin Urine Appearance Urine Protein Urine Glucose (UA) Urine Blood Ur Leukocyte Esterase Urine RBC Urine WBC Urine WBC Clumps Ur Squamous Epith Cells Urine Yeast (Budding) 12/05/24 06:46 WBC Hgb Hct MCHC MPV Immature Gran # Neutrophils # (Manual) Monocytes # (Manual) Metamyelocytes # (Man) Sodium Potassium Chloride Carbon Dioxide BUN Creatinine Glucose POC Glucose (mg/dL) 126 H Hemoglobin A1c Plasma Lactic Acid Madhu Magnesium AST ALT Alkaline Phosphatase Total Protein Albumin Urine Appearance Urine Protein Urine Glucose (UA) Urine Blood Ur Leukocyte Esterase Urine RBC Urine WBC Urine WBC Clumps Ur Squamous Epith Cells Urine Yeast (Budding) Assessment and Plan Assessment: Altered mental status, rightward gaze deviation Hypotensive on admission, now improved Leukocytosis, improving. Unknown etiology Signs of UTI on UA, urine culture negative, blood culture negative till date Hypertension Hyperlipidemia Diabetes mellitus Plan: Brain CT shows no acute intracranial process and nonspecific white matter changes likely secondary to chronic small vessel ischemic disease and paranasal sinus disease with air fluid levels. Ativan 1mg IV once, rightward gaze deviation improved after Ativan admnistration Keppra 1 gm IV once, then start Keppra 500 mg Q12HR Obtain EEG to rule out seizures Obtain MRI brain w/wo contrast Obtain lumbar puncture and CSF studies, to rule out meningoencephalitis Intially seemed like Urosepsis, talked to ID who has now ruled it out. Defer antibiotic to ID Dictation was produced using sw[employer]r dictation software. please excuse any grammatical, word or spelling errors. Suzette Serna MD PGY-2 IM <Anshu Torres - Last Filed: 12/05/24 18:36> Physical Examination - Vital Signs Vital Signs: Vital Signs Temp Pulse Pulse Resp BP BP Pulse Ox 12/05/24 14:00 91 18 12/05/24 12:00 91 18 144/78 98 12/05/24 08:30 98.0 F 91 22 150/77 98 12/05/24 04:30 97.4 F L 95 26 H 142/74 99 12/05/24 01:45 22 12/05/24 00:55 97.5 F L 99 22 121/75 93 L 12/05/24 00:25 99.0 F 99 27 H 115/66 97 12/04/24 20:00 98.9 F 99 28 H 123/72 97 12/04/24 18:45 99 135/56 80 L Intake and Output 12/05/24 12/05/24 12/05/24 06:59 14:59 22:59 Output Total 400 275 400 Balance -400 -275 -400 Output: Urine 400 275 400 Other: Voiding Method Indwelling Catheter Indwelling Catheter # Bowel Movements 0 Weight 73.4 kg Results - Laboratory Findings CBC and BMP: 12/05/24 06:33 12/05/24 06:33 Abnormal Lab Findings: Abnormal Labs 12/03/24 12/03/24 12/03/24 10:18 10:25 10:25 WBC 42.63 H Hgb 15.3 H Hct 47.0 H MCHC MPV 9.2 L Immature Gran # 0.81 H Neutrophils # (Manual) 37.08 H Monocytes # (Manual) 1.71 H Metamyelocytes # (Man) Sodium Potassium Chloride Carbon Dioxide 16 L BUN 42 H Creatinine 1.60 H Glucose 282 H POC Glucose (mg/dL) 257 H Hemoglobin A1c Plasma Lactic Acid Madhu Magnesium 3.2 H AST 48 H ALT 44 H Alkaline Phosphatase 413 H Total Protein Albumin Urine Appearance Urine Protein Urine Glucose (UA) Urine Blood Ur Leukocyte Esterase Urine RBC Urine WBC Urine WBC Clumps Ur Squamous Epith Cells Urine Yeast (Budding) CSF Glucose CSF Total Protein 12/03/24 12/03/24 12/03/24 10:25 11:39 15:50 WBC Hgb Hct MCHC MPV Immature Gran # Neutrophils # (Manual) Monocytes # (Manual) Metamyelocytes # (Man) Sodium Potassium Chloride Carbon Dioxide BUN Creatinine Glucose POC Glucose (mg/dL) Hemoglobin A1c Plasma Lactic Acid Madhu 6.0 H* 6.2 H* Magnesium AST ALT Alkaline Phosphatase Total Protein Albumin Urine Appearance Turbid H Urine Protein 2+ H Urine Glucose (UA) 4+ H Urine Blood Large H Ur Leukocyte Esterase Large H Urine RBC >182 H Urine WBC >182 H Urine WBC Clumps Many H Ur Squamous Epith Cells 24 H Urine Yeast (Budding) Many H CSF Glucose CSF Total Protein 12/03/24 12/03/24 12/03/24 15:50 15:50 17:41 WBC 38.84 H Hgb Hct MCHC 31.8 L MPV Immature Gran # 0.47 H Neutrophils # (Manual) 33.40 H Monocytes # (Manual) 1.55 H Metamyelocytes # (Man) Sodium Potassium Chloride Carbon Dioxide 17 L BUN 43 H Creatinine 1.25 H Glucose 207 H POC Glucose (mg/dL) 164 H Hemoglobin A1c Plasma Lactic Acid Madhu Magnesium AST 51 H ALT 38 H Alkaline Phosphatase 382 H Total Protein 5.9 L Albumin 2.9 L Urine Appearance Urine Protein Urine Glucose (UA) Urine Blood Ur Leukocyte Esterase Urine RBC Urine WBC Urine WBC Clumps Ur Squamous Epith Cells Urine Yeast (Budding) CSF Glucose CSF Total Protein 12/03/24 12/03/24 12/03/24 19:42 21:02 23:09 WBC Hgb Hct MCHC MPV Immature Gran # Neutrophils # (Manual) Monocytes # (Manual) Metamyelocytes # (Man) Sodium Potassium Chloride Carbon Dioxide BUN Creatinine Glucose POC Glucose (mg/dL) 156 H Hemoglobin A1c Plasma Lactic Acid Madhu 4.5 H* 2.3 H* Magnesium AST ALT Alkaline Phosphatase Total Protein Albumin Urine Appearance Urine Protein Urine Glucose (UA) Urine Blood Ur Leukocyte Esterase Urine RBC Urine WBC Urine WBC Clumps Ur Squamous Epith Cells Urine Yeast (Budding) CSF Glucose CSF Total Protein 12/04/24 12/04/24 12/04/24 02:14 02:14 02:14 WBC 35.21 H Hgb Hct MCHC MPV 9.4 L Immature Gran # 0.40 H Neutrophils # (Manual) 30.28 H Monocytes # (Manual) 2.11 H Metamyelocytes # (Man) Sodium Potassium Chloride 111 H Carbon Dioxide 21 L BUN 44 H Creatinine Glucose 117 H POC Glucose (mg/dL) Hemoglobin A1c 7.6 H Plasma Lactic Acid Madhu Magnesium AST ALT Alkaline Phosphatase Total Protein Albumin Urine Appearance Urine Protein Urine Glucose (UA) Urine Blood Ur Leukocyte Esterase Urine RBC Urine WBC Urine WBC Clumps Ur Squamous Epith Cells Urine Yeast (Budding) CSF Glucose CSF Total Protein 12/05/24 12/05/24 12/05/24 06:21 06:33 06:33 WBC 29.03 H Hgb Hct MCHC MPV 9.2 L Immature Gran # 0.72 H Neutrophils # (Manual) 26.42 H Monocytes # (Manual) Metamyelocytes # (Man) 0.29 H Sodium 150 H Potassium 3.1 L Chloride 114 H Carbon Dioxide 18 L BUN 45 H Creatinine Glucose 151 H POC Glucose (mg/dL) 69 L Hemoglobin A1c Plasma Lactic Acid Madhu Magnesium AST ALT Alkaline Phosphatase Total Protein Albumin Urine Appearance Urine Protein Urine Glucose (UA) Urine Blood Ur Leukocyte Esterase Urine RBC Urine WBC Urine WBC Clumps Ur Squamous Epith Cells Urine Yeast (Budding) CSF Glucose CSF Total Protein 12/05/24 12/05/24 06:46 17:00 WBC Hgb Hct MCHC MPV Immature Gran # Neutrophils # (Manual) Monocytes # (Manual) Metamyelocytes # (Man) Sodium Potassium Chloride Carbon Dioxide BUN Creatinine Glucose POC Glucose (mg/dL) 126 H Hemoglobin A1c Plasma Lactic Acid Madhu Magnesium AST ALT Alkaline Phosphatase Total Protein Albumin Urine Appearance Urine Protein Urine Glucose (UA) Urine Blood Ur Leukocyte Esterase Urine RBC Urine WBC Urine WBC Clumps Ur Squamous Epith Cells Urine Yeast (Budding) CSF Glucose 71 H CSF Total Protein 86 H Assessment and Plan Assessment: Acute encephalopathy with septic picture with right gaze deviation. The right gaze deviation improved with 1mg of Atian. Rule out seizure vs due to septic encephalopathy. Septic encephalopathy of unknown exact source. Patient is has leukocytosis with hypotension but no is afebrile. Rule out underlying meningoencephalitis. Plan: I personally took the history with the resident and examined the patient. I spoke with the I.D. attending and he was in agreement with lumbar puncture. Regarding the modification of antibiotic and consideration of antiviral will defer management to I.D. team. CSF was completed and pending results. I agree with the resident's assessment and plan. Anshu Torres M.D. Time with Patient: Greater than 30
--- NOTE | 2024-12-05 17:17 | P.PCN ---
Date of Procedure: 12/05/24 Preoperative Diagnosis: Altered mental status Postoperative Diagnosis: Altered mental status Procedure(s) Performed: Lumbar puncture Anesthesia: local Description of Procedure: INDICATION: Altered mental status, Neck stiffness PROCEDURE CHILD CARE NURSE: Suzette Serna MD PGY-2 IM ATTENDING PHYSICIAN: Anshu Torres MD In Attendance (Y/N): Yes CONSENT: During the informed consent discussion regarding the procedure, or treatment, I explained the following to the patient/designee: a. Nature of the procedure or treatment and who will perform the procedure or treatment. b. Necessity for procedure and the possible benefits. c. Risks and complications (most common and serious). d. Alternative treatments and the risks, benefits and side effects of each (including no treatment). e. Likelihood of the patient achieving his/her goals without this procedure and surgery treatment. f. Problems that might occur during the recuperation. g. Conflicts of interest, if any PROCEDURE SUMMARY: A time-out was performed. My hands were washed immediately prior to the procedure. I wore a mask, sterile gown and sterile gloves throughout the procedure. The patient was placed in the lateral recumbent position with help from the nursing staff. The area was cleansed and draped in usual sterile fashion using betadine scrub. Anesthesia was achieved with 1% lidocaine. A 20- gauge 3.5-inch spinal needle was placed in the L3-L4 lumbar interspace. On the 3rd attempt, clear straw colored cerebral spinal fluid was obtained. CSF was collected into 4 tubes. These were sent for the usual tests. A sterile bandaid was placed over the puncture site. The patient had no immediate complications and tolerated the procedure well. Estimated blood loss was minimal.
[2024-12-05] MEDS: PIPERACILLIN-TAZOBACTAM 3.375 GM in SODIUM CHLORIDE 0.9% 100 ML IVPB SCH (18:00)
[2024-12-05 18:08] LABS: Glucose,CSF 71 mg/dL (40-70)
[2024-12-05 18:45] LABS: CSF Tube Volume 3.0; Nucleated Cells, CSF 0 u/L (0-5); Red Blood Cell,CSF 4 u/L (0-10)
[2024-12-05 18:46] LABS: Glucose,Whole Blood 151 mg/dL (70-110)
[2024-12-05] MEDS: levETIRAcetam IV 500 MG/5 ML VIAL IVP SCH (19:55)
--- NOTE | 2024-12-05 21:45 | P.PN ---
Subjective Progress Note Date: 12/05/24 CHIEF COMPLAINT: GI bleed HISTORY OF PRESENT ILLNESS: The patient is a 69 year old female seen in the em ergency room with white blood cell count on admission over 40,000 and being seen also for sepsis by infectious disease team. General surgery was consulted for possible GI bleed and hematemesis. Incidentally, she had findings of fecal impaction with severe fecaloma. She has had multiple bowel movements. Per discussion with nurse, patient now has new neurological deficits including lumbar puncture today and is not cleared to undergo any endoscopy per neurology. No reports of blood in stools. REVIEW OF ORGAN SYSTEMS: Patient legally blind. Reports of new neurological deficits. PHYSICAL EXAM: VITALS: Reviewed CONSTITUTIONAL: Well developed and in no acute distress. EYES: Conjuctivae without sclera icterus. HEAD, EARS, NOSE, THROAT: Moist buccal mucosa. Head is atraumatic, normoce phalic. Hears conversational speech. No nasal drainage. RESPIRATORY: Non-labored respirations and equal bilateral excursions. No gross wheezes. CARDIOVASCULAR: Palpable 2+ radial pulses. ABDOMEN: Obese. Resolved abdominal distention. MUSCULOSKELETAL: No clubbing cyanosis or edema SKIN: Warm and well perfused with good skin turgor. NEUROLOGIC: Blunted PSYCH: Blunted affect CLINCAL LABS: Reviewed LABS:W BC down from 35,000 to 29,000. On admission, 43,000. Hemoglobin down 14.9-13.6. Sodium elevated 150, hypernatremia. Potassium low 3.1, hypokalemia. ASSESSMENT: 1. GI bleed with hematemesis. 2. Sepsis on admission. 3. Diabetes type 2 4. Hypertensive heart disease 5. Lactic acidosis with sepsis 6. Fecal impaction for fecaloma 7. Hypokalemia 8. Hypernatremia 9. Altered mental status changes PLAN: 1. Per discussion with nursing, will hold endoscopy until cleared by neurology. 2. Ideally, patient was scheduled to go on for endoscopy to assess for hematemesis. 3. Fecal impaction and fecaloma resolved with multiple bowel movements and abdominal distention improved. 4. May start diet when medically cleared by neurology Dictation was produced using [employer] dictation software. Please excuse any grammatical, word or spelling errors. Objective - Vital Signs Vital signs: Vital Signs Temp 98.4 F 12/05/24 16:00 Pulse 96 12/05/24 16:00 Resp 18 12/05/24 16:00 BP 150/62 12/05/24 16:00 Pulse Ox 99 12/05/24 16:00 FiO2 Intake & Output 12/05/24 12/05/24 12/06/24 06:59 18:59 06:59 Output Total 400 675 Balance -400 -675 Weight 73.4 kg Output: Urine 400 675 Other: Voiding Method Indwelling Catheter Indwelling Catheter # Bowel Movements 0 - Labs CBC & Chem 7: 12/05/24 06:33 12/05/24 06:33 Labs: Abnormal Lab Results - Last 24 Hours (Table) 12/05/24 12/05/24 12/05/24 Range/Units 06:21 06:33 06:33 WBC 29.03 H (4.50-10.00) 10*3/uL MPV 9.2 L (9.5-12.2) fL Immature Gran # 0.72 H (0.00-0.04) 10*3/uL Neutrophils # (Manual) 26.42 H (1.3-7.7) k/uL Metamyelocytes # (Man) 0.29 H (0) k/uL Sodium 150 H (137-145) mmol/L Potassium 3.1 L (3.5-5.1) mmol/L Chloride 114 H (98-107) mmol/L Carbon Dioxide 18 L (22-30) mmol/L BUN 45 H (7-17) mg/dL Glucose 151 H (74-99) mg/dL POC Glucose (mg/dL) 69 L (70-110) mg/dL CSF Glucose (40-70) mg/dL CSF Total Protein (12-60) mg/dL 12/05/24 12/05/24 12/05/24 Range/Units 06:46 17:00 18:44 WBC (4.50-10.00) 10*3/uL MPV (9.5-12.2) fL Immature Gran # (0.00-0.04) 10*3/uL Neutrophils # (Manual) (1.3-7.7) k/uL Metamyelocytes # (Man) (0) k/uL Sodium (137-145) mmol/L Potassium (3.5-5.1) mmol/L Chloride (98-107) mmol/L Carbon Dioxide (22-30) mmol/L BUN (7-17) mg/dL Glucose (74-99) mg/dL POC Glucose (mg/dL) 126 H 151 H (70-110) mg/dL CSF Glucose 71 H (40-70) mg/dL CSF Total Protein 86 H (12-60) mg/dL Microbiology - Last 24 Hours (Table) 12/03/24 10:25 Blood Culture - Preliminary Blood 12/03/24 11:39 Urine Culture - Final Urine,Voided
--- NOTE | 2024-12-05 23:45 | PN ---
PROGRESS NOTE DATE OF SERVICE: 12/05/2024 HISTORY OF PRESENT ILLNESS: This 69-year-old woman UTI with sepsis, also had suspected GI bleed. Also, the patient is confused. The patient to the right also. A CT of the brain, which I have ordered yesterday, which I reviewed personally showed no acute abnormality, nonspecific white matter changes. Multiple consultants are following the patient closely. The cultures are negative so far. The sodium is also elevated. could not be taken. CURRENT MEDICATIONS: Reviewed. PHYSICAL EXAMINATION: VITAL SIGNS: Pulse is 91, blood pressure 140/70, respirations 18. HEENT: Conjunctivae normal. LUNGS: Few scattered rhonchi. ABDOMEN: Soft. n LABORATORY DATA: WBCn. Sodium 150. ASSESSMENT: 1. Hypotension with acute severe urinary tract infection with septic shock, present on admission. 2. Rule out gastrointestinal bleed, coffee-ground vomitus, emesis, present on admission. 3. Change in mental status, acute metabolic encephalopathy, rule out acute stroke. 4. Increased WBC, leukemoid reaction. 5. Acute renal failure, acute tubular necrosis, present on admission. 6. Diabetes mellitus, type 2. 7. Change in mental status, acute metabolic encephalopathy. 8. Hypertension. 9. Hyperlipidemia. 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 11.No code, no CPR, no vent. 12.Hypernatremia. RECOMMENDATIONS: Recommend to continue current medications, symptomatic treatment with broad- spectrum IV antibiotics. I would also recommend neuro checks, neurovascular monitoring. I would change the fluid to D5 water KCl and repeat labs in the morning. Closely follow with multiple consultants. Prognosis extremely guarded because of the above- mentioned multiple complex medical issues and further recommendations to follow. MMODL / IJN: [id number] / CHINTAN
[2024-12-06 00:13] LABS: Glucose,Whole Blood 183 mg/dL (70-110)
[2024-12-06] MEDS: INSULIN LISPRO (HumaLOG) 100 UNIT/ML 10 mL VL SQ SCH (00:22)
[2024-12-06 06:12] LABS: Glucose,Whole Blood 194 mg/dL (70-110)
[2024-12-06 07:50] LABS: HCT 40.7 % (37.2-46.3); HGB 13.4 g/dL (12.0-15.0); MCH 30.2 pg (27.0-32.0); MCHC 32.9 g/dL (32.0-37.0); MCV 91.9 fL (80.0-97.0); Platelet Count 382 10*3/uL (140-440); RBC 4.43 10*6/uL (4.10-5.20); RDW 14.0 % (11.5-14.5); WBC 32.48 10*3/uL (4.50-10.00)
[2024-12-06 08:07] LABS: African American GFR (CKD) >90 (>60 ml/min/1.73 sqM); Anion Gap 15 mmol/L; Blood Urea Nitrogen 33 mg/dL (7-17); Calcium 8.7 mg/dL (8.4-10.2); Carbon Dioxide 17 mmol/L (22-30); Chloride 118 mmol/L (98-107); Glucose 206 mg/dL (74-99); Non-African American GFR(CKD) >90 (>60 ml/min/1.73 sqM); Sodium 150 mmol/L (137-145)
[2024-12-06 08:41] LABS: Potassium 4.8 mmol/L (3.5-5.1)
--- NOTE | 2024-12-06 09:50 | P.PN ---
Subjective Progress Note Date: 12/06/24 CHIEF COMPLAINT: GI bleed HISTORY OF PRESENT ILLNESS: The patient is a 69 year old female seen in the em ergency room with white blood cell count on admission over 40,000 and being seen also for sepsis by infectious disease team. Patient being followed for GI bleed. Since admission, patient had multiple enemas with multiple bowel movements all without obvious signs of bleeding. Patient's history positive for hematemesis prior to admission but none during admission. Patient being assessed for change in neurological status. Hemoglobin has been stable greater than 13 g/dL since admission for the last 2 to 3 days. Nurse reports that patient is having bowel movements. REVIEW OF ORGAN SYSTEMS: Patient legally blind. Reports of new neurological deficits. PHYSICAL EXAM: VITALS: Reviewed CONSTITUTIONAL: Well developed and in no acute distress. EYES: Conjuctivae without sclera icterus. HEAD, EARS, NOSE, THROAT: Moist buccal mucosa. Head is atraumatic, normocephalic. No nasal drainage. Minimally verbal RESPIRATORY: Non-labored respirations and equal bilateral excursions. No gross wheezes. CARDIOVASCULAR: Palpable 2+ radial pulses. ABDOMEN: Obese. Soft. Nondistended. MUSCULOSKELETAL: No clubbing cyanosis or edema SKIN: Warm and well perfused with good skin turgor. NEUROLOGIC: Blunted PSYCH: Blunted affect CLINCAL LABS: Reviewed LABS:W BC down from 35,000 to 29,000, now elevated 32,000. On admission, 43,000. Hemoglobin down 14.9-13.6, today 13.4 ASSESSMENT: 1. GI bleed with hematemesis. 2. Sepsis on admission. 3. Diabetes type 2 4. Hypertensive heart disease 5. Lactic acidosis with sepsis 6. Fecal impaction for fecaloma 7. Hypokalemia 8. Hypernatremia 9. Altered mental status changes PLAN: 1. Hemoglobin has been stable since admission and no signs of bleeding during this admission. 2. As patient has acuity for mental status changes and per nursing unstable to undergo endoscopy, will sign off at this time 3. Please reconsult if needed Dictation was produced using [employer] dictation software. Please excuse any grammatical, word or spelling errors. Objective - Vital Signs Vital signs: Vital Signs Temp 99.4 F 12/06/24 08:15 Pulse 98 12/06/24 08:15 Resp 40 H 12/06/24 08:15 BP 146/78 12/06/24 08:15 Pulse Ox 100 12/06/24 08:15 FiO2 Intake & Output 12/05/24 12/06/24 12/06/24 18:59 06:59 18:59 Output Total 675 700 Balance -675 -700 Weight 76.5 kg Output: Urine 67 700 Other: Voiding Method Indwelling Catheter Indwelling Catheter # Bowel Movements 1 - Labs CBC & Chem 7: 12/06/24 07:34 12/06/24 07:34 Labs: Abnormal Lab Results - Last 24 Hours (Table) 12/05/24 12/05/24 12/05/24 Range/Units 06:33 17:00 18:44 WBC (4.50-10.00) 10*3/uL MPV (9.5-12.2) fL Immature Gran # (0.00-0.04) 10*3/uL Neutrophils # (Manual) 26.42 H (1.3-7.7) k/uL Metamyelocytes # (Man) 0.29 H (0) k/uL Sodium (137-145) mmol/L Chloride (98-107) mmol/L Carbon Dioxide (22-30) mmol/L BUN (7-17) mg/dL Glucose (74-99) mg/dL POC Glucose (mg/dL) 151 H (70-110) mg/dL CSF Glucose 71 H (40-70) mg/dL CSF Total Protein 86 H (12-60) mg/dL 12/06/24 12/06/24 12/06/24 Range/Units 00:12 06:10 07:34 WBC 32.48 H (4.50-10.00) 10*3/uL MPV 8.8 L (9.5-12.2) fL Immature Gran # 1.07 H (0.00-0.04) 10*3/uL Neutrophils # (Manual) (1.3-7.7) k/uL Metamyelocytes # (Man) (0) k/uL Sodium (137-145) mmol/L Chloride (98-107) mmol/L Carbon Dioxide (22-30) mmol/L BUN (7-17) mg/dL Glucose (74-99) mg/dL POC Glucose (mg/dL) 183 H 194 H (70-110) mg/dL CSF Glucose (40-70) mg/dL CSF Total Protein (12-60) mg/dL 12/06/24 Range/Units 07:34 WBC (4.50-10.00) 10*3/uL MPV (9.5-12.2) fL Immature Gran # (0.00-0.04) 10*3/uL Neutrophils # (Manual) (1.3-7.7) k/uL Metamyelocytes # (Man) (0) k/uL Sodium 150 H (137-145) mmol/L Chloride 118 H (98-107) mmol/L Carbon Dioxide 17 L (22-30) mmol/L BUN 33 H (7-17) mg/dL Glucose 206 H (74-99) mg/dL POC Glucose (mg/dL) (70-110) mg/dL CSF Glucose (40-70) mg/dL CSF Total Protein (12-60) mg/dL Microbiology - Last 24 Hours (Table) 12/03/24 10:25 Blood Culture - Preliminary Blood 12/03/24 11:39 Urine Culture - Final Urine,Voided
--- NOTE | 2024-12-06 10:25 | MR ---
INDICATION: Patient age:Female; 69 years old; Reason for study: altered mental status; PHH. COMPARISON: CT brain 12/04/2024. TECHNIQUE: Multi planar, multi sequence imaging was performed through the brain. The patient was then given 7 cc of Gadobutrol intravenously and multi planar, T1 fat-saturation images were obtained. FINDINGS: The feldman-white junctions appear unremarkable. Mild to moderate cerebral atrophy. Dilatation of the ve ntricular system and prominence of the basal cisterns appears related to levels or atrophy. Diffusion -weighted imaging shows no evidence of restricted diffusion to suggest acute/subacute infarct. Intrac ranial arterial flow voids are maintained. Midline structures show no abnormality. Few foci of high T 2/FLAIR signal intensity are seen within the periventricular white matter. The susceptibility weighte d images do not reveal any evidence for micro-hemorrhage. After administration of gadolinium, no abno rmal enhancement is seen. The bone marrow signal is within normal limits. Trace bilateral mastoid effusions. Mild mucosal thick ening of both maxillary sinuses with air-fluid levels. Moderate mucosal thickening of the bilateral s phenoid sinuses with air-fluid levels. Moderate mucosal thickening of the ethmoid sinuses. Bilateral aphakia. IMPRESSION: 1. No evidence of intracranial mass, acute/subacute infarct, or abnormal enhancement. 2. Nonspecific minimal white matter changes, likely related to small vessel ischemic disease. 3. Moderate to severe paranasal sinus disease with air-fluid levels. Correlate clinically for acute s inusitis. [facility], , 12/06/2024 10:23 AM
[2024-12-06 11:09] LABS: Lymphocytes # (M) 2.27 k/uL (1.0-4.8); Metamyelocytes # (M) 0.32 k/uL (0); Monocytes # (M) 1.62 k/uL (0-1.0); Neutrophils # (M) 28.90 k/uL (1.3-7.7); Neutrophils % (M) 87 %; Total Cells Counted 200
[2024-12-06 11:10] LABS: RBC Morphology Normal
[2024-12-06 11:44] LABS: Glucose,Whole Blood 181 mg/dL (70-110)
--- NOTE | 2024-12-06 12:45 | P.PN ---
Subjective Progress Note Date: 12/06/24 Principal diagnosis: Reason for follow-up is leukocytosis/infection Patient is a 69-year-old female with a past medical history significant for type 2 diabetes mellitus hypertension hyperlipidemia hypothyroidism and half-way resident patient has been sent to the hospital from the half-way concerning for altered mental status also found to be lethargic patient did have elevated white count positive UA prompted this consultation. On today's evaluation that is 12/06/2024,the patient remains to be afebrile patient is currently breathing comfortably on room air satting around 100% patient remains to be unresponsive hands did not answer any question no vomiting has been reported hard to be to have some diarrhea as reported by the nurse aide. The patient white count is 32.48 creatinine 0.61 she did have LP completed yesterday glucose was 71 protein is 86 no WBC MRI of the brain no evidence for intracranial mass acute/subacute infarct Objective - Vital Signs Vital signs: Vital Signs Temp 99.1 F 12/06/24 11:46 Pulse 91 12/06/24 11:46 Resp 26 H 12/06/24 11:46 BP 149/79 12/06/24 11:46 Pulse Ox 100 12/06/24 11:46 FiO2 Intake & Output 12/05/24 12/06/24 12/06/24 18:59 06:59 18:59 Output Total 675 700 600 Balance -675 700 -600 Weight 76.5 kg Output: Urine 675 700 600 Other: Voiding Method Indwelling Catheter Indwelling Catheter Indwelling Catheter # Bowel Movements 1 1 - Exam GENERAL DESCRIPTION: An elderly female lying in bed in no distress RESPIRATORY SYSTEM: Unlabored breathing , decreased breath sounds at bases HEART: S1 S2 regular rate and rhythm , ABDOMEN: Soft , no tenderness - Labs CBC & Chem 7: 12/06/24 07:34 12/06/24 07:34 Labs: Abnormal Lab Results - Last 24 Hours (Table) 12/05/24 12/05/24 12/06/24 Range/Units 17:00 18:44 00:12 WBC (4.50-10.00) 10*3/uL MPV (9.5-12.2) fL Immature Gran # (0.00-0.04) 10*3/uL Neutrophils # (Manual) (1.3-7.7) k/uL Monocytes # (Manual) (0-1.0) k/uL Metamyelocytes # (Man) (0) k/uL Sodium (137-145) mmol/L Chloride (98-107) mmol/L Carbon Dioxide (22-30) mmol/L BUN (7-17) mg/dL Glucose (74-99) mg/dL POC Glucose (mg/dL) 151 H 183 H (70-110) mg/dL CSF Glucose 71 H (40-70) mg/dL CSF Total Protein 86 H (12-60) mg/dL 12/06/24 12/06/24 12/06/24 Range/Units 06:10 07:34 07:34 WBC 32.48 H (4.50-10.00) 10*3/uL MPV 8.8 L (9.5-12.2) fL Immature Gran # 1.07 H (0.00-0.04) 10*3/uL Neutrophils # (Manual) 28.90 H (1.3-7.7) k/uL Monocytes # (Manual) 1.62 H (0-1.0) k/uL Metamyelocytes # (Man) 0.32 H (0) k/uL Sodium 150 H (137-145) mmol/L Chloride 118 H (98-107) mmol/L Carbon Dioxide 17 L (22-30) mmol/L BUN 33 H (7-17) mg/dL Glucose 206 H (74-99) mg/dL POC Glucose (mg/dL) 194 H (70-110) mg/dL CSF Glucose (40-70) mg/dL CSF Total Protein (12-60) mg/dL 12/06/24 Range/Units 11:43 WBC (4.50-10.00) 10*3/uL MPV (9.5-12.2) fL Immature Gran # (0.00-0.04) 10*3/uL Neutrophils # (Manual) (1.3-7.7) k/uL Monocytes # (Manual) (0-1.0) k/uL Metamyelocytes # (Man) (0) k/uL Sodium (137-145) mmol/L Chloride (98-107) mmol/L Carbon Dioxide (22-30) mmol/L BUN (7-17) mg/dL Glucose (74-99) mg/dL POC Glucose (mg/dL) 181 H (70-110) mg/dL CSF Glucose (40-70) mg/dL CSF Total Protein (12-60) mg/dL Microbiology - Last 24 Hours (Table) 12/03/24 10:25 Blood Culture - Preliminary Blood Assessment and Plan (1) UTI (urinary tract infection) Current Visit: Yes Status: Acute Code(s): N39.0 - URINARY TRACT INFECTION, SITE NOT SPECIFIED SNOMED Code(s): 19196689 (2) Leukocytosis Current Visit: Yes Status: Acute Code(s): D72.829 - ELEVATED WHITE BLOOD CELL COUNT, UNSPECIFIED SNOMED Code(s): 224765594 (3) Diarrhea Current Visit: Yes Status: Acute Code(s): R19.7 - DIARRHEA, UNSPECIFIED SN OMED Code(s): 55996721 Plan: 1patient presented to hospital with sepsis in this patient who did have hypotension requiring fluid and pressor support patient also have significant elevated white count elevated lactic acid medically for SIRS/sepsis source is likely urinary patient also have significant stool burden on the CT but did not mention evidence of colitis or diverticulitis and no need for further enteric gram-negative and less likely gram positive sylvester 2-patient is been evaluated by neurology patient did have an MRI that was negative for any acute infarct or bleed she also have an LP not suggestive of encephalitis or meningitis 3patient did have worsening of the white count and now developed diarrhea high clinic suspicious for C. difficile can check a stool for C. difficile and empirically add oral vancomycin and see clinical response Dictation was produced using [employer] dictation software. please excuse any grammatical, word or spelling errors. Time with Patient: Greater than 30
--- NOTE | 2024-12-06 14:03 | P.PN ---
Subjective Progress Note Date: 12/06/24 Principal diagnosis: Patient seen and examined at bedside today. Blood pressure today is 146/78. White count increased to 32.48 and sodium at 150 CSF studies show clear appearance, RBC 4, glucose 71, protein 86 , Total nucleated cells 0 Objective - Vital Signs Vital signs: Vital Signs Temp 99.4 F 12/06/24 08:15 Pulse 98 12/06/24 08:15 Resp 40 H 12/06/24 08:15 BP 146/78 12/06/24 08:15 Pulse Ox 100 12/06/24 08:15 FiO2 Intake & Output 12/05/24 12/06/24 12/06/24 18:59 06:59 18:59 Output Total 675 700 Balance -675 -700 Weight 76.5 kg Output: Urine 675 700 Other: Voiding Method Indwelling Catheter Indwelling Catheter # Bowel Movements 1 - Exam General: no distress, lying in bed On general examination, there is no carotid bruit or murmur, S1-S2 audible. Chest is clear on consultation. Abdomen is soft nontender. No peripheral edema. Neuro: does not respond to questions stiff and rigid neck, Face is symmetric Unable to test muscle strength Deep tendon reflexes are symmetric 1 at the biceps, brachioradialis, knees and plantars indeterminate Sensory to touch is equal - Labs CBC & Chem 7: 12/06/24 07:34 12/06/24 07:34 Labs: Abnormal Lab Results - Last 24 Hours (Table) 12/05/24 12/05/24 12/05/24 Range/Units 06:33 17:00 18:44 WBC (4.50-10.00) 10*3/uL MPV (9.5-12.2) fL Immature Gran # (0.00-0.04) 10*3/uL Neutrophils # (Manual) 26.42 H (1.3-7.7) k/uL Metamyelocytes # (Man) 0.29 H (0) k/uL Sodium (137-145) mmol/L Chloride (98-107) mmol/L Carbon Dioxide (22-30) mmol/L BUN (7-17) mg/dL Glucose (74-99) mg/dL POC Glucose (mg/dL) 151 H (70-110) mg/dL CSF Glucose 71 H (40-70) mg/dL CSF Total Protein 86 H (12-60) mg/dL 12/06/24 12/06/24 12/06/24 Range/Units 00:12 06:10 07:34 WBC 32.48 H (4.50-10.00) 10*3/uL MPV 8.8 L (9.5-12.2) fL Immature Gran # 1.07 H (0.00-0.04) 10*3/uL Neutrophils # (Manual) (1.3-7.7) k/uL Metamyelocytes # (Man) (0) k/uL Sodium (137-145) mmol/L Chloride (98-107) mmol/L Carbon Dioxide (22-30) mmol/L BUN (7-17) mg/dL Glucose (74-99) mg/dL POC Glucose (mg/dL) 183 H 194 H (70-110) mg/dL CSF Glucose (40-70) mg/dL CSF Total Protein (12-60) mg/dL 12/06/24 Range/Units 07:34 WBC (4.50-10.00) 10*3/uL MPV (9.5-12.2) fL Immature Gran # (0.00-0.04) 10*3/uL Neutrophils # (Manual) (1.3-7.7) k/uL Metamyelocytes # (Man) (0) k/uL Sodium 150 H (137-145) mmol/L Chloride 118 H (98-107) mmol/L Carbon Dioxide 17 L (22-30) mmol/L BUN 33 H (7-17) mg/dL Glucose 206 H (74-99) mg/dL POC Glucose (mg/dL) (70-110) mg/dL CSF Glucose (40-70) mg/dL CSF Total Protein (12-60) mg/dL Microbiology - Last 24 Hours (Table) 12/03/24 10:25 Blood Culture - Preliminary Blood 12/03/24 11:39 Urine Culture - Final Urine,Voided Assessment and Plan Assessment: Altered mental status, rightward gaze deviation: Unsure exact etiology. MRI Brain is negative for acute stroke or enhancement, CSF study is negative for meningoencephalitis. Rule out seizure. Also rule out sepsis of unknown etiology leading to her symptoms. Hypotensive on admission, now improved Leukocytosis, Unknown etiology, Signs of UTI on UA, urine culture negative, blood culture negative till date Hypertension Hyperlipidemia Diabetes mellitus Plan: Brain MRI shows no evidence of intracranial mass, acute/subacute infarct MRI abdomen and placement nonspecific minimal early degenerative changes likely small vessel ischemic disease moderate to severe paranasal sinus disease with air-fluid level. Brain CT shows no acute intracranial process and nonspecific white matter changes likely secondary to chronic small vessel ischemic disease and paranasal sinus disease with air fluid levels. Lumbar puncture 12/05/24, CSF studies show clear appearance, RBC 4, glucose 71, protein 86 , Total nucleated cells 0 Ativan 1mg IV given once, rightward gaze deviation improved after Ativan administration Keppra 1 gm IV given once, continue Keppra 500 mg Q12HR Obtain EEG to rule out seizures Intially seemed like Urosepsis, talked to ID who has now ruled it out. Defer antibiotic/antivirals to ID Dictation was produced using [employer] dictation software. please excuse any grammatical, word or spelling errors. Suzette Serna MD PGY-2 IM I personally examined the patient and reviewed labs and imaging. CSF study is negative for underlying infection. MRI Brain is unremarkable for acute process or enhancement. Preliminary EEG is negative for seizure. I spoke with I.D. regarding the results of neurology work-up and defer further investigation of leukocytosis to I.D. team and primary team. I agree with the resident's Assessment and Plan. Anshu Torres M.D. Time with Patient: Less than 30
[2024-12-06] MEDS: VANCOMYCIN 125 MG CAPSULE PO SCH (14:51)
--- NOTE | 2024-12-06 15:24 | PN ---
PROGRESS NOTE DATE OF SERVICE: 12/06/2024 SUBJECTIVE: This is a 69-year-old woman is admitted with hypotension, possibly UTI, is being closely monitored at this time. The patient also being evaluated for possible GI bleed. The patient is confused and brain MRI showed no evidence of an acute issues. [id number] sinus disease was noted. PAST MEDICAL HISTORY: Reviewed. REVIEW OF SYSTEMS: Could not be taken. CURRENT MEDICATIONS: Reviewed. PHYSICAL EXAMINATION: VITAL SIGNS: Pulse is 91, blood pressure 149/79, and respirations 26. CHEST: Few scattered rhonchi. ABDOMEN: Soft. NERVOUS SYSTEM: Nonfocal. LABORATORY DATA: WBC noted. Sodium 150. ASSESSMENT: 1. Hypotension with acute severe urinary tract infection with septic shock, present on admission. 2. Rule out coffee ground emesis and gastrointestinal bleed, present on admission with change in mental status. 3. Acute metabolic encephalopathy, acute stroke ruled out. 4. Increased WBC, leukemoid reaction. 5. Acute renal failure with acute tubular necrosis, present on admission. 6. Diabetes mellitus, type 2. 7. Change in mental status, acute metabolic encephalopathy. 8. Hypertension. 9. Hyperlipidemia. 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 11.Hypernatremia. 12.No code, no CPR, no vent. RECOMMENDATIONS: Recommend to continue current medications and continue symptomatic treatment. Otherwise continue with the antibiotics. Follow the cultures. We will continue with IV fluids. Sodium was 150 yesterday and we will continue to monitor. Repeat labs. Guarded prognosis, because of multiple complex medical issues. Further recommendations to follow. MMODL / IJN: [id number] /
--- NOTE | 2024-12-06 16:50 | P.PN ---
Subjective Progress Note Date: 12/06/24 Patient is a 69-year-old female patient, and group home resident, who presented to the emergency department because of altered mentation, lethargy, and dehydration. The patient is unable to volunteer any history. She is legally blind. Apparently, the patient usually is alert and oriented x 3. The patient was seen in the emergency department immediately the patient was diagnosed having urine tract infection with secondary sepsis. The patient was found to have a white cell count of 42,000 with a hemoglobin of 15.3. The patient had a platelet count of 339. 81% neutrophilia. Normal coagulation profile. The patient was in acute kidney failure with a BUN of 42 and a creatinine of 1.6. Serum bicarb was at 16 with a gap of 21. Blood sugar was at 282. Lactic acid level was at 6. Mild transaminitis with vallecular phosphatase being elevated. UA was abnormal with large number of white cells. Arguelles catheter was inserted and urine output was minimal along with sediments. The patient was started on IV fluids. The patient was given a 20 L of normal saline. 1/3 L is to infuse. The patient will be started on norepinephrine for blood pressure support. The patient was started on a combination of cefepime and vancomycin. Meanwhile, the patient is currently on 2 L of oxygen by nasal cannula with pulse ox of 98%. No reported aspiration. Chest x-ray showed no acute abnormalities. CAT scan of the abdomen and pelvis was also noted and the patient was found to have marked amount of stool in the colon and the rectum and nonobstructive bilateral renal calculi. The patient was given an enema in the emergency department. At this point in time, the patient had a lactated Ringer at rate of 130 cc an hour. 1/3 L of normal saline was also infused. Due to diminished level of consciousness, the patient will be kept n.p.o. for now. Home medications were all reviewed. Patient was seen today while in the ER, patient is now off norepinephrine, her initial presentation is a presentation of septic shock with urinary tract infection associate with hypotension, she has acute leukocytosis with acute lactic acidosis and acute kidney injury secondary to dehydration in addition she has fecal constipation/impaction with type 2 diabetes hypothyroidism hypertension and chronic depression. Patient is not a great historian, but she is hemodynamically stable, she has altered mental status and lethargy, but does not seem to be in any form of respiratory distress. Hence I am planning to downgrade the patient to a medical floor instead of going to ICU. Labs were reviewed today she has leukocytosis with WBC count of 35.2 hemoglobin 14.9 electrolytes are normal renal profile showed a BUN of 44 creatinine 0.79 lactic acid yesterday was 2.3 and it is 1.8 today. No microbiology available at this point. But we suspect that the patient is septic from urinary tract infection. Patient was seen today on 12/05/2024, patient is hemodynamically stable, comfortable, not in any distress, patient does have some component of encephalopathy and she is lethargic. But does not seem to be in respiratory distress. On 2 L nasal cannula, patient could not provide any history or any information. Her urine and blood cultures are negative so far. Continues to have leukocytosis with WBC count of 29 hemoglobin 13.6 sodium is up to 150 hence the patient will be given D5W as IV fluid running at 75 cc/h. Her presentation was a presentation of sepsis, patient had hypotension, she required fluid boluses and she required pressors she also had leukocytosis, we felt that her primary source is urine however her urine so far seems to be negative. Patient had no symptoms to suggest colitis initially she was placed on cefepime however this was changed today by infectious disease to Zosyn. Mostly to cover abdominal coverage for aerobes and anaerobes. The patient is seen today December 06, 2024 in follow-up on the selective care unit. She remains quite obtunded. Minimally responsive. She is maintaining good O2 saturations up to 100% on room air oxygen. She has been afebrile. Hemodynam ically stable. She did undergo lumbar puncture yesterday. Results are pending. MRI of the brain revealed no evidence of intracranial mass, acute/subacute acute infarct or abnormal enhancement. Urine culture revealed no growth. Blood culture revealed no growth. White count 32.4. Hemoglobin 13.4. Platelets 382. Sodium 150. Potassium 4.8. Bicarb 17. BUN 33. Creatinine 0.61. Glucose 206. She remains on Zosyn. Receiving D5W with 40 of KCl at 75 mL/h. Objective - Vital Signs Vital signs: Vital Signs Temp 98.9 F 12/06/24 15:22 Pulse 104 H 12/06/24 15:22 Resp 26 H 12/06/24 15:22 BP 173/80 12/06/24 15:22 Pulse Ox 95 12/06/24 15:22 FiO2 Intake & Output 12/05/24 12/06/24 12/06/24 18:59 06:59 18:59 Output Total 675 700 600 Balance -545 -700 -600 Weight 76.5 kg Output: Urine 675 700 600 Other: Voiding Method Indwelling Catheter Indwelling Catheter Indwelling Catheter # Bowel Movements 1 1 - Exam GENERAL EXAM: Obtunded 69-year-old female, on room air oxygen, in no apparent distress. HEAD: Normocephalic. EYES: Normal reaction of pupils, equal size. NOSE: Clear with pink turbinates. THROAT: No erythema or exudates. NECK: No masses, no JVD. CHEST: No chest wall deformity. LUNGS: Equal air entry with no crackles, wheeze, rhonchi or dullness. CVS: S1 and S2 normal with no audible murmur, regular rhythm. ABDOMEN: No hepatosplenomegaly, normal bowel sounds, no guarding or rigidity. SPINE: No scoliosis or deformity SKIN: No rashes CENTRAL NERVOUS SYSTEM: Obtunded, tone is normal in all 4 extremities. EXTREMITIES: There is no peripheral edema. No clubbing, no cyanosis. Peripheral pulses are intact. - Labs CBC & Chem 7: 12/06/24 07:34 12/06/24 07:34 Labs: Abnormal Lab Results - Last 24 Hours (Table) 12/05/24 12/05/24 12/06/24 Range/Units 17:00 18:44 00:12 WBC (4.50-10.00) 10*3/uL MPV (9.5-12.2) fL Immature Gran # (0.00-0.04) 10*3/uL Neutrophils # (Manual) (1.3-7.7) k/uL Monocytes # (Manual) (0-1.0) k/uL Metamyelocytes # (Man) (0) k/uL Sodium (137-145) mmol/L Chloride (98-107) mmol/L Carbon Dioxide (22-30) mmol/L BUN (7-17) mg/dL Glucose (74-99) mg/dL POC Glucose (mg/dL) 151 H 183 H (70-110) mg/dL CSF Glucose 71 H (40-70) mg/dL CSF Total Protein 86 H (12-60) mg/dL 12/06/24 12/06/24 12/06/24 Range/Units 06:10 07:34 07:34 WBC 32.48 H (4.50-10.00) 10*3/uL MPV 8.8 L (9.5-12.2) fL Immature Gran # 1.07 H (0.00-0.04) 10*3/uL Neutrophils # (Manual) 28.90 H (1.3-7.7) k/uL Monocytes # (Manual) 1.62 H (0-1.0) k/uL Metamyelocytes # (Man) 0.32 H (0) k/uL Sodium 150 H (137-145) mmol/L Chloride 118 H (98-107) mmol/L Carbon Dioxide 17 L (22-30) mmol/L BUN 33 H (7-17) mg/dL Glucose 206 H (74-99) mg/dL POC Glucose (mg/dL) 194 H (70-110) mg/dL CSF Glucose (40-70) mg/dL CSF Total Protein (12-60) mg/dL 12/06/24 Range/Units 11:43 WBC (4.50-10.00) 10*3/uL MPV (9.5-12.2) fL Immature Gran # (0.00-0.04) 10*3/uL Neutrophils # (Manual) (1.3-7.7) k/uL Monocytes # (Manual) (0-1.0) k/uL Metamyelocytes # (Man) (0) k/uL Sodium (137-145) mmol/L Chloride (98-107) mmol/L Carbon Dioxide (22-30) mmol/L BUN (7-17) mg/dL Glucose (74-99) mg/dL POC Glucose (mg/dL) 181 H (70-110) mg/dL CSF Glucose (40-70) mg/dL CSF Total Protein (12-60) mg/dL Microbiology - Last 24 Hours (Table) 12/03/24 10:25 Blood Culture - Preliminary Blood Assessment and Plan Assessment: Septic shock/sepsis primary source is unknown at this point. Considering the patient has a negative urine cultures so far, her primary source of infection may be abdominal rather than urinary in nature. Hypotension secondary to above, currently on fluids and pressors and broad- spectrum antibiotics, recovered Altered mental status secondary to above, status post lumbar puncture on 12/05/2024 Acute leukocytosis secondary to above Acute lactic acidosis Acute kidney injury secondary to above Acute dehydration Fecal constipation/impaction Diabetes mellitus type 2 Hypothyroidism Hypertension Hyperlipidemia History of chronic depression Plan: The patient was seen and evaluated Labs and medications reviewed Lumbar puncture performed yesterday Cultures are pending MRI of the brain reviewed, no acute process Continued on Keppra Continued on Zosyn EEG pending Currently stable and on room air oxygen We will continue to follow I have personally seen and examined the patient, performed the documentation and the assessment and plan as written. Number of minutes spent on the visit: 10 Dictation was produced using [email or web address] dictation software. Please excuse any grammatical, word or spelling errors.
[2024-12-06 17:50] LABS: Glucose,Whole Blood 228 mg/dL (70-110)
--- NOTE | 2024-12-06 21:30 | EEG ---
ELECTROENCEPHALOGRAM REPORT CLINICAL HISTORY: This is a 69-year-old woman with altered mental status and right gaze deviation. The video EEG is obtained to evaluate for seizure epileptiform activity. RELEVANT MEDICATIONS: 1. Ativan. 2. Keppra. EEG TYPE: This is a routine 21-channel EEG with video using the 10/20 electrode system. DESCRIPTION: The background consists of [id number] voltage of 2.5-3.5 hertz activity that is polymorphic, nonrhythmic and at times, alternating with diffuse nonrhythmic theta activity. There was no physiological stage 2 sleep architecture. There is no focal slowing. Interictal and ictal; rare diffusely, sharp wave activity that is general and seems predominant over the frontal region bilaterally, but does not seem clear epileptic in nature. There are no clear discharges or seizure on the EEG. ACTIVATION PROCEDURE: Photic stimulation did not evoke a posterior driving response fish. There is no abnormality during the photic stimulation. Hyperventilation is not performed. CLINICAL INTERPRETATION: This is not abnormal routine EEG. The background slowing is suggestive of moderate-to- severe encephalopathy. There is no focal slowing, epileptiform discharges or seizure on the EEG. Lack of epileptiform discharge does not rule out underlying epilepsy. Clinical correlation is recommended. MMODL / IJN: [id number] / [facility]
[2024-12-07 00:09] LABS: Glucose,Whole Blood 202 mg/dL (70-110)
[2024-12-07 06:31] LABS: Glucose,Whole Blood 229 mg/dL (70-110)
[2024-12-07 07:35] LABS: HCT 38.2 % (37.2-46.3); HGB 12.6 g/dL (12.0-15.0); MCH 29.9 pg (27.0-32.0); MCHC 33.0 g/dL (32.0-37.0); MCV 90.7 fL (80.0-97.0); Platelet Count 387 10*3/uL (140-440); RBC 4.21 10*6/uL (4.10-5.20); RDW 14.0 % (11.5-14.5); WBC 27.85 10*3/uL (4.50-10.00)
[2024-12-07 07:56] LABS: African American GFR (CKD) >90 (>60 ml/min/1.73 sqM); Anion Gap 15 mmol/L; Blood Urea Nitrogen 28 mg/dL (7-17); Calcium 9.1 mg/dL (8.4-10.2); Carbon Dioxide 20 mmol/L (22-30); Chloride 117 mmol/L (98-107); Glucose 245 mg/dL (74-99); Non-African American GFR(CKD) >90 (>60 ml/min/1.73 sqM); Potassium 4.0 mmol/L (3.5-5.1); Sodium 152 mmol/L (137-145)
[2024-12-07 08:52] LABS: Lymphocytes # (M) 3.62 k/uL (1.0-4.8); Metamyelocytes # (M) 0.28 k/uL (0); Monocytes # (M) 1.11 k/uL (0-1.0); Myelocytes # (M) 0.28 k/uL (0); Neutrophils # (M) 23.11 k/uL (1.3-7.7); Neutrophils % (M) 81 %; Total Cells Counted 200
[2024-12-07 11:49] LABS: Glucose,Whole Blood 237 mg/dL (70-110)
--- NOTE | 2024-12-07 12:24 | P.PN ---
Subjective Progress Note Date: 12/07/24 Principal diagnosis: Patient seen and examined at bedside today. She is still unresponsive and does not follow commands. Blood pressure today is 146/78. White count decreased to 27.85 and sodium increased to 152 CSF culture and gram stain shows no growth EEG background slowing system of moderate to severe encephalopathy, no focal slowing/epileptiform discharge/seizure C. diff PCR and EIA is negative Objective - Vital Signs Vital signs: Vital Signs Temp 99.1 F 12/07/24 08:38 Pulse 59 L 12/07/24 08:38 Resp 40 H 12/07/24 08:38 BP 138/54 12/07/24 08:38 Pulse Ox 98 12/07/24 08:38 FiO2 Intake & Output 12/06/24 12/07/24 12/07/24 18:59 06:59 18:59 Intake Total 20 Output Total 900 525 Balance -900 -525 20 Weight 79 kg Intake: IV 20 Invasive Line 1 10 Invasive Line 2 10 Output: Urine 900 525 Other: Voiding Method Indwelling Catheter Indwelling Catheter Indwelling Catheter # Voids 1 # Bowel Movements 1 1 - Exam General: no distress, lying in bed On general examination, there is no carotid bruit or murmur, S1-S2 audible. Chest is clear on consultation. Abdomen is soft nontender. No peripheral edema. Neuro: does not respond to questions rightward gaze deviation, stiff and rigid neck, Face is symmetric Unable to test muscle strength Deep tendon reflexes are symmetric 1 at the biceps, brachioradialis, knees and plantars indeterminate - Labs CBC & Chem 7: 12/07/24 07:12 12/07/24 07:12 Labs: Abnormal Lab Results - Last 24 Hours (Table) 12/06/24 12/07/24 12/07/24 Range/Units 17:49 00:08 06:30 WBC (4.50-10.00) 10*3/uL MPV (9.5-12.2) fL Immature Gran # (0.00-0.04) 10*3/uL Neutrophils # (Manual) (1.3-7.7) k/uL Monocytes # (Manual) (0-1.0) k/uL Metamyelocytes # (Man) (0) k/uL Myelocytes # (Manual) (0) k/uL Sodium (137-145) mmol/L Chloride (98-107) mmol/L Carbon Dioxide (22-30) mmol/L BUN (7-17) mg/dL Glucose (74-99) mg/dL POC Glucose (mg/dL) 228 H 202 H 229 H (70-110) mg/dL 12/07/24 12/07/24 12/07/24 Range/Units 07:12 07:12 11:48 WBC 27.85 H (4.50-10.00) 10*3/uL MPV 8.6 L (9.5-12.2) fL Immature Gran # 1.73 H (0.00-0.04) 10*3/uL Neutrophils # (Manual) 23.11 H (1.3-7.7) k/uL Monocytes # (Manual) 1.11 H (0-1.0) k/uL Metamyelocytes # (Man) 0.28 H (0) k/uL Myelocytes # (Manual) 0.28 H (0) k/uL Sodium 152 H (137-145) mmol/L Chloride 117 H (98-107) mmol/L Carbon Dioxide 20 L (22-30) mmol/L BUN 28 H (7-17) mg/dL Glucose 245 H (74-99) mg/dL POC Glucose (mg/dL) 237 H (70-110) mg/dL Microbiology - Last 24 Hours (Table) 12/05/24 17:00 CSF Gram Stain - Preliminary Cerebral Spinal Fluid CSF Culture - Preliminary 12/03/24 10:25 Blood Culture - Preliminary Blood Assessment and Plan Assessment: Altered mental status, rightward gaze deviation: Unsure exact etiology. MRI Brain is negative for acute stroke or enhancement, CSF study is negative for meningoencephalitis. Rule out seizure but initial EEG was negative for seizure and patient is currently on Keppra. Also rule out sepsis of unknown etiology leading to her symptoms. Hypotensive on admission, now improved Leukocytosis, Unknown etiology, Signs of UTI on UA, urine culture negative, blood culture negative till date Hypernatremia Hypertension Hyperlipidemia Diabetes mellitus Plan: Brain MRI shows no evidence of intracranial mass, acute/subacute infarct MRI abdomen and placement nonspecific minimal early degenerative changes likely small vessel ischemic disease moderate to severe paranasal sinus disease with air-fluid level. Brain CT shows no acute intracranial process and nonspecific white matter changes likely secondary to chronic small vessel ischemic disease and paranasal sinus disease with air fluid levels. Lumbar puncture 12/05/24, CSF studies show clear appearance, RBC 4, glucose 71, protein 86 , Total nucleated cells 0. CSF culture and gram stain shows no growth EEG background slowing system of moderate to severe encephalopathy, no focal slowing/epileptiform discharge/seizure C. diff PCR and EIA is negative Ativan 1mg IV given once, rightward gaze deviation improved after Ativan administration Keppra 1 gm IV given once before and once today Keppra increased to 1000 mg Q12HR Start Valproic acid 1 gm IV once and then 500 mg IV Q12HR. patient has home med oral valproate which was not administered as patient is NPO Obtain lactic acid Repeat EEG today Intially seemed like Urosepsis, talked to ID who has now ruled it out. Defer further investigation of leukocytosis and antibiotic/antivirals to ID and primary team Dictation was produced using [email or web address] dictation software. please excuse any grammatical, word or spelling errors. Suzette Serna MD PGY-2 IM ADDENDUM: I personally examined the patient and reviewed the lab workup. Patient continues to be severely confused with fixation of the gaze to the right with nystagmus. As a result I was concerned for seizure and I gave the patient Ativan 1 mg. I also obtained a repeat EEG and there is discharges over the left parietal more than occipital. No seizures noted during the study. We increased the Keppra from 500 mg twice a day to 1000 mg and give another loading dose. Seems that the patient was not getting her home Depakote since the patient is n.p.o. as a result will start the patient on IV valproic acid with 1000 mg once loading then her home dose of 250 mg every 6 hours. Patient had CSF study and MRI of the brain which are unremarkable. She has leukocytosis and unknown source as well as has elevated likely acid which resolved. I spoke with the primary attending and recommended that the patient to be transferred to a tertiary center for prolonged EEG I agree with the residents assessment and plan. Anshu Torres M.D. Total spent on care is 45 minutes Time with Patient: Greater than 30
[2024-12-07] MEDS: LORazepam 1 MG/0.5 ML VIAL IV STA (12:33)
[2024-12-07 16:47] LABS: Glucose,Whole Blood 209 mg/dL (70-110)
[2024-12-07] MEDS: levETIRAcetam IV 500 MG/5 ML VIAL IVP STA (17:07)
[2024-12-07 18:11] LABS: Allen Test Performed? Yes
[2024-12-07 18:12] LABS: ABG HCO3 25 mmol/L (21-25); ABG PCO2 31 mmHg (35-45); ABG PH 7.52 (7.35-7.45); ABG PO2 66 mmHg (83-108); ABG TCO2 26 mmol/L (19-24)
--- NOTE | 2024-12-07 18:21 | P.PN ---
Progress Note - Text Progress Note Date: 12/07/24 Patient is admitted with altered mentation. Normally awake alert. December 07: Patient pretty much in bed encephalopathic/delirious. Spoke to the nurse has not been taking medications or any food since December 04. Patient has multiple medications at home. She also does take Neurontin and valproic acid. EEG from yesterday did not show any seizure activity but findings of encephalopathy. Patient is also getting IV Zosyn. ID is following the patient has empirically the patient on antibiotic. ID suspects a source of UTI. Note CBC differential shows a predominant lymphocytes. Also note patient's creatinine was 1.6 on presentation now down to 0.63. That itself could be contributing to altered mentation initially. Per neurology patient be started on IV Keppra and IV Depakote. At this point for metabolic acidosis will start the patient on sodium bicarbonate drip. Will stop Farxiga also. Switch the patient following to IV: Pepcid, Synthroid,. Patient still has nystagmus more fluids right and a bit in the vertical direction. Not able to answer any questions. Also discussed with Dr. Benz from ID. Patient will need a CT scan of the abdomen when more awake. She had quite a bit of diarrhea yesterday. But her C. difficile is come back negative. Including PCR. Oral Vanco will be discontinued. Total time spent today about 50 minutes with over 30 minutes of discussion. Active Medications Al Hydroxide/Mg Hydroxide (Mag Hydrox/Al Hydrox/Simeth 30 Ml Cup) 10 ml PO Q4H PRN PRN Reason: GI Upset Atorvastatin Calcium (Atorvastatin 10 Mg Tab) 10 mg PO [facility] Last Admin: 12/06/24 21:06 Dose: Not Given Bisacodyl (Bisacodyl 10 Mg Supp) 10 mg RECTAL DAILY PRN PRN Reason: Constipation Dextrose/Water (Dextrose 50% Syringe 50 Ml) 25 ml IVP PER PROTOCOL PRN; Protocol PRN Reason: Hypoglycemia Last Admin: 12/05/24 06:24 Dose: 25 ml Dextrose/Water (Dextrose 50% Syringe 50 Ml) 50 ml IVP PER PROTOCOL PRN; Protocol PRN Reason: Hypoglycemia Famotidine (Famotidine 20 Mg/2 Ml Vial) 20 mg IV Q12HR NAM Gabapentin (Gabapentin 300 Mg Cap) 300 mg PO BID [facility] Last Admin: 12/07/24 08:51 Dose: Not Given Guaifenesin (Guaifenesin Syrup 100mg/5ml 200 Mg/10 Ml Cup) 200 mg PO Q4H PRN PRN Reason: Cough Piperacillin Sod/Tazobactam (Sod 3.375 gm/ Sodium Chloride) 100 mls @ 25 mls/hr IVPB Q8HR [facility]; Protocol Last Admin: 12/07/24 17:07 Dose: 25 mls/hr Valproic Acid 500 mg/ Sodium (Chloride) 105 mls @ 100 mls/hr IVPB Q12HR [facility] Sodium Bicarbonate 150 ml/ (Dextrose/Water) 1,150 mls @ 125 mls/hr IV .Q9H12M [facility] Insulin Human Lispro (Insulin Lispro (Humalog) 100 Unit/Ml 10 Ml Vl) 0 unit SQ Q6HR [facility]; Protocol Last Admin: 12/07/24 17:08 Dose: 4 unit Levetiracetam (Levetiracetam Iv 500 Mg/5 Ml Vial) 1,000 mg IVP Q12HR [facility] Levothyroxine Sodium (Levothyroxine Ivp 100 Mcg/5 Ml Vial) 25 mcg IV DAILY [facility] Lisinopril (Lisinopril 5 Mg Tab) 5 mg PO DAILY [facility] Last Admin: 12/07/24 08:57 Dose: Not Given Loperamide HCl (Loperamide 2 Mg Cap) 2 mg PO DAILY PRN PRN Reason: Loose Stool Magnesium Hydroxide (Magnesium Hydroxide 2,400 Mg/30 Ml Cup) 2,400 mg PO Q48H PRN PRN Reason: Constipation Naloxone HCl (Naloxone 0.4 Mg/Ml 1 Ml Vial) 0.2 mg IV Q2M PRN PRN Reason: Opioid Reversal Oxybutynin Chloride (Oxybutynin Xl 5 Mg Tab.Er.24) 5 mg PO DAILY [facility] Last Admin: 12/07/24 08:56 Dose: Not Given Petrolatum (Zinc Oxide Paste (Z-Guard) 1 Applic) 1 applic TOPICAL Q2HR PRN; Protocol PRN Reason: Wound Healing Polyethylene Glycol (Polyethylene Glycol 3350 17 Gm Powd.Pack) 17 gm PO DAILY [facility] Last Admin: 12/07/24 08:56 Dose: Not Given Psyllium Hydrophilic Mucilloid (Psyllium Husk 100% 6 Gm Packet) 6 gm PO DAILY [facility] Last Admin: 12/07/24 08:56 Dose: Not Given Senna/Docusate Sodium (Sennosides-Docusate Sodium 1 Each Tab) 1 each PO BID [facility] Last Admin: 12/07/24 08:56 Dose: Not Given Sodium Biphosphate/Sodium Phosphate (Na Phos,M-B/Na Phos,Di-Ba 133 Ml Enema) 133 ml RECTAL DAILY PRN PRN Reason: Constipation Vancomycin HCl (Vancomycin 125 Mg Capsule) 125 mg PO QID [facility]; Protocol Last Admin: 12/07/24 17:04 Dose: Not Given On examination: VITAL SIGNS: [98, 62, 32, 150 twice daily, 96% room] GENERAL APPEARANCE: BMI 28.1, laying in bed. Lethargic. HEENT: Normal external appearance of nose and ear. Oral cavity normal EYES: Pupils equal. Conjunctiva normal. Nystagmus to the right and some vertically NECK: JVD not raised. Mass not palpable. RESPIRATORY: Respiratory effort normal. Lungs clear to auscultation. CARDIOVASCULAR: First and second sounds normal. No edema. ABDOMEN: Soft. Liver and spleen not palpable. No tenderness. No mass palpable. PSYCHIATRY: Lethargic. Not following commands INVESTIGATIONS, reviewed in the clinical context: C. difficile stool PCR: Negative December 07: White count 27.8 hemoglobin 12.6 platelets are 87 sodium 152 potassium 4 BUN 28 creatinine 0.63. Glucose 245 EEG [December 06]: Background slowing suggestive of encephalopathy. No epileptiform activity MRI brain: Nonspecific chronic changes Assessment plan: - Altered mentation. This appears to be combination of metabolic encephalopathy and possibly delirium. Note patient's creatinine was 1.6 i upon presentation which has now come down to normal. This is 1 contributing factor. Also note that patient was on Neurontin and Depakote. Which she has not had for 4 days. This could be contributing some element of seizures. Patient was started on Keppra and Depakote IV today by neurology. Seizures from withdrawal from Neurontin and Depakote could be contributing. Also patient has metabolic acidosis. Note that patient was on Jardiance. Will DC the same. Start the patient on sodium bicarbonate drip. - Leukocytosis. With abnormal differentiation. Initially patient had a predominant lymphocytes. Now neutrophils ID is on the case. Will get opinion from hematology. - Acute diarrhea. Stool C. difficile PCR negative Stop oral vancomycin - Essential hypertension As patient not able to take oral medications. Will add Catapres patch 0.1 mg. - Diabetes mellitus type 2, uncontrolled hyperglycemia Will follow Accu-Cheks closely. Get that patient not eating. Patient also is getting potassium with D5W. Follow with sliding scale insulin Hold off Farxiga for now. Hold off oral hypoglycemics. Add Lantus 16 units subcu at night - GERD Changed to IV Pepcid - Hypothyroid Changed to IV Synthroid 25 mcg daily - Chronic urine incontinence Ditropan XL 5 mg a day. - Acute kidney injury possibly ATN presentation.: Resolved Admission creatinine was 1.6. Now down to 0.63 - Hypernatremia due to fluid deficit. Sodium up to 152 Increase IV fluids - Chronic blindness can only perceive light - Essential tremors, history of - DNR
[2024-12-07] MEDS: DEXTROSE 5% IN WATER 1,000 ML with SODIUM BICARB (1 MEQ/ML) 150 ML IV SCH (18:31)
[2024-12-07] MEDS: VALPROATE SODIUM 1,000 MG in SODIUM CHLORIDE 0.9% 50 ML IVPB STA (18:31)
[2024-12-07] MEDS: cloNIDine 0.1 MG/24HR PATCH TRANSDERM SCH (18:37)
[2024-12-07] MEDS: LEVOTHYROXINE IVP 100 MCG/5 ML VIAL IV SCH (19:00)
[2024-12-07 20:20] LABS: Glucose,Whole Blood 181 mg/dL (70-110)
[2024-12-07] MEDS: levETIRAcetam IV 500 MG/5 ML VIAL IVP SCH (20:44)
[2024-12-07] MEDS: FAMOTIDINE 20 MG/2 ML VIAL IV SCH (20:45)
[2024-12-07] MEDS: INSULIN GLARGINE (LANTUS) 100 UNIT/ML SYR SQ SCH (20:54)
[2024-12-07] MEDS: VALPROATE SODIUM 500 MG in SODIUM CHLORIDE 0.9% 100 ML IVPB SCH (20:54)
--- NOTE | 2024-12-07 22:16 | P.PN ---
Subjective Progress Note Date: 12/07/24 Principal diagnosis: Reason for follow-up is leukocytosis/infection Patient is a 69-year-old female with a past medical history significant for type 2 diabetes mellitus hypertension hyperlipidemia hypothyroidism and snf resident patient has been sent to the hospital from the [facility] concerning for altered mental status also found to be lethargic patient did have elevated white count positive UA prompted this consultation. On today's evaluation that is 12/07/2024,the patient remains to be afebrile, patient is on room air not requiring supplemental oxygen patient remains to be lethargic and does not provide any history though does not seem to be any distress no vomiting has been reported diarrhea has slowed down. Patient white count is down to 27.85 creatinine 0.63 stool for C. difficile has been negative blood culture negative urine is negative Objective - Vital Signs Vital signs: Vital Signs Temp 98.8 F 12/07/24 12:15 Pulse 82 12/07/24 12:15 Resp 36 H 12/07/24 12:15 BP 153/72 12/07/24 12:15 Pulse Ox 98 12/07/24 12:15 FiO2 Intake & Output 12/06/24 12/07/24 12/07/24 18:59 06:59 18:59 Intake Total 20 Output Total 900 525 400 Balance -900 -525 -380 Weight 79 kg Intake: IV 20 Invasive Line 1 10 Invasive Line 2 10 Output: Urine 900 525 400 Other: Voiding Method Indwelling Catheter Indwelling Catheter Indwelling Catheter # Voids 1 # Bowel Movements 1 1 - Exam GENERAL DESCRIPTION: An elderly female lying in bed in no distress RESPIRATORY SYSTEM: Unlabored breathing , decreased breath sounds at bases HEART: S1 S2 regular rate and rhythm , ABDOMEN: Soft , no tenderness - Labs CBC & Chem 7: 12/07/24 07:12 12/07/24 07:12 Labs: Abnormal Lab Results - Last 24 Hours (Table) 12/06/24 12/07/24 12/07/24 Range/Units 17:49 00:08 06:30 WBC (4.50-10.00) 10*3/uL MPV (9.5-12.2) fL Immature Gran # (0.00-0.04) 10*3/uL Neutrophils # (Manual) (1.3-7.7) k/uL Monocytes # (Manual) (0-1.0) k/uL Metamyelocytes # (Man) (0) k/uL Myelocytes # (Manual) (0) k/uL Sodium (137-145) mmol/L Chloride (98-107) mmol/L Carbon Dioxide (22-30) mmol/L BUN (7-17) mg/dL Glucose (74-99) mg/dL POC Glucose (mg/dL) 228 H 202 H 229 H (70-110) mg/dL 12/07/24 12/07/24 12/07/24 Range/Units 07:12 07:12 11:48 WBC 27.85 H (4.50-10.00) 10*3/uL MPV 8.6 L (9.5-12.2) fL Immature Gran # 1.73 H (0.00-0.04) 10*3/uL Neutrophils # (Manual) 23.11 H (1.3-7.7) k/uL Monocytes # (Manual) 1.11 H (0-1.0) k/uL Metamyelocytes # (Man) 0.28 H (0) k/uL Myelocytes # (Manual) 0.28 H (0) k/uL Sodium 152 H (137-145) mmol/L Chloride 117 H (98-107) mmol/L Carbon Dioxide 20 L (22-30) mmol/L BUN 28 H (7-17) mg/dL Glucose 245 H (74-99) mg/dL POC Glucose (mg/dL) 237 H (70-110) mg/dL Microbiology - Last 24 Hours (Table) 12/05/24 17:00 CSF Gram Stain - Preliminary Cerebral Spinal Fluid CSF Culture - Preliminary 12/03/24 10:25 Blood Culture - Preliminary Blood Assessment and Plan (1) UTI (urinary tract infection) Current Visit: Yes Status: Acute Code(s): N39.0 - URINARY TRACT INFECTION, SITE NOT SPECIFIED SNOMED Code(s): 42163497 (2) Leukocytosis Current Visit: Yes Status: Acute Code(s): D72.829 - ELEVATED WHITE BLOOD CELL COUNT, UNSPECIFIED SNOMED Code(s): 822767982 (3) Diarrhea Current Visit: Yes Status: Acute Code(s): R19.7 - DIARRHEA, UNSPECIFIED SNOMED Code(s): 74593093 Plan: 1patient presented to hospital with sepsis in this patient who did have hypotension requiring fluid and pressor support patient also have significant elevated white count elevated lactic acid medically for SIRS/sepsis source is likely urinary patient also have significant stool burden on the CT but did not mention evidence of colitis or diverticulitis and no need for further enteric gram-negative and less likely gram positive sylvester 2-patient is been evaluated by neurology patient did have an MRI that was negative for any acute infarct or bleed she also have an LP not suggestive of encephalitis or meningitis 3patient did have negative stool for C. difficile including both EIA and PCR 4-patient white count is trending down to continue Zosyn oral vancomycin to be discontinued plan of care discussed with the admitting physician would benefit from a CT of abdominal pelvis with oral contrast when the patient is more awake and able to drink contrast to rule out any intra-abdominal pathology Dictation was produced using [employer] dictation software. please excuse any grammatical, word or spelling errors. Time with Patient: Less than 30
[2024-12-08 01:01] LABS: Glucose,Whole Blood 205 mg/dL (70-110)
--- NOTE | 2024-12-08 03:05 | EEG ---
ELECTROENCEPHALOGRAM REPORT CLINICAL HISTORY: This is a 69-year-old woman who continues to have confusion with fixation of the right gaze to the right. The video EEG is obtained to evaluate for seizure epileptiform activity. RELEVANT MEDICATIONS: 1. Keppra. 2. Ativan. EEG TYPE: Routine 21-channel EEG with video using the 10/20 electrode placement system. DESCRIPTION: The background consists of [id number] voltage of 3-4 Hz activity and really intermixed with theta activity. There is no physiological stage 2 sleep architecture. There is no focal slowing. Interictal and ictal: There is sharp and slow waves over left parietal more than left occipital which can increase risk for seizure discharges. There is no seizure noted during the study. ACTIVATION PROCEDURE: Photic stimulation and hyperventilation are not performed. CLINICAL INTERPRETATION: This is an abnormal routine EEG. The background slowing is suggestive of severe encephalopathy. There is epileptiform discharges over the left parietal more than occipital which can increase risk for seizure. Otherwise, there is no focal slowing, seizure noted during the study. Clinical correlation is recommended. MMADEOLA / FREDI: [id number] / [id number]
[2024-12-08 06:15] LABS: Glucose,Whole Blood 294 mg/dL (70-110)
[2024-12-08 06:26] LABS: Glucose,Whole Blood 247 mg/dL (70-110)
[2024-12-08 07:20] LABS: HCT 37.0 % (37.2-46.3); HGB 12.0 g/dL (12.0-15.0); MCH 29.6 pg (27.0-32.0); MCHC 32.4 g/dL (32.0-37.0); MCV 91.1 fL (80.0-97.0); Platelet Count 363 10*3/uL (140-440); RBC 4.06 10*6/uL (4.10-5.20); RDW 14.1 % (11.5-14.5); WBC 22.60 10*3/uL (4.50-10.00)
[2024-12-08 07:39] LABS: ALT 15 U/L (4-34); AST 19 U/L (14-36); African American GFR (CKD) >90 (>60 ml/min/1.73 sqM); Albumin 2.6 g/dL (3.5-5.0); Alkaline Phosphatase 147 U/L (38-126); Anion Gap 8 mmol/L; Blood Urea Nitrogen 18 mg/dL (7-17); Calcium 8.6 mg/dL (8.4-10.2); Carbon Dioxide 31 mmol/L (22-30); Chloride 113 mmol/L (98-107); Glucose 258 mg/dL (74-99); Non-African American GFR(CKD) >90 (>60 ml/min/1.73 sqM); Potassium 3.4 mmol/L (3.5-5.1); Sodium 152 mmol/L (137-145); Total Protein 5.5 g/dL (6.3-8.2)
[2024-12-08 08:23] LABS: Anisocytosis (M) Present; Hypochromasia (M) Present; Lymphocytes # (M) 2.26 k/uL (1.0-4.8); Metamyelocytes # (M) 0.23 k/uL (0); Monocytes # (M) 1.36 k/uL (0-1.0); Myelocytes # (M) 0.23 k/uL (0); Neutrophils # (M) 18.76 k/uL (1.3-7.7); Neutrophils % (M) 83 %; Poikilocytosis (M) Present; Total Cells Counted 200
[2024-12-08 09:15] LABS: T4, Free (Free Thyroxine) 2.37 ng/dL (0.78-2.19)
[2024-12-08 11:50] LABS: Glucose,Whole Blood 195 mg/dL (70-110)
--- NOTE | 2024-12-08 11:58 | P.CONS ---
History of Present Illness - Reason for Consult Consult date: 12/08/24 Leukocytosis with left shift - History of Present Illness The patient is a 69-year-old white female, with multiple medical problems. She is an ECF resident. The patient is legally blind. Information as to her reason for being long-term ECF resident was not available. The patient herself was unable to provide history at the time of the examination, due to being obtunded. The patient is apparently oriented x 3 and alert, at baseline. There had been a change in her health, with decreased appetite, nausea and vomiting, as well as increasing lethargy and weakness over 24 hours, leading to her being brought to the ER. The patient appeared to have SIRS, with high WBC, hypotension and tachycardia. She was started empirically on antibiotics. Her UA was significantly abnormal and it was felt that she likely had sepsis related to UTI. Patient was also having diarrhea. The patient has continued to be lethargic with poor responsiveness, and a lumbar puncture has also been performed for further workup, with blood and urine culture being negative so far. Stool studies were also negative. At the time of admission her WBC was in the low 40,000 range. It has steadily declined, into the low 20,000 range. Differential shows predominant neutrophilia, but there is a mild left shift, with immature granulocytes, myelocytes and metamyelocytes seen. Consult was therefore placed for further evaluation and recommendation. Patient's hemoglobin and platelets were normal. Review of multiple labs going back to 2019 has shown intermittent WBC elevation, typically mild to moderate, due to neutrophilia alternating with normal counts. CT brain/MRI brain did not show any acute changes, with evidence of chronic mi crovascular disease seen. Chest x-ray and CT abdomen pelvis were negative for any evidence of infection. The latter showed significant retained stool in the distal bowel. Review of Systems Patient unable to contribute, due to mental status. Review of systems therefore obtained from EMR and review of other physician notes. Constitutional: Reports weakness Eyes: bilateral decreased vision Ears: deny: decreased hearing Ears, nose, mouth and throat: Denies headache, Denies sore throat Cardiovascular: Denies chest pain, Denies shortness of breath Respiratory: Denies cough Gastrointestinal: Reports diarrhea, Reports nausea, Reports vomiting Genitourinary: Reports as per HPI Menstruation: Reports postmenopausal Musculoskeletal: Reports muscle weakness Integumentary: Denies pruritus, Denies rash Neurological: Reports as per HPI Psychiatric: Reports as per HPI Endocrine: Reports fatigue, Reports high blood sugars Hematologic/Lymphatic: Reports as per HPI 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, 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 Past Surgical History: No Surgical Hx Reported Past Anesthesia/Blood Transfusion Reactions: No Reported Reaction Past Psychological History: Anxiety Smoking Status: Never smoker Past Alcohol Use History: None Reported Past Drug Use History: None Reported - Past Family History Brother(s) Additional Family Medical History / Comment(s): 2 brothers , 1 in [place], 1 in [place] Medications and Allergies Home Medications Medication Instructions Recorded Confirmed Type Aspirin [Adult Low Dose Aspirin EC] 81 mg PO DAILY 10/19/18 12/03/24 History Levothyroxine Sodium [Synthroid] 25 mcg PO DAILY 10/19/18 12/03/24 History Multivitamins, Thera [Multivitamin 1 tab PO DAILY 10/19/18 12/03/24 History (formulary)] Oxybutynin Xl [Ditropan Xl] 5 mg PO DAILY 10/19/18 12/03/24 History Simvastatin [Zocor] 20 mg PO HS 10/19/18 12/03/24 History sitaGLIPtin PHOS/metFORMIN HCL 1 tab PO DAILY 10/19/18 12/03/24 History [Janumet Xr 100-1,000 mg Tablet] ALPRAZolam [Xanax] 0.5 mg PO TID 12/03/24 12/03/24 History Acetaminophen Tab [Tylenol] 650 mg PO Q4H PRN 12/03/24 12/03/24 History Benzocaine Gum 20% 1 applic DENTAL TID PRN 12/03/24 12/03/24 History Chlorhexidine Gluconate [Peridex] 15 ml PO BID 12/03/24 12/03/24 History Cholecalciferol (Vitamin D3) 75 mcg PO DAILY 12/03/24 12/03/24 History [Vitamin D3 (3000 Iu)] Cranberry 425mg Capsule 425 mg PO BID 12/03/24 12/03/24 History DULoxetine HCL [Cymbalta] 60 mg PO DAILY 12/03/24 12/03/24 History Dextromethorphan HBr/Quinidine 1 cap PO DAILY 12/03/24 12/03/24 History [Nuedexta 20-10 mg Capsule] Empagliflozin [Jardiance] 10 mg PO DAILY 12/03/24 12/03/24 History Gabapentin [Neurontin] 300 mg PO BID 12/03/24 12/03/24 History HYDROcodone/APAP 10-325MG [[place] 1 tab PO Q4H 12/03/24 12/03/24 History 10-325] Ibuprofen [Motrin] 400 mg PO DAILY PRN 12/03/24 12/03/24 History Insulin Degludec [Tresiba] 20 units SQ BID 12/03/24 12/03/24 History Loperamide [Imodium] 2 mg PO DIRECTED PRN 12/03/24 12/03/24 History Loratadine [Claritin] 10 mg PO DAILY 12/03/24 12/03/24 History Mag Hydrox/Aluminum Hyd/Simeth 10 ml PO Q4H PRN 12/03/24 12/03/24 History [Mylanta Maximum Strength Liq] Magic Butt Paste 1 applic TOPICAL BID 12/03/24 12/03/24 History Magnesium Hydroxide [Milk of 7,200 mg PO Q48H PRN 12/03/24 12/03/24 History Magnesia Concentrate] Melatonin 5 mg PO HS 12/03/24 12/03/24 History Menthol [Biofreeze] 1 applic TOPICAL BID PRN 12/03/24 12/03/24 History Menthol [Biofreeze] 1 applic TOPICAL Q6H PRN 12/03/24 12/03/24 History Na Phos,M-B/Na Phos,Di-Ba [Fleet 133 ml RECTAL DAILY PRN 12/03/24 12/03/24 History Adult] OLANZapine [ZyPREXA] 5 mg PO HS 12/03/24 12/03/24 History Omeprazole 20 mg PO DAILY 12/03/24 12/03/24 History Psyllium Husk (with Sugar) 1 tbsp PO DAILY 12/03/24 12/03/24 History [Metamucil Powder] Sennosides/Docusate Sodium 1 tab PO BID 12/03/24 12/03/24 History [Senna-S 8.6-50 mg Tablet] Sodium Chloride [Saline Nasal Mist] 2 spray EA NOSTRIL Q8H PRN 12/03/24 12/03/24 History Valproic Acid Oral Soln [Depakene 250 mg PO Q6H 12/03/24 12/03/24 History Syrup] bisacodyL [Dulcolax] 10 mg RECTAL DAILY PRN 12/03/24 12/03/24 History buPROPion XL [Wellbutrin XL] 150 mg PO DAILY 12/03/24 12/03/24 History diphenhydrAMINE [Benadryl] 50 mg PO Q6H PRN 12/03/24 12/03/24 History guaiFENesin SYRUP 100MG/5ML 200 mg PO Q4H PRN 12/03/24 12/03/24 History [Robitussin] lisinopriL [Zestril] 5 mg PO DAILY 12/03/24 12/03/24 History polyethylene glycoL 3350 [Miralax] 17 gm PO DAILY 12/03/24 12/03/24 History rOPINIRole HCL [Requip] 1 mg PO HS 12/03/24 12/03/24 History Allergies Allergy/AdvReac Type Severity Reaction Status Date / Time sulfamethoxazole Allergy Unknown Verified 12/03/24 14:53 [From Bactrim] trimethoprim [From Bactrim] Allergy Unknown Verified 12/03/24 14:53 Physical Exam Vitals: Vital Signs Temp Pulse Resp BP Pulse Ox 12/08/24 08:00 98.7 F 77 40 H 165/77 97 12/08/24 03:16 98.5 F 70 32 H 152/75 98 12/07/24 23:02 98.8 F 76 32 H 152/76 96 12/07/24 20:29 98.2 F 76 30 H 152/74 99 12/07/24 17:00 98 F 62 32 H 150/80 96 12/07/24 12:15 98.8 F 82 36 H 153/72 98 Intake and Output 12/07/24 12/08/24 12/08/24 22:59 06:59 14:59 Intake Total 30 1230 20 Output Total 250 450 525 Balance -220 780 -505 Intake: IV 30 30 20 Invasive Line 1 10 Invasive Line 3 20 20 10 Invasive Line 4 10 10 Intake, IV Titration 1200 Amount Dextrose 5% in Water 1, 1000 000 ml @ 150 mls/hr IV . Q7H40M NAM with Sodium Bicarb (1 Meq/ml) 150 ml Rx#:[id number] Piperacillin-Tazobactam 3 100 .375 gm In Sodium Chloride 0.9% 100 ml @ 25 mls/hr IVPB Q8HR NAM Rx# :[id number] Valproate Sodium 500 mg 100 In Sodium Chloride 0.9% 100 ml @ 100 mls/hr IVPB Q12HR [facility] Rx#:[id number] Output: Urine 250 450 525 Other: Voiding Method Indwelling Catheter Indwelling Catheter Indwelling Catheter Weight 75.5 kg - Constitutional Obtunded, not arousable. General appearance: no acute distress - EENT Eyes: PERRLA - Neck Neck: no lymphadenopathy Thyroid: bilateral: normal size - Respiratory Respiratory: bilateral: CTA - Cardiovascular Tachycardia Rhythm: regular Heart sounds: normal: S1, S2 - Gastrointestinal General gastrointestinal: normal bowel sounds, soft - Integumentary Integumentary: normal - Neurologic Patient obtunded Appears to have bilateral foot drop Could not elicit reflexes at the knee or ankle - Musculoskeletal Musculoskeletal: generalized weakness - Psychiatric Obtunded Results CBC & Chem 7: 12/08/24 06:10 12/08/24 06:10 Labs: Abnormal Lab Results - Last 24 Hours (Table) 12/07/24 12/07/24 12/07/24 Range/Units 11:48 16:45 18:07 WBC (4.50-10.00) 10*3/uL RBC (4.10-5.20) 10*6/uL Hct (37.2-46.3) % MPV (9.5-12.2) fL Immature Gran # (0.00-0.04) 10*3/uL Neutrophils # (Manual) (1.3-7.7) k/uL Monocytes # (Manual) (0-1.0) k/uL Metamyelocytes # (Man) (0) k/uL Myelocytes # (Manual) (0) k/uL ABG pH 7.52 H (7.35-7.45) ABG pCO2 31 L (35-45) mmHg ABG pO2 66 L (83-108) mmHg ABG Total CO2 26 H (19-24) mmol/L Sodium (137-145) mmol/L Potassium (3.5-5.1) mmol/L Chloride (98-107) mmol/L Carbon Dioxide (22-30) mmol/L BUN (7-17) mg/dL Glucose (74-99) mg/dL POC Glucose (mg/dL) 237 H 209 H (70-110) mg/dL Alkaline Phosphatase (38-126) U/L Total Protein (6.3-8.2) g/dL Albumin (3.5-5.0) g/dL TSH (0.465-4.680) mIU/L Free T4 (0.78-2.19) ng/dL 12/07/24 12/08/24 12/08/24 Range/Units 20:18 00:59 06:10 WBC (4.50-10.00) 10*3/uL RBC (4.10-5.20) 10*6/uL Hct (37.2-46.3) % MPV (9.5-12.2) fL Immature Gran # (0.00-0.04) 10*3/uL Neutrophils # (Manual) (1.3-7.7) k/uL Monocytes # (Manual) (0-1.0) k/uL Metamyelocytes # (Man) (0) k/uL Myelocytes # (Manual) (0) k/uL ABG pH (7.35-7.45) ABG pCO2 (35-45) mmHg ABG pO2 (83-108) mmHg ABG Total CO2 (19-24) mmol/L Sodium (137-145) mmol/L Potassium (3.5-5.1) mmol/L Chloride (98-107) mmol/L Carbon Dioxide (22-30) mmol/L BUN (7-17) mg/dL Glucose (74-99) mg/dL POC Glucose (mg/dL) 181 H 205 H (70-110) mg/dL Alkaline Phosphatase (38-126) U/L Total Protein (6.3-8.2) g/dL Albumin (3.5-5.0) g/dL TSH 0.294 L (0.465-4.680) mIU/L Free T4 2.37 H (0.78-2.19) ng/dL 12/08/24 12/08/2425 Range/Units 06:10 06:10 06:14 WBC 22.60 H (4.50-10.00) 10*3/uL RBC 4.06 L (4.10-5.20) 10*6/uL Hct 37.0 L (37.2-46.3) % MPV 8.6 L (9.5-12.2) fL Immature Gran # 1.78 H (0.00-0.04) 10*3/uL Neutrophils # (Manual) 18.76 H (1.3-7.7) k/uL Monocytes # (Manual) 1.36 H (0-1.0) k/uL Metamyelocytes # (Man) 0.23 H (0) k/uL Myelocytes # (Manual) 0.23 H (0) k/uL ABG pH (7.35-7.45) ABG pCO2 (35-45) mmHg ABG pO2 (83-108) mmHg ABG Total CO2 (19-24) mmol/L Sodium 152 H (137-145) mmol/L Potassium 3.4 L (3.5-5.1) mmol/L Chloride 113 H (98-107) mmol/L Carbon Dioxide 31 H (22-30) mmol/L BUN 18 H (7-17) mg/dL Glucose 258 H (74-99) mg/dL POC Glucose (mg/dL) 294 H (70-110) mg/dL Alkaline Phosphatase 147 H (38-126) U/L Total Protein 5.5 L (6.3-8.2) g/dL Albumin 2.6 L (3.5-5.0) g/dL TSH (0.465-4.680) mIU/L Free T4 (0.78-2.19) ng/dL 12/08/24 Range/Units 06:25 WBC (4.50-10.00) 10*3/uL RBC (4.10-5.20) 10*6/uL Hct (37.2-46.3) % MPV (9.5-12.2) fL Immature Gran # (0.00-0.04) 10*3/uL Neutrophils # (Manual) (1.3-7.7) k/uL Monocytes # (Manual) (0-1.0) k/uL Metamyelocytes # (Man) (0) k/uL Myelocytes # (Manual) (0) k/uL ABG pH (7.35-7.45) ABG pCO2 (35-45) mmHg ABG pO2 (83-108) mmHg ABG Total CO2 (19-24) mmol/L Sodium (137-145) mmol/L Potassium (3.5-5.1) mmol/L Chloride (98-107) mmol/L Carbon Dioxide (22-30) mmol/L BUN (7-17) mg/dL Glucose (74-99) mg/dL POC Glucose (mg/dL) 247 H (70-110) mg/dL Alkaline Phosphatase (38-126) U/L Total Protein (6.3-8.2) g/dL Albumin (3.5-5.0) g/dL TSH (0.465-4.680) mIU/L Free T4 (0.78-2.19) ng/dL Microbiology - Last 24 Hours (Table) 12/05/24 17:00 CSF Gram Stain - Preliminary Cerebral Spinal Fluid CSF Culture - Preliminary Chest x-ray: report reviewed CT scan - abdomen: report reviewed CT Scan - head: report reviewed CT scan - pelvis: report reviewed MRI - head: report reviewed Assessment and Plan (1) Leukocytosis Narrative/Plan: At this time this appears to be a benign reactive process. The patient does have a mild left shift. However this can be seen transiently in case of any major acute inflammatory process, especially if there is some diminished marrow function/suppression at baseline even if that is subclinical. Of note, the patient is on Depakote - Therefore at this time, the clinical possibility of an underlying significant bone marrow process is felt to be quite low. It is expected that her differential will normalize as her acute condition resolves. We will continue to monitor for the same. If there is persistent/progressive abnormality, spite resolution of her acute process, then further investigations such as biomarker testing and bone marrow can be considered. - The patient's labs, dating back to 2019, does not show any evidence of a specific hematologic abnormality. She has had some mild leukocytosis intermittently, that appears to be likely due to reactive processes at that time, as these were transient with normal differentials Current Visit: Yes Status: Acute Code(s): D72.829 - ELEVATED WHITE BLOOD CELL COUNT, UNSPECIFIED SNOMED Code(s): 098053873 Plan: Defer to the admitting service and other consultants for management of her multiple other medical problems.
--- NOTE | 2024-12-08 12:53 | P.PN ---
Subjective Progress Note Date: 12/08/24 Principal diagnosis: Patient seen and examined at bedside today. She is still unresponsive with right gaze fixation and does not follow commands. Blood pressure today is 167/74.. White count decreased to 22.60 and sodium is 152 Repeat EEG background slowing of severe encephalopathy, epileptiform discharges over the left parietal more than occipital which can increase risk for seizure, no focal slowing/ seizure noted during the study Objective - Vital Signs Vital signs: Vital Signs Temp 98.6 F 12/08/24 12:44 Pulse 71 12/08/24 12:44 Resp 32 H 12/08/24 12:44 BP 167/74 12/08/24 12:44 Pulse Ox 100 12/08/24 12:44 FiO2 Intake & Output 12/07/24 12/08/24 12/08/24 18:59 06:59 18:59 Intake Total 20 1260 20 Output Total 650 450 525 Balance -630 810 -505 Weight 79 kg 75.5 kg Intake: IV 20 60 20 Invasive Line 1 10 10 Invasive Line 2 10 Invasive Line 3 40 10 Invasive Line 4 10 10 Intake, IV Titration 1200 Amount Dextrose 5% in Water 1, 1000 000 ml @ 150 mls/hr IV . Q7H40M NAM with Sodium Bicarb (1 Meq/ml) 150 ml Rx#:[id number] Piperacillin-Tazobactam 3 100 .375 gm In Sodium Chloride 0.9% 100 ml @ 25 mls/hr IVPB Q8HR NAM Rx# :[id number] Valproate Sodium 500 mg 100 In Sodium Chloride 0.9% 100 ml @ 100 mls/hr IVPB Q12HR [facility] Rx#:[id number] Output: Urine 650 450 525 Other: Voiding Method Indwelling Catheter Indwelling Catheter Indwelling Catheter # Bowel Movements 1 - Exam General: no distress, lying in bed On general examination, there is no carotid bruit or murmur, S1-S2 audible. Chest is clear on consultation. Abdomen is soft nontender. No peripheral edema. Neuro: does not respond to questions rightward gaze deviation with horizontal nystagmus, stiff and rigid neck, Face is symmetric Unable to test muscle strength Deep tendon reflexes are symmetric 1 at the biceps, brachioradialis, knees and plantars indeterminate - Labs CBC & Chem 7: 12/08/24 06:10 12/08/24 06:10 Labs: Abnormal Lab Results - Last 24 Hours (Table) 12/07/24 12/07/24 12/07/24 Range/Units 16:45 18:07 20:18 WBC (4.50-10.00) 10*3/uL RBC (4.10-5.20) 10*6/uL Hct (37.2-46.3) % MPV (9.5-12.2) fL Immature Gran # (0.00-0.04) 10*3/uL Neutrophils # (Manual) (1.3-7.7) k/uL Monocytes # (Manual) (0-1.0) k/uL Metamyelocytes # (Man) (0) k/uL Myelocytes # (Manual) (0) k/uL ABG pH 7.52 H (7.35-7.45) ABG pCO2 31 L (35-45) mmHg ABG pO2 66 L (83-108) mmHg ABG Total CO2 26 H (19-24) mmol/L Sodium (137-145) mmol/L Potassium (3.5-5.1) mmol/L Chloride (98-107) mmol/L Carbon Dioxide (22-30) mmol/L BUN (7-17) mg/dL Glucose (74-99) mg/dL POC Glucose (mg/dL) 209 H 181 H (70-110) mg/dL Alkaline Phosphatase (38-126) U/L Total Protein (6.3-8.2) g/dL Albumin (3.5-5.0) g/dL TSH (0.465-4.680) mIU/L Free T4 (0.78-2.19) ng/dL 12/08/24 12/08/24 12/08/24 Range/Units 00:59 06:10 06:10 WBC 22.60 H (4.50-10.00) 10*3/uL RBC 4.06 L (4.10-5.20) 10*6/uL Hct 37.0 L (37.2-46.3) % MPV 8.6 L (9.5-12.2) fL Immature Gran # 1.78 H (0.00-0.04) 10*3/uL Neutrophils # (Manual) 18.76 H (1.3-7.7) k/uL Monocytes # (Manual) 1.36 H (0-1.0) k/uL Metamyelocytes # (Man) 0.23 H (0) k/uL Myelocytes # (Manual) 0.23 H (0) k/uL ABG pH (7.35-7.45) ABG pCO2 (35-45) mmHg ABG pO2 (83-108) mmHg ABG Total CO2 (19-24) mmol/L Sodium (137-145) mmol/L Potassium (3.5-5.1) mmol/L Chloride (98-107) mmol/L Carbon Dioxide (22-30) mmol/L BUN (7-17) mg/dL Glucose (74-99) mg/dL POC Glucose (mg/dL) 205 H (70-110) mg/dL Alkaline Phosphatase (38-126) U/L Total Protein (6.3-8.2) g/dL Albumin (3.5-5.0) g/dL TSH 0.294 L (0.465-4.680) mIU/L Free T4 2.37 H (0.78-2.19) ng/dL 12/08/24 12/08/24 12/08/24 Range/Units 06:10 06:14 06:25 WBC (4.50-10.00) 10*3/uL RBC (4.10-5.20) 10*6/uL Hct (37.2-46.3) % MPV (9.5-12.2) fL Immature Gran # (0.00-0.04) 10*3/uL Neutrophils # (Manual) (1.3-7.7) k/uL Monocytes # (Manual) (0-1.0) k/uL Metamyelocytes # (Man) (0) k/uL Myelocytes # (Manual) (0) k/uL ABG pH (7.35-7.45) ABG pCO2 (35-45) mmHg ABG pO2 (83-108) mmHg ABG Total CO2 (19-24) mmol/L Sodium 152 H (137-145) mmol/L Potassium 3.4 L (3.5-5.1) mmol/L Chloride 113 H (98-107) mmol/L Carbon Dioxide 31 H (22-30) mmol/L BUN 18 H (7-17) mg/dL Glucose 258 H (74-99) mg/dL POC Glucose (mg/dL) 294 H 247 H (70-110) mg/dL Alkaline Phosphatase 147 H (38-126) U/L Total Protein 5.5 L (6.3-8.2) g/dL Albumin 2.6 L (3.5-5.0) g/dL TSH (0.465-4.680) mIU/L Free T4 (0.78-2.19) ng/dL 12/08/24 Range/Units 11:46 WBC (4.50-10.00) 10*3/uL RBC (4.10-5.20) 10*6/uL Hct (37.2-46.3) % MPV (9.5-12.2) fL Immature Gran # (0.00-0.04) 10*3/uL Neutrophils # (Manual) (1.3-7.7) k/uL Monocytes # (Manual) (0-1.0) k/uL Metamyelocytes # (Man) (0) k/uL Myelocytes # (Manual) (0) k/uL ABG pH (7.35-7.45) ABG pCO2 (35-45) mmHg ABG pO2 (83-108) mmHg ABG Total CO2 (19-24) mmol/L Sodium (137-145) mmol/L Potassium (3.5-5.1) mmol/L Chloride (98-107) mmol/L Carbon Dioxide (22-30) mmol/L BUN (7-17) mg/dL Glucose (74-99) mg/dL POC Glucose (mg/dL) 195 H (70-110) mg/dL Alkaline Phosphatase (38-126) U/L Total Protein (6.3-8.2) g/dL Albumin (3.5-5.0) g/dL TSH (0.465-4.680) mIU/L Free T4 (0.78-2.19) ng/dL Microbiology - Last 24 Hours (Table) 12/05/24 17:00 CSF Gram Stain - Preliminary Cerebral Spinal Fluid CSF Culture - Preliminary Assessment and Plan Assessment: Acute encephalopathy,, rightward gaze deviation with nystagmus on right: Unsure exact etiology. Has hyperthryoidism which can cause encephalopathy. MRI Brain is negative for acute stroke or enhancement, CSF study is negative for meningoencephalitis. Had two EEG which were negative for seizure but showed left parietal discharge. She was placed on Keppra during this admission and was increased and resumed on her Valproic acid. Also rule out sepsis of unknown etiology leading to her symptoms. I did not appreciate any seizure during this study twice. Hyperthyroidism Hypernatremia, patient seems dehydrated Hypotensive on admission, now improved Leukocytosis, Unknown etiology, Signs of UTI on UA, urine culture negative, blood culture negative till date.CSF study is negative R/o cancer, oncology consulted Hypertension Hyperlipidemia Diabetes mellitus Plan: Brain MRI shows no evidence of intracranial mass, acute/subacute infarct MRI abdomen and placement nonspecific minimal early degenerative changes likely small vessel ischemic disease moderate to severe paranasal sinus disease with air-fluid level. Brain CT shows no acute intracranial process and nonspecific white matter changes likely secondary to chronic small vessel ischemic disease and paranasal sinus disease with air fluid levels. Lumbar puncture 12/05/24, CSF studies show clear appearance, RBC 4, glucose 71, protein 86 , Total nucleated cells 0. CSF culture and gram stain shows no growth EEG background slowing system of moderate to severe encephalopathy, no focal slowing/epileptiform discharge/seizure Repeat EEG background slowing. Of severe encephalopathy, epileptiform discharges over the left parietal more than occipital which can increase risk for seizure, no focal slowing/ seizure noted during the study Continue Keppra 1000 mg Q12HR Continue home Valproic acid 250mg every 6 hours but is on IV since is NPO because of her confusion. Ativan briefly improved her condition. Yesterday, I notified the primary team to consider transferring patient for snf EEG. So far she had two EEG which were negative for seizure but showed di scharges over the left parietal>occipital. Lactic acid 1.6 C. diff PCR and EIA is negative Patient started on bicarb drip per primary team Intially seemed like Urosepsis, talked to ID who has now ruled it out. Defer further investigation of leukocytosis and antibiotic/antivirals to ID and primary team. Oncology is consulted for leukocytosis. Obtain B12 and ammonia level Consider repeat MRI brain in case of no clinical improvement Recommend correction of thyroid to primary team. Dictation was produced using [employer] dictation software. please excuse any grammatical, word or spelling errors. Suzette Serna MD PGY-2 IM ADDENDUM: I personally reviewed the images and examined the patient. I agree with resident's assessment and plan. Anshu Torres M.D. Dr. Garza will resume neurology service tomorrow A.M. and then Dr. Baird will resume this Wednesday A.M. Time with Patient: Less than 30
[2024-12-08] MEDS: DEXTROSE 5%-0.45% NACL 1,000 ML IV SCH (14:20)
--- NOTE | 2024-12-08 15:51 | XR ---
EXAMINATION TYPE: XR chest 1V portable DATE OF EXAM: 12/08/2024 3:27 PM COMPARISON: Chest radiographs from 12/03/2024 CLINICAL INDICATION: Female, 69 years old with history of confirm NG tube placement; [facility] TECHNIQUE: XR chest 1V portable Frontal view of the chest. FINDINGS: Lungs/Pleura: There is no evidence of pleural effusion, focal consolidation, or pneumothorax. Pulmonary vascularity: Unremarkable. Heart/mediastinum: Cardiomediastinal silhouette is unremarkable. Musculoskeletal: No acute osseous pathology. Other findings: None Nasogastric tube in satisfactory position. IMPRESSION: 1. Nasogastric tube in satisfactory position. 2. No acute cardiopulmonary disease/process. [facility], , 12/08/2024 3:48 PM
[2024-12-08 17:12] LABS: Glucose,Whole Blood 208 mg/dL (70-110)
--- NOTE | 2024-12-08 17:24 | P.PN ---
Progress Note - Text Progress Note Date: 12/08/24 Patient is admitted with altered mentation. Normally awake alert. December 07: Patient pretty much in bed encephalopathic/delirious. Spoke to the nurse has not been taking medications or any food since December 04. Patient has multiple medications at home. She also does take Neurontin and valproic acid. EEG from yesterday did not show any seizure activity but findings of encephalopathy. Patient is also getting IV Zosyn. ID is following the patient has empirically the patient on antibiotic. ID suspects a source of UTI. Note CBC differential shows a predominant lymphocytes. Also note patient's creatinine was 1.6 on presentation now down to 0.63. That itself could be contributing to altered mentation initially. Per neurology patient be started on IV Keppra and IV Depakote. At this point for metabolic acidosis will start the patient on sodium bicarbonate drip. Will stop Farxiga also. Switch the patient following to IV: Pepcid, Synthroid,. Patient still has nystagmus more fluids right and a bit in the vertical direction. Not able to answer any questions. Also discussed with Dr. Benz from ID. Patient will need a CT scan of the abdomen when more awake. She had quite a bit of diarrhea yesterday. But her C. difficile is come back negative. Including PCR. Oral Vanco will be discontinued. Total time spent today about 50 minutes with over 30 minutes of discussion. December 08: Patient has been on a bicarbonate drip. Seems to have a mixed acid- alkalosis picture. Sodium remains 152. White count slowly coming down. Discussed with Dr. Mas from hematology. Will switch IV fluids to D5.45. Keep running at 150 cc an hour. Nystagmus present. Both vertical and horizontal. Sometimes rotational. Will increase Lantus to 26 units. Did open eyes to calling out her name. Bit more responsive compared to yesterday. Patient seems to be over replaced with Synthroid. She is only taking a small amount. This will be discontinued. NG tube ordered. Will start Glucerna shake 4 cans a day with free fluid. EEG from yesterday did show her epileptiform discharges over the left parietal. Patient has several metabolic reasons to explain her presentation right now. In addition she has had seizures, not having received few days of Neurontin and Depakote. Active Medications Al Hydroxide/Mg Hydroxide (Mag Hydrox/Al Hydrox/Simeth 30 Ml Cup) 10 ml PO Q4H PRN PRN Reason: GI Upset Atorvastatin Calcium (Atorvastatin 10 Mg Tab) 10 mg PO HS [facility] Last Admin: 12/07/24 20:43 Dose: Not Given Bisacodyl (Bisacodyl 10 Mg Supp) 10 mg RECTAL DAILY PRN PRN Reason: Constipation Clonidine HCl (Clonidine 0.1 Mg/24hr Patch) 1 patch TRANSDERM Q7D [facility] Last Admin: 12/07/24 18:37 Dose: 1 patch Dextrose/Water (Dextrose 50% Syringe 50 Ml) 25 ml IVP PER PROTOCOL PRN; Protocol PRN Reason: Hypoglycemia Last Admin: 12/05/24 06:24 Dose: 25 ml Dextrose/Water (Dextrose 50% Syringe 50 Ml) 50 ml IVP PER PROTOCOL PRN; Protocol PRN Reason: Hypoglycemia Famotidine (Famotidine 20 Mg/2 Ml Vial) 20 mg IV Q12HR [facility] Last Admin: 12/08/24 09:49 Dose: 20 mg Gabapentin (Gabapentin 300 Mg Cap) 300 mg PO BID [facility] Last Admin: 12/08/24 09:49 Dose: Not Given Guaifenesin (Guaifenesin Syrup 100mg/5ml 200 Mg/10 Ml Cup) 200 mg PO Q4H PRN PRN Reason: Cough Piperacillin Sod/Tazobactam (Sod 3.375 gm/ Sodium Chloride) 100 mls @ 25 mls/hr IVPB Q8HR [facility]; Protocol Last Admin: 12/08/24 09:48 Dose: 25 mls/hr Valproic Acid 500 mg/ Sodium (Chloride) 105 mls @ 100 mls/hr IVPB Q12HR [facility] Last Admin: 12/08/24 10:28 Dose: 100 mls/hr Dextrose/Sodium Chloride (Dextrose 5%-1/2ns Iv Soln) 1,000 mls @ 150 mls/hr IV .Q6H40M [facility] Last Admin: 12/08/24 14:20 Dose: 150 mls/hr Insulin Human Lispro (Insulin Lispro (Humalog) 100 Unit/Ml 10 Ml Vl) 0 unit SQ Q6HR [facility]; Protocol Last Admin: 12/08/24 12:42 Dose: 2 unit Levetiracetam (Levetiracetam Iv 500 Mg/5 Ml Vial) 1,000 mg IVP Q12HR [facility] Last Admin: 12/08/24 09:48 Dose: 1,000 mg Levothyroxine Sodium (Levothyroxine Ivp 100 Mcg/5 Ml Vial) 25 mcg IV DAILY [facility] Last Admin: 12/08/24 09:49 Dose: 25 mcg Lisinopril (Lisinopril 5 Mg Tab) 5 mg PO DAILY [facility] Last Admin: 12/08/24 09:49 Dose: Not Given Loperamide HCl (Loperamide 2 Mg Cap) 2 mg PO DAILY PRN PRN Reason: Loose Stool Magnesium Hydroxide (Magnesium Hydroxide 2,400 Mg/30 Ml Cup) 2,400 mg PO Q48H PRN PRN Reason: Constipation Naloxone HCl (Naloxone 0.4 Mg/Ml 1 Ml Vial) 0.2 mg IV Q2M PRN PRN Reason: Opioid Reversal Oxybutynin Chloride (Oxybutynin Xl 5 Mg Tab.Er.24) 5 mg PO DAILY [facility] Last Admin: 12/08/24 09:49 Dose: Not Given Petrolatum (Zinc Oxide Paste (Z-Guard) 1 Applic) 1 applic TOPICAL Q2HR PRN; Protocol PRN Reason: Wound Healing Polyethylene Glycol (Polyethylene Glycol 3350 17 Gm Powd.Pack) 17 gm PO DAILY [facility] Last Admin: 12/08/24 09:49 Dose: Not Given Psyllium Hydrophilic Mucilloid (Psyllium Husk 100% 6 Gm Packet) 6 gm PO DAILY [facility] Last Admin: 12/08/24 09:49 Dose: Not Given Senna/Docusate Sodium (Sennosides-Docusate Sodium 1 Each Tab) 1 each PO BID [facility] Last Admin: 12/08/24 09:49 Dose: Not Given Sodium Biphosphate/Sodium Phosphate (Na Phos,M-B/Na Phos,Di-Ba 133 Ml Enema) 133 ml RECTAL DAILY PRN PRN Reason: Constipation On examination: VITAL SIGNS: 98.4, 72, 36, 145 x 77, 98% room air GENERAL APPEARANCE: BMI 28.1, laying in bed. Lethargic. HEENT: Normal external appearance of nose and ear. Oral cavity normal EYES: Pupils equal. Conjunctiva normal. Nystagmus to the right and some vertically NECK: JVD not raised. Mass not palpable. RESPIRATORY: Respiratory effort normal. Lungs clear to auscultation. CARDIOVASCULAR: First and second sounds normal. No edema. ABDOMEN: Soft. Liver and spleen not palpable. No tenderness. No mass palpable. PSYCHIATRY: Lethargic. Not following commands Neurological: Vertical horizontal rotational nystagmus. Does sometimes opens her eyes to command. INVESTIGATIONS, reviewed in the clinical context: EEG [December 07] evidence of epileptiform activity December 08: White count 22.6 hemoglobin 12 platelets 363 sodium 152 potassium 3.4 bicarb 31 BUN 18 creatinine 0.55 procalcitonin 0.51 TSH 0.294 Free T4-2.37 C. difficile stool PCR: Negative December 07: White count 27.8 hemoglobin 12.6 platelets are 87 sodium 152 potassium 4 BUN 28 creatinine 0.63. Glucose 245 EEG [December 06]: Background slowing suggestive of encephalopathy. No epileptiform activity MRI brain: Nonspecific chronic changes Assessment plan: - Altered mentation. This appears to be combination of metabolic encephalopathy and possibly delirium.: Slow to respond Note patient's creatinine was 1.6 i upon presentation which has now come down to normal. This is 1 contributing factor. Also note that patient was on Neurontin and Depakote. Which she has not had for 4 days. This could be contributing some element of seizures. Patient was started on Keppra and Depakote IV today by neurology. Seizures from withdrawal from Neurontin and Depakote could be contributing. Also patient has metabolic acidosis. Note that patient was on Jardiance. Will DC the same. Start the patient on sodium bicarbonate drip. - Seizure activity likely from patient not able to take Neurontin and Depakote because of her clinical status. Started on IV Keppra and Depakote on December 07. - Leukocytosis. With abnormal differentiation. Initially patient had a predominant lymphocytes. Now neutrophils Gradually improving. Seen by hematology. No further intervention - Acute diarrhea. Stool C. difficile PCR negative: Resolved Stop oral vancomycin - Essential hypertension As patient not able to take oral medications.-Catapres patch 0.1 mg. - Diabetes mellitus type 2, uncontrolled hyperglycemia Will follow Accu-Cheks closely. Get that patient not eating. Patient also is getting potassium with D5W. Follow with sliding scale insulin Hold off Farxiga for now. Hold off oral hypoglycemics. Increase Lantus 26 units subcu at night - GERD Changed to IV Pepcid -Mixed metabolic acidosis and alkalosis. Now the latter Patient received sodium bicarbonate drip. Now switched over to D5.45 - Hypothyroid, with over replacement Stop Synthroid - Chronic urine incontinence Ditropan XL 5 mg a day. - Acute kidney injury possibly ATN presentation.: Resolved Admission creatinine was 1.6. Now down to 0.63 - Hypernatremia due to fluid deficit. Sodium up to 152: Slow to respond Change IV fluids to D5.45. 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 Stop Synthroid.
--- NOTE | 2024-12-08 19:38 | XR ---
EXAMINATION TYPE: XR chest 1V portable DATE OF EXAM: 12/08/2024 7:33 PM COMPARISON: Chest radiographs from 12/08/2024 TECHNIQUE: XR chest 1V portable Portable AP radiograph of the chest. CLINICAL INDICATION:Female, 69 years old with history of shortness of breath; FINDINGS: Patient is rotated which limits evaluation. Lungs/Pleura: There is no evidence of pleural effusion, focal consolidation, or pneumothorax. Pulmonary vascularity: Unremarkable. Heart/mediastinum: Cardiomediastinal silhouette is unremarkable. Musculoskeletal: No acute osseous pathology. Other findings: Cholecystectomy clips in the right upper quadrant. Lines/Tubes: Nasogastric tube with its distal tip and side-port projecting under the diaphragm and projecting over the gastric lumen. IMPRESSION: 1. No acute cardiopulmonary disease/process. 2. NG tube in satisfactory position. [facility], , 12/08/2024 7:35 PM
[2024-12-08] MEDS ORDERED: ATROPINE OPHTH SOLN 1% 5ML BTL SUBLINGUAL PRN (21:56)
[2024-12-08] MEDS ORDERED: HYDROmorphone 1 MG/ML 1 ML SYRINGE IVP PRN (21:56)
[2024-12-08] MEDS ORDERED: ONDANSETRON 4 MG/2 ML VIAL IVP PRN (21:56)
[2024-12-08] MEDS ORDERED: ACETAMINOPHEN SUPPOSITORY 650 MG SUPP RECTAL PRN (21:56)
[2024-12-08] MEDS ORDERED: SCOPOLAMINE 1 MG/72 HR PATCH TRANSDERM PRN (22:00)
[2024-12-08] MEDS: POTASSIUM BICARBONATE/CIT AC 20 MEQ TABLET.EFF PO ONE (22:33)
--- NOTE | 2024-12-08 22:56 | P.PN ---
Subjective Progress Note Date: 12/08/24 Principal diagnosis: Reason for follow-up is leukocytosis/infection Patient is a 69-year-old female with a past medical history significant for type 2 diabetes mellitus hypertension hyperlipidemia hypothyroidism and fdc resident patient has been sent to the hospital from the [facility] concerning for altered mental status also found to be lethargic patient did have elevated white count positive UA prompted this consultation. On today's evaluation that is 12/08/2024, the patient continues to be afebrile, the patient is on 3 L nasal oxygen and breathing comfortably, the Pt remains to be less responsive as she however she did respond to her name but did not provide any history no nausea vomiting or other changes reported by the nursing staff. Patient white count is down to 22.60 creatinine 0.55 progresses by an elevated Objective - Vital Signs Vital signs: Vital Signs Temp 98.7 F 12/08/24 08:00 Pulse 77 12/08/24 08:00 Resp 40 H 12/08/24 08:00 BP 165/77 12/08/24 08:00 Pulse Ox 97 12/08/24 08:00 FiO2 Intake & Output 12/07/24 12/08/24 12/08/24 18:59 06:59 18:59 Intake Total 20 1260 20 Output Total 650 450 525 Balance -630 810 -505 Weight 79 kg 75.5 kg Intake: IV 20 60 20 Invasive Line 1 10 10 Invasive Line 2 10 Invasive Line 3 40 10 Invasive Line 4 10 10 Intake, IV Titration 1200 Amount Dextrose 5% in Water 1, 1000 000 ml @ 150 mls/hr IV . Q7H40M NAM with Sodium Bicarb (1 Meq/ml) 150 ml Rx#:[id number] Piperacillin-Tazobactam 3 100 .375 gm In Sodium Chloride 0.9% 100 ml @ 25 mls/hr IVPB Q8HR NAM Rx# :[id number] Valproate Sodium 500 mg 100 In Sodium Chloride 0.9% 100 ml @ 100 mls/hr IVPB Q12HR NAM Rx#:[id number] Output: Urine 650 450 525 Other: Voiding Method Indwelling Catheter Indwelling Catheter Indwelling Catheter # Bowel Movements 1 - Exam GENERAL DESCRIPTION: An elderly female lying in bed in no distress RESPIRATORY SYSTEM: Unlabored breathing , decreased breath sounds at bases HEART: S1 S2 regular rate and rhythm , ABDOMEN: Soft , no tenderness - Labs CBC & Chem 7: 12/08/24 06:10 12/08/24 06:10 Labs: Abnormal Lab Results - Last 24 Hours (Table) 12/07/24 12/07/24 12/07/24 Range/Units 11:48 16:45 18:07 WBC (4.50-10.00) 10*3/uL RBC (4.10-5.20) 10*6/uL Hct (37.2-46.3) % MPV (9.5-12.2) fL Immature Gran # (0.00-0.04) 10*3/uL Neutrophils # (Manual) (1.3-7.7) k/uL Monocytes # (Manual) (0-1.0) k/uL Metamyelocytes # (Man) (0) k/uL Myelocytes # (Manual) (0) k/uL ABG pH 7.52 H (7.35-7.45) ABG pCO2 31 L (35-45) mmHg ABG pO2 66 L (83-108) mmHg ABG Total CO2 26 H (19-24) mmol/L Sodium (137-145) mmol/L Potassium (3.5-5.1) mmol/L Chloride (98-107) mmol/L Carbon Dioxide (22-30) mmol/L BUN (7-17) mg/dL Glucose (74-99) mg/dL POC Glucose (mg/dL) 237 H 209 H (70-110) mg/dL Alkaline Phosphatase (38-126) U/L Total Protein (6.3-8.2) g/dL Albumin (3.5-5.0) g/dL TSH (0.465-4.680) mIU/L Free T4 (0.78-2.19) ng/dL 12/07/24 12/08/24 12/08/24 Range/Units 20:18 00:59 06:10 WBC (4.50-10.00) 10*3/uL RBC (4.10-5.20) 10*6/uL Hct (37.2-46.3) % MPV (9.5-12.2) fL Immature Gran # (0.00-0.04) 10*3/uL Neutrophils # (Manual) (1.3-7.7) k/uL Monocytes # (Manual) (0-1.0) k/uL Metamyelocytes # (Man) (0) k/uL Myelocytes # (Manual) (0) k/uL ABG pH (7.35-7.45) ABG pCO2 (35-45) mmHg ABG pO2 (83-108) mmHg ABG Total CO2 (19-24) mmol/L Sodium (137-145) mmol/L Potassium (3.5-5.1) mmol/L Chloride (98-107) mmol/L Carbon Dioxide (22-30) mmol/L BUN (7-17) mg/dL Glucose (74-99) mg/dL POC Glucose (mg/dL) 181 H 205 H (70-110) mg/dL Alkaline Phosphatase (38-126) U/L Total Protein (6.3-8.2) g/dL Albumin (3.5-5.0) g/dL TSH 0.294 L (0.465-4.680) mIU/L Free T4 2.37 H (0.78-2.19) ng/dL 12/08/24 12/08/24 12/08/24 Range/Units 06:10 06:10 06:14 WBC 22.60 H (4.50-10.00) 10*3/uL RBC 4.06 L (4.10-5.20) 10*6/uL Hct 37.0 L (37.2-46.3) % MPV 8.6 L (9.5-12.2) fL Immature Gran # 1.78 H (0.00-0.04) 10*3/uL Neutrophils # (Manual) 18.76 H (1.3-7.7) k/uL Monocytes # (Manual) 1.36 H (0-1.0) k/uL Metamyelocytes # (Man) 0.23 H (0) k/uL Myelocytes # (Manual) 0.23 H (0) k/uL ABG pH (7.35-7.45) ABG pCO2 (35-45) mmHg ABG pO2 (83-108) mmHg ABG Total CO2 (19-24) mmol/L Sodium 152 H (137-145) mmol/L Potassium 3.4 L (3.5-5.1) mmol/L Chloride 113 H (98-107) mmol/L Carbon Dioxide 31 H (22-30) mmol/L BUN 18 H (7-17) mg/dL Glucose 258 H (74-99) mg/dL POC Glucose (mg/dL) 294 H (70-110) mg/dL Alkaline Phosphatase 147 H (38-126) U/L Total Protein 5.5 L (6.3-8.2) g/dL Albumin 2.6 L (3.5-5.0) g/dL TSH (0.465-4.680) mIU/L Free T4 (0.78-2.19) ng/dL 12/08/24 Range/Units 06:25 WBC (4.50-10.00) 10*3/uL RBC (4.10-5.20) 10*6/uL Hct (37.2-46.3) % MPV (9.5-12.2) fL Immature Gran # (0.00-0.04) 10*3/uL Neutrophils # (Manual) (1.3-7.7) k/uL Monocytes # (Manual) (0-1.0) k/uL Metamyelocytes # (Man) (0) k/uL Myelocytes # (Manual) (0) k/uL ABG pH (7.35-7.45) ABG pCO2 (35-45) mmHg ABG pO2 (83-108) mmHg ABG Total CO2 (19-24) mmol/L Sodium (137-145) mmol/L Potassium (3.5-5.1) mmol/L Chloride (98-107) mmol/L Carbon Dioxide (22-30) mmol/L BUN (7-17) mg/dL Glucose (74-99) mg/dL POC Glucose (mg/dL) 247 H (70-110) mg/dL Alkaline Phosphatase (38-126) U/L Total Protein (6.3-8.2) g/dL Albumin (3.5-5.0) g/dL TSH (0.465-4.680) mIU/L Free T4 (0.78-2.19) ng/dL Microbiology - Last 24 Hours (Table) 12/05/24 17:00 CSF Gram Stain - Preliminary Cerebral Spinal Fluid CSF Culture - Preliminary Assessment and Plan (1) UTI (urinary tract infection) Current Visit: Yes Status: Acute Code(s): N39.0 - URINARY TRACT INFECTION, SITE NOT SPECIFIED SNOMED Code(s): 71532018 (2) Leukocytosis Current Visit: Yes Status: Acute Code(s): D72.829 - ELEVATED WHITE BLOOD CELL COUNT, UNSPECIFIED SNOMED Code(s): 438958507 (3) Diarrhea Current Visit: Yes Status: Acute Code(s): R19.7 - DIARRHEA, UNSPECIFIED SNOMED Code(s): 44408055 Plan: 1patient presented to hospital with sepsis in this patient who did have hypotension requiring fluid and pressor support patient also have significant elevated white count elevated lactic acid medically for SIRS/sepsis source is likely urinary patient also have significant stool burden on the CT but did not mention evidence of colitis or diverticulitis and no need for further enteric gram-negative and less likely gram positive sylvester 2-patient is been evaluated by neurology patient did have an MRI that was negative for any acute infarct or bleed she also have an LP not suggestive of encephalitis or meningitis 3patient did have negative stool for C. difficile including both EIA and PCR 4-patient white count is trending down, down to 22,000 Pro-Ankit is mildly elevated patient will be treated with Zosyn hopefully if mentation improved and able to drink we will repeat his CT abdominal pelvis with oral contrast Dictation was produced using [employer] dictation software. please excuse any grammatical, word or spelling errors. Time with Patient: Less than 30
[2024-12-09 00:10] LABS: Glucose,Whole Blood 151 mg/dL (70-110)
[2024-12-09] MEDS: INSULIN GLARGINE (LANTUS) 100 UNIT/ML SYR SQ SCH (04:27)
[2024-12-09 06:08] LABS: Glucose,Whole Blood 159 mg/dL (70-110)
[2024-12-09 06:50] LABS: ALT 13 U/L (4-34); AST 18 U/L (14-36); African American GFR (CKD) >90 (>60 ml/min/1.73 sqM); Albumin 2.6 g/dL (3.5-5.0); Alkaline Phosphatase 107 U/L (38-126); Anion Gap 9 mmol/L; Blood Urea Nitrogen 15 mg/dL (7-17); Calcium 8.4 mg/dL (8.4-10.2); Carbon Dioxide 31 mmol/L (22-30); Chloride 109 mmol/L (98-107); Glucose 176 mg/dL (74-99); Non-African American GFR(CKD) >90 (>60 ml/min/1.73 sqM); Potassium 3.4 mmol/L (3.5-5.1); Sodium 149 mmol/L (137-145); Total Protein 5.3 g/dL (6.3-8.2)
--- NOTE | 2024-12-09 11:03 | P.PN ---
Subjective Progress Note Date: 12/09/24 The patient is a 69-year-old female who was seen in neurologic follow-up on December 09, 2024, in cross coverage for Dr. Anshu Torres, in collaboration with Korina Varela, via teleneurology. The patient's chart has been reviewed. For detailed history, please see Dr. Torres's original neurology consultation. The patient's nurse is present at the bedside today. She reports that the patient has been made "comfort care". The patient has been followed by neurology, for altered mental status and right gaze preference. There is concern for seizure. MRI of the brain is negative for acute process. EEG reve aled evidence of left parietal sharp waves. The patient has a history of seizure disorder. She was started on Keppra, in the emergency department and her home dose of Depakote was restarted following EEG. Objective - Vital Signs Vital signs: Vital Signs Temp 97.4 F L 12/08/24 19:41 Pulse 61 12/08/24 19:41 Resp 20 12/08/24 19:41 BP 131/69 12/08/24 19:41 Pulse Ox 100 12/08/24 19:41 FiO2 Intake & Output 12/08/24 12/09/24 12/09/24 18:59 06:59 18:59 Intake Total 20 Output Total 825 300 Balance -805 -300 Weight 75.5 kg Intake: IV 20 Invasive Line 3 10 Invasive Line 4 10 Output: Urine 825 300 Other: Voiding Method Indwelling Catheter Indwelling Catheter # Bowel Movements 1 - Exam General: The patient is reclining in the bed. She is well-nourished. She is in no obvious distress. HEENT: Head is atraumatic, normocephalic. Fundus not visualized. There is no scleral icterus. Mucous membranes are moist. Neurological examination Mental status: The patient does open her eyes to her name. Her eyes remain open for short. Time. Well verbal discussion is ongoing in the patient's room, she opens her eyes again. The patient does groan in response to noxious stimulation of the right foot. There is very slight withdrawal. There is no withdrawal of other extremities, in response to noxious stimulation. The patient follows no commands. The patient is nonverbal. Cranial nerves: Pupils are equal. There is evidence of rotational nystagmus. The patient has a right gaze preference. She is reportedly blind. There is no blink to visual threat. There is no obvious facial asymmetry. Other cranial nerves are unable to be assessed at this time. Motor: There is no spontaneous or purposeful movement - Labs CBC & Chem 7: 12/08/24 06:10 12/09/24 06:03 Labs: Abnormal Lab Results - Last 24 Hours (Table) 12/08/24 12/08/24 12/08/24 Range/Units 06:10 11:46 17:10 Sodium (137-145) mmol/L Potassium (3.5-5.1) mmol/L Chloride (98-107) mmol/L Carbon Dioxide (22-30) mmol/L Creatinine (0.52-1.04) mg/dL Glucose (74-99) mg/dL POC Glucose (mg/dL) 195 H 208 H (70-110) mg/dL Total Protein (6.3-8.2) g/dL Albumin (3.5-5.0) g/dL Procalcitonin 0.51 H (0.02-0.50) ng/mL 12/09/24 12/09/24 12/09/24 Range/Units 00:07 06:03 06:06 Sodium 149 H (137-145) mmol/L Potassium 3.4 L (3.5-5.1) mmol/L Chloride 109 H (98-107) mmol/L Carbon Dioxide 31 H (22-30) mmol/L Creatinine 0.43 L (0.52-1.04) mg/dL Glucose 176 H (74-99) mg/dL POC Glucose (mg/dL) 151 H 159 H (70-110) mg/dL Total Protein 5.3 L (6.3-8.2) g/dL Albumin 2.6 L (3.5-5.0) g/dL Procalcitonin (0.02-0.50) ng/mL Microbiology - Last 24 Hours (Table) 12/05/24 17:00 CSF Gram Stain - Preliminary Cerebral Spinal Fluid CSF Culture - Preliminary 12/03/24 10:25 Blood Culture - Final Blood Assessment and Plan Assessment: Acute encephalopathy,, rightward gaze deviation with nystagmus. Unsure exact etiology, status unchanged Hyperthyroidism Hypernatremia, patient seems dehydrated Hypotensive on admission, now improved Leukocytosis, Unknown etiology, Signs of UTI on UA, urine culture negative, blood culture negative till date.CSF study is negative R/o cancer, oncology consulted Hypertension Hyperlipidemia Diabetes mellitus Plan: The patient has been made comfort care, per brother No further intervention is indicated at this time Continue Keppra 1000 mg Q12HR Continue home Valproic acid 250mg every 6 hours but is on IV since is NPO because of her confusion. Neurology will sign off at this time. Please call with questions or concerns. Time with Patient: Greater than 30 (35 minutes were spent caring for this patient today including, obtaining an interim history, examining the patient, reviewing imaging, chart documentation, labs and creating this note)
[2024-12-09 14:23] VITALS: BMI 26.9
--- NOTE | 2024-12-09 14:52 | P.PN ---
Progress Note - Text Progress Note Date: 12/09/24 Patient is admitted with altered mentation. Normally awake alert. December 07: Patient pretty much in bed encephalopathic/delirious. Spoke to the nurse has not been taking medications or any food since December 04. Patient has multiple medications at home. She also does take Neurontin and valproic acid. EEG from yesterday did not show any seizure activity but findings of encephalopathy. Patient is also getting IV Zosyn. ID is following the patient has empirically the patient on antibiotic. ID suspects a source of UTI. Note CBC differential shows a predominant lymphocytes. Also note patient's creatinine was 1.6 on presentation now down to 0.63. That itself could be contributing to altered mentation initially. Per neurology patient be started on IV Keppra and IV Depakote. At this point for metabolic acidosis will start the patient on sodium bicarbonate drip. Will stop Farxiga also. Switch the patient following to IV: Pepcid, Synthroid,. Patient still has nystagmus more fluids right and a bit in the vertical direction. Not able to answer any questions. Also discussed with Dr. Benz from ID. Patient will need a CT scan of the abdomen when more awake. She had quite a bit of diarrhea yesterday. But her C. difficile is come back negative. Including PCR. Oral Vanco will be discontinued. Total time spent today about 50 minutes with over 30 minutes of discussion. December 08: Patient has been on a bicarbonate drip. Seems to have a mixed acid- alkalosis picture. Sodium remains 152. White count slowly coming down. Discussed with Dr. Mas from hematology. Will switch IV fluids to D5.45. Keep running at 150 cc an hour. Nystagmus present. Both vertical and horizontal. Sometimes rotational. Will increase Lantus to 26 units. Did open eyes to calling out her name. Bit more responsive compared to yesterday. Patient seems to be over replaced with Synthroid. She is only taking a small amount. This will be discontinued. NG tube ordered. Will start Glucerna shake 4 cans a day with free fluid. EEG from yesterday did show her epileptiform discharges over the left parietal. Patient has several metabolic reasons to explain her presentation right now. In addition she has had seizures, not having received few days of Neurontin and Depakote. December 09: Yesterday evening patient started taking a turn for the worse. Started becoming a bit apneic. Bradycardic. The nurse spoke to the patient's brother. Patient made comfort care. Laying in bed. On comfort measures. Active Medications Acetaminophen (Acetaminophen Suppository 650 Mg Supp) 650 mg RECTAL Q4HR PRN PRN Reason: Fever and/or Mild Pain Atropine Sulfate (Atropine Ophth Soln 1% 5ml Btl) 2 drops SUBLINGUAL Q4HR PRN PRN Reason: Excess Secretions Bisacodyl (Bisacodyl 10 Mg Supp) 10 mg RECTAL DAILY PRN PRN Reason: Constipation Clonidine HCl (Clonidine 0.1 Mg/24hr Patch) 1 patch TRANSDERM Q7D [facility] Last Admin: 12/07/24 18:37 Dose: 1 patch Dextrose/Water (Dextrose 50% Syringe 50 Ml) 25 ml IVP PER PROTOCOL PRN; Protocol PRN Reason: Hypoglycemia Last Admin: 12/05/24 06:24 Dose: 25 ml Dextrose/Water (Dextrose 50% Syringe 50 Ml) 50 ml IVP PER PROTOCOL PRN; Protocol PRN Reason: Hypoglycemia Famotidine (Famotidine 20 Mg/2 Ml Vial) 20 mg IV Q12HR [facility] Last Admin: 12/09/24 08:58 Dose: 20 mg Hydromorphone HCl (Hydromorphone 0.5 Mg/0.5 Ml Syringe) 0.5 mg IVP Q2HR PRN PRN Reason: Moderate Pain (Scale 4 to 6) Hydromorphone HCl (Hydromorphone 1 Mg/Ml 1 Ml Syringe) 1 mg IVP Q2HR PRN PRN Reason: Moderate Pain (Scale 4 to 6) Levetiracetam (Levetiracetam Iv 500 Mg/5 Ml Vial) 1,000 mg IVP Q12HR [facility] Last Admin: 12/09/24 08:58 Dose: 1,000 mg Lorazepam (Lorazepam 1 Mg/0.5 Ml Vial) 1 mg IV Q6HR PRN PRN Reason: Anxiety Naloxone HCl (Naloxone 0.4 Mg/Ml 1 Ml Vial) 0.2 mg IV Q2M PRN PRN Reason: Opioid Reversal Ondansetron HCl (Ondansetron 4 Mg/2 Ml Vial) 4 mg IVP Q8HR PRN PRN Reason: Nausea/emesis Petrolatum (Zinc Oxide Paste (Z-Guard) 1 Applic) 1 applic TOPICAL Q2HR PRN; Protocol PRN Reason: Wound Healing Scopolamine (Scopolamine 1 Mg/72 Hr Patch) 1 patch TRANSDERM Q72H PRN PRN Reason: Congestion Sodium Biphosphate/Sodium Phosphate (Na Phos,M-B/Na Phos,Di-Ba 133 Ml Enema) 133 ml RECTAL DAILY PRN PRN Reason: Constipation On examination: VITAL SIGNS: 97.4, 61, 20, 131 x 69, 100% on 3 L GENERAL APPEARANCE: BMI 28.1, laying in bed. Lethargic. HEENT: Normal external appearance of nose and ear. Oral cavity normal EYES: Pupils equal. Conjunctiva normal. Nystagmus to the right and some vertically NECK: JVD not raised. Mass not palpable. RESPIRATORY: Respiratory effort normal. Lungs clear to auscultation. CARDIOVASCULAR: First and second sounds normal. No edema. ABDOMEN: Soft. Liver and spleen not palpable. No tenderness. No mass palpable. PSYCHIATRY: Lethargic. Not following commands Neurological: nystagmus. Will open eyes INVESTIGATIONS, reviewed in the clinical context: EEG [December 07] evidence of epileptiform activity December 08: White count 22.6 hemoglobin 12 platelets 363 sodium 152 potassium 3.4 bicarb 31 BUN 18 creatinine 0.55 procalcitonin 0.51 TSH 0.294 Free T4-2.37 C. difficile stool PCR: Negative December 07: White count 27.8 hemoglobin 12.6 platelets are 87 sodium 152 potassium 4 BUN 28 creatinine 0.63. Glucose 245 EEG [December 06]: Background slowing suggestive of encephalopathy. No epileptiform activity MRI brain: Nonspecific chronic changes Assessment plan: - Altered mentation. This appears to be combination of metabolic encephalopathy and possibly delirium.: Slow to respond Note patient's creatinine was 1.6 i upon presentation which has now come down to normal. This is 1 contributing factor. Also note that patient was on Neurontin and Depakote. Which she has not had for 4 days. This could be contributing some element of seizures. Patient was started on Keppra and Depakote IV today by neurology. Seizures from withdrawal from Neurontin and Depakote could be contributing. Also patient has metabolic acidosis. Note that patient was on Jardiance. Will DC the same. Start the patient on sodium bicarbonate drip. - Seizure activity likely from patient not able to take Neurontin and Depakote because of her clinical status. Started on IV Keppra and Depakote on December 07. - Leukocytosis. With abnormal differentiation. Initially patient had a predominant lymphocytes. Now neutrophils Gradually improving. Seen by hematology. No further intervention - Acute diarrhea. Stool C. difficile PCR negative: Resolved Stop oral vancomycin - Essential hypertension As patient not able to take oral medications.-Catapres patch 0.1 mg. - Diabetes mellitus type 2, uncontrolled hyperglycemia Will follow Accu-Cheks closely. Get that patient not eating. Patient also is getting potassium with D5W. Follow with sliding scale insulin Hold off Farxiga for now. Hold off oral hypoglycemics. Increase Lantus 26 units subcu at night - GERD Changed to IV Pepcid -Mixed metabolic acidosis and alkalosis. Now the latter Patient received sodium bicarbonate drip. Now switched over to D5.45 - Hypothyroid, with over replacement Stop Synthroid - Chronic urine incontinence Ditropan XL 5 mg a day. - Acute kidney injury possibly ATN presentation.: Resolved Admission creatinine was 1.6. Now down to 0.63 - Hypernatremia due to fluid deficit. Sodium up to 152: Slow to respond Change IV fluids to D5.45. 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
--- NOTE | 2024-12-09 16:33 | P.PN ---
Subjective Progress Note Date: 12/09/24 Principal diagnosis: Reason for follow-up is leukocytosis/infection Patient is a 69-year-old female with a past medical history significant for type 2 diabetes mellitus hypertension hyperlipidemia hypothyroidism and residential resident patient has been sent to the hospital from the residential concerning for altered mental status also found to be lethargic patient did have elevated white count positive UA prompted this consultation. On today's evaluation that is 12/10/2023, patient did have a temperature of 97.4 F last evening no temperature has been recorded since then patient is sleepy lethargic though responding to her name unable to provide any meaningful history currently on 3 L goal oxygen. No CBC was done today creatinine 0.43 cultures so far negative Objective - Vital Signs Vital signs: Vital Signs Temp 97.4 F L 12/08/24 19:41 Pulse 61 12/09/24 14:00 Resp 24 12/09/24 14:00 BP 131/69 12/08/24 19:41 Pulse Ox 100 12/08/24 19:41 FiO2 Intake & Output 12/08/24 12/09/24 12/09/24 18:59 06:59 18:59 Intake Total 20 Output Total 825 300 300 Balance -805 -300 -300 Weight 75.5 kg 75.5 kg Intake: IV 20 Invasive Line 3 10 Invasive Line 4 10 Output: Urine 825 300 300 Other: Voiding Method Indwelling Catheter Indwelling Catheter Indwelling Catheter # Bowel Movements 1 - Exam GENERAL DESCRIPTION: An elderly female lying in bed in no distress RESPIRATORY SYSTEM: Unlabored breathing , decreased breath sounds at bases HEART: S1 S2 regular rate and rhythm , ABDOMEN: Soft , no tenderness - Labs CBC & Chem 7: 12/08/24 06:10 12/09/24 06:03 Labs: Abnormal Lab Results - Last 24 Hours (Table) 12/08/24 12/08/24 12/09/24 Range/Units 11:19 17:10 00:07 Sodium (137-145) mmol/L Potassium (3.5-5.1) mmol/L Chloride (98-107) mmol/L Carbon Dioxide (22-30) mmol/L Creatinine (0.52-1.04) mg/dL Glucose (74-99) mg/dL POC Glucose (mg/dL) 208 H 151 H (70-110) mg/dL Total Protein (6.3-8.2) g/dL Albumin (3.5-5.0) g/dL Vitamin B12 1251.0 H (200.0-944.0) pg/mL 12/09/24 12/09/24 Range/Units 06:03 06:06 Sodium 149 H (137-145) mmol/L Potassium 3.4 L (3.5-5.1) mmol/L Chloride 109 H (98-107) mmol/L Carbon Dioxide 31 H (22-30) mmol/L Creatinine 0.43 L (0.52-1.04) mg/dL Glucose 176 H (74-99) mg/dL POC Glucose (mg/dL) 159 H (70-110) mg/dL Total Protein 5.3 L (6.3-8.2) g/dL Albumin 2.6 L (3.5-5.0) g/dL Vitamin B12 (200.0-944.0) pg/mL Microbiology - Last 24 Hours (Table) 12/05/24 17:00 CSF Gram Stain - Preliminary Cerebral Spinal Fluid CSF Culture - Preliminary 12/03/24 10:25 Blood Culture - Final Blood Assessment and Plan (1) UTI (urinary tract infection) Current Visit: Yes Status: Acute Code(s): N39.0 - URINARY TRACT INFECTION, SITE NOT SPECIFIED SNOMED Code(s): 04626790 (2) Leukocytosis Current Visit: Yes Status: Acute Code(s): D72.829 - ELEVATED WHITE BLOOD CELL COUNT, UNSPECIFIED SNOMED Code(s): 035597037 (3) Diarrhea Current Visit: Yes Status: Acute Code(s): R19.7 - DIARRHEA, UNSPECIFIED SNOMED Code(s): 95547593 Plan: 1patient presented to hospital with sepsis in this patient who did have hypotension requiring fluid and pressor support patient also have significant elevated white count elevated lactic acid medically for SIRS/sepsis source is likely urinary patient also have significant stool burden on the CT but did not mention evidence of colitis or diverticulitis and no need for further enteric gram-negative and less likely gram positive sylvester 2-patient is been evaluated by neurology patient did have an MRI that was negative for any acute infarct or bleed she also have an LP not suggestive of encephalitis or meningitis 3patient did have negative stool for C. difficile including both EIA and PCR 4-patient white count is trending down, down to 22,000 as of yesterday no CBC was done today Pro-Ankit is mildly elevated 5patient will be treated with Zosyn hopefully if mentation improved and able to drink we will repeat his CT abdominal pelvis with oral contrast Dictation was produced using [employer] dictation software. please excuse any grammatical, word or spelling errors. Time with Patient: Less than 30
[2024-12-09 20:13] LABS: Glucose,Whole Blood 151 mg/dL (70-110)
[2024-12-10 05:59] LABS: Glucose,Whole Blood 161 mg/dL (70-110)
[2024-12-10] MEDS: LORazepam 1 MG/0.5 ML VIAL IV PRN (08:29)
--- NOTE | 2024-12-10 15:25 | P.PN ---
Subjective Progress Note Date: 12/10/24 Principal diagnosis: Reason for follow-up is leukocytosis/infection Patient is a 69-year-old female with a past medical history significant for type 2 diabetes mellitus hypertension hyperlipidemia hypothyroidism and [place] resident patient has been sent to the hospital from the [facility] concerning for altered mental status also found to be lethargic patient did have elevated white count positive UA prompted this consultation. On today's evaluation that is 12/10/2024, Patient is afebrile patient is currently on 3 L nasal oxygen patient is awake but nonverbal did respond to her name but did not answer any question no vomiting diarrhea any changes reported by the nursing staff. Patient did not have any lab draw today blood urine and CSF culture has been negative Objective - Vital Signs Vital signs: Vital Signs Temp 99.1 F 12/10/24 04:48 Pulse 85 12/10/24 08:30 Resp 35 H 12/10/24 08:30 BP 159/73 12/10/24 04:48 Pulse Ox 98 12/10/24 04:48 FiO2 Intake & Output 12/09/24 12/10/24 12/10/24 18:59 06:59 18:59 Output Total 500 375 200 Balance -500 -375 -200 Weight 75.5 kg 77 kg Output: Urine 500 375 200 Other: Voiding Method Indwelling Catheter Indwelling Catheter Indwelling Catheter - Exam GENERAL DESCRIPTION: An elderly female lying in bed in no distress RESPIRATORY SYSTEM: Unlabored breathing , decreased breath sounds at bases HEART: S1 S2 regular rate and rhythm , ABDOMEN: Soft , no tenderness - Labs CBC & Chem 7: 12/08/24 06:10 12/09/24 06:03 Labs: Abnormal Lab Results - Last 24 Hours (Table) 12/09/24 12/10/24 Range/Units 20:11 05:57 POC Glucose (mg/dL) 151 H 161 H (70-110) mg/dL Microbiology - Last 24 Hours (Table) 12/05/24 17:00 CSF Gram Stain - Final Cerebral Spinal Fluid CSF Culture - Final Assessment and Plan (1) UTI (urinary tract infection) Current Visit: Yes Status: Acute Code(s): N39.0 - URINARY TRACT INFECTION, SITE NOT SPECIFIED SNOMED Code(s): 62933705 (2) Leukocytosis Current Visit: Yes Status: Acute Code(s): D72.829 - ELEVATED WHITE BLOOD CELL COUNT, UNSPECIFIED SNOMED Code(s): 946850579 (3) Diarrhea Current Visit: Yes Status: Acute Code(s): R19.7 - DIARRHEA, UNSPECIFIED SNOMED Code(s): 57778246 Plan: 1patient presented to hospital with sepsis in this patient who did have hypotension requiring fluid and pressor support patient also have significant elevated white count elevated lactic acid medically for SIRS/sepsis source is likely urinary patient also have significant stool burden on the CT but did not mention evidence of colitis or diverticulitis and no need for further enteric gram-negative and less likely gram positive sylvester 2-patient is been evaluated by neurology patient did have an MRI that was negative for any acute infarct or bleed she also have an LP not suggestive of encephalitis or meningitis 3patient did have negative stool for C. difficile including both EIA and PCR 4-patient white count is trending down, down to 22,000 as of 2 days ago Pro-Ankit is mildly elevated 5patient currently being treated with Zosyn we will repeat a CBC with a.m. lab to make sure the white count is trending down Dictation was produced using Pad[employer] software. please excuse any grammatical, word or spelling errors. Time with Patient: Less than 30
--- NOTE | 2024-12-10 17:10 | P.PN ---
Progress Note - Text Progress Note Date: 12/10/24 Patient is admitted with altered mentation. Normally awake alert. December 07: Patient pretty much in bed encephalopathic/delirious. Spoke to the nurse has not been taking medications or any food since December 04. Patient has multiple medications at home. She also does take Neurontin and valproic acid. EEG from yesterday did not show any seizure activity but findings of encephalopathy. Patient is also getting IV Zosyn. ID is following the patient has empirically the patient on antibiotic. ID suspects a source of UTI. Note CBC differential shows a predominant lymphocytes. Also note patient's creatinine was 1.6 on presentation now down to 0.63. That itself could be contributing to altered mentation initially. Per neurology patient be started on IV Keppra and IV Depakote. At this point for metabolic acidosis will start the patient on sodium bicarbonate drip. Will stop Farxiga also. Switch the patient following to IV: Pepcid, Synthroid,. Patient still has nystagmus more fluids right and a bit in the vertical direction. Not able to answer any questions. Also discussed with Dr. Benz from ID. Patient will need a CT scan of the abdomen when more awake. She had quite a bit of diarrhea yesterday. But her C. difficile is come back negative. Including PCR. Oral Vanco will be discontinued. Total time spent today about 50 minutes with over 30 minutes of discussion. December 08: Patient has been on a bicarbonate drip. Seems to have a mixed acid- alkalosis picture. Sodium remains 152. White count slowly coming down. Discussed with Dr. Mas from hematology. Will switch IV fluids to D5.45. Keep running at 150 cc an hour. Nystagmus present. Both vertical and horizontal. Sometimes rotational. Will increase Lantus to 26 units. Did open eyes to calling out her name. Bit more responsive compared to yesterday. Patient seems to be over replaced with Synthroid. She is only taking a small amount. This will be discontinued. NG tube ordered. Will start Glucerna shake 4 cans a day with free fluid. EEG from yesterday did show her epileptiform discharges over the left parietal. Patient has several metabolic reasons to explain her presentation right now. In addition she has had seizures, not having received few days of Neurontin and Depakote. December 09: Yesterday evening patient started taking a turn for the worse. Started becoming a bit apneic. Bradycardic. The nurse spoke to the patient's brother. Patient made comfort care. Laying in bed. On comfort measures. December 10: Remains on comfort measures. Will occasionally open eyes. Does not appear to be in any distress. Active Medications Acetaminophen (Acetaminophen Suppository 650 Mg Supp) 650 mg RECTAL Q4HR PRN PRN Reason: Fever and/or Mild Pain Atropine Sulfate (Atropine Ophth Soln 1% 5ml Btl) 2 drops SUBLINGUAL Q4HR PRN PRN Reason: Excess Secretions Bisacodyl (Bisacodyl 10 Mg Supp) 10 mg RECTAL DAILY PRN PRN Reason: Constipation Clonidine HCl (Clonidine 0.1 Mg/24hr Patch) 1 patch TRANSDERM Q7D [facility] Last Admin: 12/07/24 18:37 Dose: 1 patch Dextrose/Water (Dextrose 50% Syringe 50 Ml) 25 ml IVP PER PROTOCOL PRN; Protocol PRN Reason: Hypoglycemia Last Admin: 12/05/24 06:24 Dose: 25 ml Dextrose/Water (Dextrose 50% Syringe 50 Ml) 50 ml IVP PER PROTOCOL PRN; Protocol PRN Reason: Hypoglycemia Famotidine (Famotidine 20 Mg/2 Ml Vial) 20 mg IV Q12HR [facility] Last Admin: 12/10/24 08:29 Dose: 20 mg Hydromorphone HCl (Hydromorphone 0.5 Mg/0.5 Ml Syringe) 0.5 mg IVP Q2HR PRN PRN Reason: Moderate Pain (Scale 4 to 6) Hydromorphone HCl (Hydromorphone 1 Mg/Ml 1 Ml Syringe) 1 mg IVP Q2HR PRN PRN Reason: Moderate Pain (Scale 4 to 6) Levetiracetam (Levetiracetam Iv 500 Mg/5 Ml Vial) 1,000 mg IVP Q12HR N[facility] Last Admin: 12/10/24 08:29 Dose: 1,000 mg Lorazepam (Lorazepam 1 Mg/0.5 Ml Vial) 1 mg IV Q6HR PRN PRN Reason: Anxiety Last Admin: 12/10/24 08:29 Dose: 1 mg Naloxone HCl (Naloxone 0.4 Mg/Ml 1 Ml Vial) 0.2 mg IV Q2M PRN PRN Reason: Opioid Reversal Ondansetron HCl (Ondansetron 4 Mg/2 Ml Vial) 4 mg IVP Q8HR PRN PRN Reason: Nausea/emesis Petrolatum (Zinc Oxide Paste (Z-Guard) 1 Applic) 1 applic TOPICAL Q2HR PRN; Protocol PRN Reason: Wound Healing Scopolamine (Scopolamine 1 Mg/72 Hr Patch) 1 patch TRANSDERM Q72H PRN PRN Reason: Congestion Sodium Biphosphate/Sodium Phosphate (Na Phos,M-B/Na Phos,Di-Ba 133 Ml Enema) 133 ml RECTAL DAILY PRN PRN Reason: Constipation On examination: VITAL SIGNS: 99.1, 85, 18, 159 x 73, 98% on 3 L GENERAL APPEARANCE: BMI 28.1, laying in bed. Lethargic. HEENT: Normal external appearance of nose and ear. Oral cavity normal EYES: Pupils equal. Conjunctiva normal. Nystagmus to the right and some vertically NECK: JVD not raised. Mass not palpable. RESPIRATORY: Respiratory effort normal. Lungs clear to auscultation. CARDIOVASCULAR: First and second sounds normal. No edema. ABDOMEN: Soft. Liver and spleen not palpable. No tenderness. No mass palpable. PSYCHIATRY: Lethargic. Not following commands Neurological: nystagmus. Will occasionally open eyes INVESTIGATIONS, reviewed in the clinical context: EEG [December 07] evidence of epileptiform activity December 08: White count 22.6 hemoglobin 12 platelets 363 sodium 152 potassium 3.4 bicarb 31 BUN 18 creatinine 0.55 procalcitonin 0.51 TSH 0.294 Free T4-2.37 C. difficile stool PCR: Negative December 07: White count 27.8 hemoglobin 12.6 platelets are 87 sodium 152 potassium 4 BUN 28 creatinine 0.63. Glucose 245 EEG [December 06]: Background slowing suggestive of encephalopathy. No epileptiform activity MRI brain: Nonspecific chronic changes Assessment plan: - Altered mentation. This appears to be combination of metabolic encephalopathy and possibly delirium.: Slow to respond - Seizure activity likely from patient not able to take Neurontin and Depakote because of her clinical status. . - Leukocytosis. With abnormal differentiation. Initially patient had a predominant lymphocytes. Now neutrophils - Acute diarrhea. Stool C. difficile PCR negative: Resolved - Essential hypertension - Diabetes mellitus type 2, uncontrolled hyperglycemia - GERD -Mixed metabolic acidosis and alkalosis. Now the latter - Hypothyroid, with over replacement - Chronic urine incontinence - Acute kidney injury possibly ATN presentation.: Resolved Admission creatinine was 1.6. Now down to 0.63 - Hypernatremia due to fluid deficit. 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
[2024-12-10] MEDS: HYDROmorphone 0.5 MG/0.5 ML SYRINGE IVP PRN (18:49)
[2024-12-11 06:37] LABS: Basophils # (A) 0.11 10*3/uL (0.00-0.10); Basophils % (A) 0.6 %; Eosinophils # (A) 0.00 10*3/uL (0.04-0.35); Eosinophils % (A) 0.0 %; HCT 38.5 % (37.2-46.3); HGB 12.1 g/dL (12.0-15.0); Lymphocytes # (A) 2.53 10*3/uL (0.90-5.00); Lymphocytes % (A) 13.1 %; MCH 30.3 pg (27.0-32.0); MCHC 31.4 g/dL (32.0-37.0); Monocytes # (A) 1.03 10*3/uL (0.20-1.00); Monocytes % (A) 5.3 %; Neutrophils # (A) 15.07 10*3/uL (1.80-7.70); Neutrophils % (A) 77.9 %; Platelet Count 353 10*3/uL (140-440); RBC 4.00 10*6/uL (4.10-5.20); RDW 14.4 % (11.5-14.5); WBC 19.34 10*3/uL (4.50-10.00)
[2024-12-11 06:39] LABS: MCV 96.3 fL (80.0-97.0)
--- NOTE | 2024-12-11 17:52 | CDI ---
Documentation Clarification Form Date: 12/11/2024 05:11:00 PM From: Gisela Wilkerson RN CCDS Phone: [phone] Admit Date: 12/03/2024 01:01:00 PM Patient Name: Daksha Salas Visit Number: [id number] Discharge Date: ATTENTION: The Clinical Documentation Specialists (CDI) and [facility] Coding Staff appreciate your assistance in clarifying documentation. Please respond to the clarification below the line at the bottom and electronically sign. The CDI & [facility] Coding staff will review the response and follow-up if needed. Please note: Queries are made part of the Legal Health Record. If you have any questions, please contact the author of this message via ITS. Doctor: Samuel Garcia The patient has Septic shock, 12/03 HP. Based on this information and the findings below, is there an additional diagnosis that is clinically appropriate for this patient? History/Risk Factors: 69 year old female presents to the ED from long-term after becoming confused and hypotension. Medical history: DM2, HTN, HLD and CRE ESBL Clinical Indicators: WBC, 12/03: 42.63; Neutrophils, 12/03: 37.08, Lactic acid, 12/03: 6.0 Blood cultures, 12/03: No growth after five days Urine culture, 12/03: No growth after 18 hours. Urine Analysis, 12/03: Color red, turbid, protein 2+, glucose 4+, Blood Large, Nitrate Negative, Leukocyte Esterase Large, RBC >182, WBC >182, WBC Clumps Many, Squamous Epith Cells 24, Urine yeas budding Many. Vitals signs, 12/03: B/P 77/63, HR 77, Temp 97.F Axillary, RR 22, SpO2 92% 4L nc Pulmonary note, 12/06: Septic shock/sepsis primary source is unknown at this point. Considering the patient has a negative urine cultures so far, her primary source of infection maybe abdominal rather than urinary in nature. Medicine, 12/06: Hypotension with acute severe urinary tract infection with septic shock, present on admission. Treatment: 12/03 Norepinphrine ID Consult:, 12/03: Sepsis UTI. 12/06 ID consult UTI leukocytosis Diarrhea. 1patient presented to hospital with sepsis in this patient who did have hypotension requiring fluid and pressor support patient also have significant elevated white count elevated lactic acid medically for SIRS/sepsis source is likely urinary patient also have significant stool burden on the CT but did not mention evidence of colitis or diverticulitis and no need for further enteric gram-negative and less likely gram positive sylvester Antibiotics: 12/03 Cefepime ivpb x 1, 12/04 Cefepime ivpb x 1, 12/04 - 12/05 Cefepime IVPB Q8H; 12/03 Vancomycin IVPB x 1, 12/05 12/08 Zosyn IVPB Q8H; Vancomycin PO QID, IV Bolus: 12/03 0.9ns 2L IVFL, Is there an additional diagnosis that is clinically appropriate for this patient? [ + ] Sepsis, present on admission [ ] Sepsis ruled out [ ] SIRS, without underlying infectious process [ ] Other, please specify [ ] Unable to determine SIRS Criteria: 2 or more of the following may indicate SIRS Temperature < 96.8F (36C) or > 101.0F (38.3C) Heart Rate > 90 bpm Respiratory Rate > 20 breaths/min or PaCO2 < 32 mmHg White Blood Cell Count > 12,000 or < 4,000 cells/mm3 or > 10% bands (Template Last Reviewed: June 2022) MTDD
--- NOTE | 2024-12-11 20:24 | P.PN ---
Progress Note - Text Progress Note Date: 12/11/24 Patient is admitted with altered mentation. Normally awake alert. December 07: Patient pretty much in bed encephalopathic/delirious. Spoke to the nurse has not been taking medications or any food since December 04. Patient has multiple medications at home. She also does take Neurontin and valproic acid. EEG from yesterday did not show any seizure activity but findings of encephalopathy. Patient is also getting IV Zosyn. ID is following the patient has empirically the patient on antibiotic. ID suspects a source of UTI. Note CBC differential shows a predominant lymphocytes. Also note patient's creatinine was 1.6 on presentation now down to 0.63. That itself could be contributing to altered mentation initially. Per neurology patient be started on IV Keppra and IV Depakote. At this point for metabolic acidosis will start the patient on sodium bicarbonate drip. Will stop Farxiga also. Switch the patient following to IV: Pepcid, Synthroid,. Patient still has nystagmus more fluids right and a bit in the vertical direction. Not able to answer any questions. Also discussed with Dr. Benz from ID. Patient will need a CT scan of the abdomen when more awake. She had quite a bit of diarrhea yesterday. But her C. difficile is come back negative. Including PCR. Oral Vanco will be discontinued. Total time spent today about 50 minutes with over 30 minutes of discussion. December 08: Patient has been on a bicarbonate drip. Seems to have a mixed acid- alkalosis picture. Sodium remains 152. White count slowly coming down. Discussed with Dr. Mas from hematology. Will switch IV fluids to D5.45. Keep running at 150 cc an hour. Nystagmus present. Both vertical and horizontal. Sometimes rotational. Will increase Lantus to 26 units. Did open eyes to calling out her name. Bit more responsive compared to yesterday. Patient seems to be over replaced with Synthroid. She is only taking a small amount. This will be discontinued. NG tube ordered. Will start Glucerna shake 4 cans a day with free fluid. EEG from yesterday did show her epileptiform discharges over the left parietal. Patient has several metabolic reasons to explain her presentation right now. In addition she has had seizures, not having received few days of Neurontin and Depakote. December 09: Yesterday evening patient started taking a turn for the worse. Started becoming a bit apneic. Bradycardic. The nurse spoke to the patient's brother. Patient made comfort care. Laying in bed. On comfort measures. December 10: Remains on comfort measures. Will occasionally open eyes. Does not appear to be in any distress. December 11. Comfort measures. Not in distress. Patient's brother did visit.'s spoke to him on the phone. Active Medications Acetaminophen (Acetaminophen Suppository 650 Mg Supp) 650 mg RECTAL Q4HR PRN PRN Reason: Fever and/or Mild Pain Atropine Sulfate (Atropine Ophth Soln 1% 5ml Btl) 2 drops SUBLINGUAL Q4HR PRN PRN Reason: Excess Secretions Bisacodyl (Bisacodyl 10 Mg Supp) 10 mg RECTAL DAILY PRN PRN Reason: Constipation Clonidine HCl (Clonidine 0.1 Mg/24hr Patch) 1 patch TRANSDERM Q7D [facility] Last Admin: 12/07/24 18:37 Dose: 1 patch Dextrose/Water (Dextrose 50% Syringe 50 Ml) 25 ml IVP PER PROTOCOL PRN; Protocol PRN Reason: Hypoglycemia Last Admin: 12/05/24 06:24 Dose: 25 ml Dextrose/Water (Dextrose 50% Syringe 50 Ml) 50 ml IVP PER PROTOCOL PRN; Protocol PRN Reason: Hypoglycemia Famotidine (Famotidine 20 Mg/2 Ml Vial) 20 mg IV Q12HR [facility] Last Admin: 12/11/24 08:53 Dose: 20 mg Hydromorphone HCl (Hydromorphone 0.5 Mg/0.5 Ml Syringe) 0.5 mg IVP Q2HR PRN PRN Reason: Moderate Pain (Scale 4 to 6) Last Admin: 12/11/24 17:16 Dose: 0.5 mg Hydromorphone HCl (Hydromorphone 1 Mg/Ml 1 Ml Syringe) 1 mg IVP Q2HR PRN PRN Reason: Moderate Pain (Scale 4 to 6) Levetiracetam (Levetiracetam Iv 500 Mg/5 Ml Vial) 1,000 mg IVP Q12HR [facility] Last Admin: 12/11/24 08:52 Dose: 1,000 mg Lorazepam (Lorazepam 1 Mg/0.5 Ml Vial) 1 mg IV Q6HR PRN PRN Reason: Anxiety Last Admin: 12/10/24 08:29 Dose: 1 mg Naloxone HCl (Naloxone 0.4 Mg/Ml 1 Ml Vial) 0.2 mg IV Q2M PRN PRN Reason: Opioid Reversal Ondansetron HCl (Ondansetron 4 Mg/2 Ml Vial) 4 mg IVP Q8HR PRN PRN Reason: Nausea/emesis Petrolatum (Zinc Oxide Paste (Z-Guard) 1 Applic) 1 applic TOPICAL Q2HR PRN; Protocol PRN Reason: Wound Healing Scopolamine (Scopolamine 1 Mg/72 Hr Patch) 1 patch TRANSDERM Q72H PRN PRN Reason: Congestion Sodium Biphosphate/Sodium Phosphate (Na Phos,M-B/Na Phos,Di-Ba 133 Ml Enema) 133 ml RECTAL DAILY PRN PRN Reason: Constipation On examination: VITAL SIGNS: 100.4, 92, 24, 182 x 70, 100% room air GENERAL APPEARANCE: BMI 28.1, laying in bed. Lethargic. HEENT: Normal external appearance of nose and ear. Oral cavity normal EYES: Pupils equal. Conjunctiva normal. Nystagmus to the right and some vertically NECK: JVD not raised. Mass not palpable. RESPIRATORY: Respiratory effort normal. Lungs clear to auscultation. CARDIOVASCULAR: First and second sounds normal. No edema. ABDOMEN: Soft. Liver and spleen not palpable. No tenderness. No mass palpable. PSYCHIATRY: Lethargic. Not following commands Neurological: Will occasionally open eyes INVESTIGATIONS, reviewed in the clinical context: EEG [December 07] evidence of epileptiform activity December 08: White count 22.6 hemoglobin 12 platelets 363 sodium 152 potassium 3.4 bicarb 31 BUN 18 creatinine 0.55 procalcitonin 0.51 TSH 0.294 Free T4-2.37 C. difficile stool PCR: Negative December 07: White count 27.8 hemoglobin 12.6 platelets are 87 sodium 152 potassium 4 BUN 28 creatinine 0.63. Glucose 245 EEG [December 06]: Background slowing suggestive of encephalopathy. No epileptiform activity MRI brain: Nonspecific chronic changes Assessment plan: - Altered mentation. This appears to be combination of metabolic encephalopathy and possibly delirium.: Slow to respond - Seizure activity likely from patient not able to take Neurontin and Depakote because of her clinical status. . - Leukocytosis. With abnormal differentiation. Initially patient had a predominant lymphocytes. Now neutrophils - Acute diarrhea. Stool C. difficile PCR negative: Resolved - Essential hypertension - Diabetes mellitus type 2, uncontrolled hyperglycemia - GERD -Mixed metabolic acidosis and alkalosis. Now the latter - Hypothyroid, with over replacement - Chronic urine incontinence - Acute kidney injury possibly ATN presentation.: Resolved Admission creatinine was 1.6. Now down to 0.63 - Hypernatremia due to fluid deficit. 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 Spoke to brother on the phone
--- NOTE | 2024-12-11 21:05 | P.PN ---
Subjective Progress Note Date: 12/11/24 Principal diagnosis: Patient seen and examined at bedside today. She is still unresponsive and does not follow commands. Blood pressure today is 164/77. White count decreased to 19.34 Vitamin B12 1251, folate 15.20, procalcitonin 0.51, TSH 0.294, free T4 2.37 Objective - Vital Signs Vital signs: Vital Signs Temp 98.3 F 12/11/24 03:43 Pulse 85 12/11/24 03:43 Resp 24 12/11/24 03:43 BP 164/77 12/11/24 03:43 Pulse Ox 98 12/11/24 03:43 FiO2 Intake & Output 12/10/24 12/11/24 12/11/24 18:59 06:59 18:59 Output Total 575 300 Balance -575 -300 Weight 76 kg Output: Urine 575 300 Other: Voiding Method Indwelling Catheter Indwelling Catheter # Bowel Movements 1 - Exam General: no distress, lying in bed On general examination, there is no carotid bruit or murmur, S1-S2 audible. Chest is clear on consultation. Abdomen is soft nontender. No peripheral edema. Neuro: does not respond to questions rightward gaze deviation with jerky nystagmus, stiff and rigid neck, Face is symmetric. Per nursing report patient is blind and has disconjugate gaze at baseline. Unable to test muscle strength Deep tendon reflexes are symmetric 1 at the biceps, brachioradialis, knees and plantars indeterminate - Labs CBC & Chem 7: 12/11/24 06:14 12/09/24 06:03 Labs: Abnormal Lab Results - Last 24 Hours (Table) 12/11/24 Range/Units 06:14 WBC 19.34 H (4.50-10.00) 10*3/uL RBC 4.00 L (4.10-5.20) 10*6/uL MCHC 31.4 L (32.0-37.0) g/dL MPV 9.0 L (9.5-12.2) fL Immature Gran # 0.60 H (0.00-0.04) 10*3/uL Neutrophils # 15.07 H (1.80-7.70) 10*3/uL Monocytes # 1.03 H (0.20-1.00) 10*3/uL Eosinophils # 0.00 L (0.04-0.35) 10*3/uL Basophils # 0.11 H (0.00-0.10) 10*3/uL Microbiology - Last 24 Hours (Table) 12/05/24 17:00 CSF Gram Stain - Final Cerebral Spinal Fluid CSF Culture - Final Assessment and Plan Assessment: Acute encephalopathy,, rightward gaze deviation: Unsure exact etiology. MRI Brain is negative for acute stroke or enhancement, CSF study is negative for meningoencephalitis. Rule out seizure. Also rule out sepsis of unknown etiology leading to her symptoms. Hyperthyroidism Hypernatremia, patient seems dehydrated Hypotensive on admission, now improved Leukocytosis, Unknown etiology, Signs of UTI on UA, urine culture negative, blood culture negative till date. R/o cancer, oncology consulted Hypertension Hyperlipidemia Diabetes mellitus Plan: Brain MRI shows no evidence of intracranial mass, acute/subacute infarct MRI abdomen and placement nonspecific minimal early degenerative changes likely small vessel ischemic disease moderate to severe paranasal sinus disease with air-fluid level. Brain CT shows no acute intracranial process and nonspecific white matter selina nges likely secondary to chronic small vessel ischemic disease and paranasal sinus disease with air fluid levels. Lumbar puncture 12/05/24, CSF studies show clear appearance, RBC 4, glucose 71, protein 86 , Total nucleated cells 0. CSF culture and gram stain shows no growth EEG background slowing system of moderate to severe encephalopathy, no focal slowing/epileptiform discharge/seizure Repeat EEG background slowing, suggestive of severe encephalopathy, epileptiform discharges over the left parietal more than occipital which can increase risk for seizure, no focal slowing/ seizure noted during the study Lactic acid 1.6, Vitamin B12 1251, folate 15.20, procalcitonin 0.51, TSH 0.294, free T4 2.37, ammonia <9 C. diff PCR and EIA is negative Ativan 1mg IV given once, rightward gaze deviation improved after Ativan administration Keppra 1 gm IV given once before and once today Continue Keppra 1000 mg Q12HR Continue valproic acid 1 gm IV once and then 500 mg IV Q12HR. patient has home med oral valproate which was not administered as patient is NPO. Patient started on bicarb drip per primary team Intially seemed like Urosepsis, talked to ID who has now ruled it out. Defer further investigation of leukocytosis and antibiotic/antivirals to ID and primary team Consider repeat MRI brain in case of no clinical improvement Patient made comfort care Dictation was produced using [employer] dictation software. please excuse any grammatical, word or spelling errors. Suzette Serna MD PGY-2 IM I was present for the alexandra and critical components of this encounter and I agree with assessment and plan as documented above. Family have made decision for comfort care.
[2024-12-12 07:37] VITALS: TEMP 100.3
[2024-12-12 12:18] VITALS: BP 177/82; PULSE 104; RESP 30
--- NOTE | 2024-12-12 12:41 | P.DS ---
Providers Date of admission: 12/03/24 13:01 Expected date of discharge: 12/12/24 Attending physician: Samuel Garcia Consults: 12/03/24 13:01 Consult Physician Stat Consulting Provider: Margarita Osman Consult Reason/Comments: icu patient Do you want consulting provider notified?: Yes 12/03/24 14:31 Consult Physician Routine Consulting Provider: Jin Beach Consult Reason/Comments: sepsis Do you want consulting provider notified?: Yes 12/05/24 12:21 Consult Physician Urgent Consulting Provider: Anshu Torres Consult Reason/Comments: R/O CVA Do you want consulting provider notified?: Yes 12/07/24 17:38 Consult Physician Routine Consulting Provider: Gregory Mas Consult Reason/Comments: Persistent leukocytosis Do you want consulting provider notified?: Yes 12/08/24 19:14 Consult Physician Urgent Consulting Provider: Ramón Garza Consult Reason/Comments: apnea Do you want consulting provider notified?: Yes Primary care physician: [facility] Hospital Course: Patient is admitted with altered mentation. Normally awake alert. December 07: Patient pretty much in bed encephalopathic/delirious. Spoke to the nurse has not been taking medications or any food since December 04. Patient has multiple medications at home. She also does take Neurontin and valproic acid. EEG from yesterday did not show any seizure activity but findings of encephalopathy. Patient is also getting IV Zosyn. ID is following the patient has empirically the patient on antibiotic. ID suspects a source of UTI. Note CBC differential shows a predominant lymphocytes. Also note patient's creatinine was 1.6 on presentation now down to 0.63. That itself could be contributing to altered mentation initially. Per neurology patient be started on IV Keppra and IV Depakote. At this point for metabolic acidosis will start the patient on sodium bicarbonate drip. Will stop Farxiga also. Switch the patient following to IV: Pepcid, Synthroid,. Patient still has nystagmus more fluids right and a bit in the vertical direction. Not able to answer any questions. Also discussed with Dr. Benz from ID. Patient will need a CT scan of the abdomen when more awake. She had quite a bit of diarrhea yesterday. But her C. difficile is come back negative. Including PCR. Oral Vanco will be discontinued. Total time spent today about 50 minutes with over 30 minutes of discussion. December 08: Patient has been on a bicarbonate drip. Seems to have a mixed acid- alkalosis picture. Sodium remains 152. White count slowly coming down. Discussed with Dr. Mas from hematology. Will switch IV fluids to D5.45. Keep running at 150 cc an hour. Nystagmus present. Both vertical and horizontal. Sometimes rotational. Will increase Lantus to 26 units. Did open eyes to calling out her name. Bit more responsive compared to yesterday. Patient seems to be over replaced with Synthroid. She is only taking a small amount. This will be discontinued. NG tube ordered. Will start Glucerna shake 4 cans a day with free fluid. EEG from yesterday did show her epileptiform discharges over the left parietal. Patient has several metabolic reasons to explain her presentation right now. In addition she has had seizures, not having received few days of Neurontin and Depakote. December 09: Yesterday evening patient started taking a turn for the worse. Started becoming a bit apneic. Bradycardic. The nurse spoke to the patient's brother. Patient made comfort care. Laying in bed. On comfort measures. December 10: Remains on comfort measures. Will occasionally open eyes. Does not appear to be in any distress. December 11. Comfort measures. Not in distress. Patient's brother did visit.'s spoke to him on the phone. December 12: Remains on comfort measures. Okay stable overnight. Not communicating. Spoke to social work faculty member. Will discharge back to the F with comfort measures. Use Ativan, Roxanol, scopolamine patch. On examination: VITAL SIGNS: 100.3, 104, 30, 177 x 82, 98% 3 L GENERAL APPEARANCE: BMI 28.1, laying in bed. Lethargic. HEENT: Normal external appearance of nose and ear. Oral cavity normal EYES: Pupils equal. Conjunctiva normal. Nystagmus to the right and some vertica lly NECK: JVD not raised. Mass not palpable. RESPIRATORY: Respiratory effort normal. Lungs clear to auscultation. CARDIOVASCULAR: First and second sounds normal. No edema. ABDOMEN: Soft. Liver and spleen not palpable. No tenderness. No mass palpable. PSYCHIATRY: Lethargic. Not following commands Neurological: Will occasionally open eyes INVESTIGATIONS, reviewed in the clinical context: EEG [December 07] evidence of epileptiform activity December 08: White count 22.6 hemoglobin 12 platelets 363 sodium 152 potassium 3.4 bicarb 31 BUN 18 creatinine 0.55 procalcitonin 0.51 TSH 0.294 Free T4-2.37 C. difficile stool PCR: Negative December 07: White count 27.8 hemoglobin 12.6 platelets are 87 sodium 152 potassium 4 BUN 28 creatinine 0.63. Glucose 245 EEG [December 06]: Background slowing suggestive of encephalopathy. No epileptiform activity MRI brain: Nonspecific chronic changes Assessment plan: - Altered mentation. This appears to be combination of metabolic encephalopathy and possibly delirium.: Slow to respond - Seizure activity likely from patient not able to take Neurontin and Depakote because of her clinical status. . - Leukocytosis. With abnormal differentiation. Initially patient had a predominant lymphocytes. Now neutrophils - Acute diarrhea. Stool C. difficile PCR negative: Resolved - Essential hypertension - Diabetes mellitus type 2, uncontrolled hyperglycemia - GERD -Mixed metabolic acidosis and alkalosis. Now the latter - Hypothyroid, with over replacement - Chronic urine incontinence - Acute kidney injury possibly ATN presentation.: Resolved Admission creatinine was 1.6. Now down to 0.63 - Hypernatremia due to fluid deficit. 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 - Essential tremors, history of - DNR, comfort measures Disposition: [facility] Plan - Discharge Summary Discharge Rx Participant: No New Discharge Prescriptions: New Atropine Ophth Soln 1% 5Ml [Isopto Atropine 1% 5Ml] 2 drops SUBLINGUAL Q4HR PRN ml PRN Reason: Excess Secretions Scopolamine 1 mg/72 Hr Patch [TransDerm Scop] 1 patch TRANSDERM Q72H PRN patch PRN Reason: Congestion Acetaminophen Suppository [Tylenol Suppository] 650 mg RECTAL Q4HR PRN suppositor PRN Reason: Fever And/Or Mild Pain cloNIDine 0.1 MG/24HR PATCH [Catapres-TTS] 1 patch TRANSDERM Q7D patch LORazepam [Ativan] 0.5 mg PO Q6H PRN #30 tab PRN Reason: Anxiety MORPHINE ORAL LETICIA CONC 20mg/mL [Roxanol Oral Soln Conc 20Mg/ml] 5 mg PO Q4H PRN #30 ml PRN Reason: Pain Control Continue Sodium Chloride [Saline Nasal Mist] 2 spray EA NOSTRIL Q8H PRN PRN Reason: Congestion Discontinued Simvastatin [Zocor] 20 mg PO HS Multivitamins, Thera [Multivitamin (formulary)] 1 tab PO DAILY sitaGLIPtin PHOS/metFORMIN HCL [Janumet Xr 100-1,000 mg Tablet] 1 tab PO DAILY Levothyroxine Sodium [Synthroid] 25 mcg PO DAILY Oxybutynin Xl [Ditropan Xl] 5 mg PO DAILY Aspirin [Adult Low Dose Aspirin EC] 81 mg PO DAILY buPROPion XL [Wellbutrin XL] 150 mg PO DAILY Valproic Acid Oral Soln [Depakene Syrup] 250 mg PO Q6H Sennosides/Docusate Sodium [Senna-S 8.6-50 mg Tablet] 1 tab PO BID Insulin Degludec [Tresiba] 20 units SQ BID Omeprazole 20 mg PO DAILY Chlorhexidine Gluconate [Peridex] 15 ml PO BID polyethylene glycoL 3350 [Miralax] 17 gm PO DAILY Psyllium Husk (with Sugar) [Metamucil Powder] 1 tbsp PO DAILY Magnesium Hydroxide [Milk of Magnesia Concentrate] 7,200 mg PO Q48H PRN PRN Reason: Constipation Magic Butt Paste 1 applic TOPICAL BID lisinopriL [Zestril] 5 mg PO DAILY Empagliflozin [Jardiance] 10 mg PO DAILY guaiFENesin SYRUP 100MG/5ML [Robitussin] 200 mg PO Q4H PRN PRN Reason: Cough Gabapentin [Neurontin] 300 mg PO BID bisacodyL [Dulcolax] 10 mg RECTAL DAILY PRN PRN Reason: Constipation Na Phos,M-B/Na Phos,Di-Ba [Fleet Adult] 133 ml RECTAL DAILY PRN PRN Reason: Constipation Menthol [Biofreeze] 1 applic TOPICAL Q6H PRN PRN Reason: LEGS AND RIGHT ARM PAIN diphenhydrAMINE [Benadryl] 50 mg PO Q6H PRN PRN Reason: Itching Acetaminophen Tab [Tylenol] 650 mg PO Q4H PRN PRN Reason: Fever And/ Or Pain Benzocaine Gum 20% 1 applic DENTAL TID PRN PRN Reason: UPPER FRONT GUM PAIN OLANZapine [ZyPREXA] 5 mg PO HS ALPRAZolam [Xanax] 0.5 mg PO TID Cholecalciferol (Vitamin D3) [Vitamin D3 (3000 Iu)] 75 mcg PO DAILY rOPINIRole HCL [Requip] 1 mg PO HS Dextromethorphan HBr/Quinidine [Nuedexta 20-10 mg Capsule] 1 cap PO DAILY Mag Hydrox/Aluminum Hyd/Simeth [Mylanta Maximum Strength Liq] 10 ml PO Q4H PRN PRN Reason: Gi Upset HYDROcodone/APAP 10-325MG [[place] 10-325] 1 tab PO Q4H Melatonin 5 mg PO HS Loperamide [Imodium] 2 mg PO DIRECTED PRN PRN Reason: Loose Stool Ibuprofen [Motrin] 400 mg PO DAILY PRN PRN Reason: Breakthrough Pain DULoxetine HCL [Cymbalta] 60 mg PO DAILY Cranberry 425mg Capsule 425 mg PO BID Loratadine [Claritin] 10 mg PO DAILY Menthol [Biofreeze] 1 applic TOPICAL BID PRN PRN Reason: BELOW KNEE LEG PAIN Discharge Medication List Sodium Chloride [Saline Nasal Mist] 2 spray EA NOSTRIL Q8H PRN 12/03/24 [History] Acetaminophen Suppository [Tylenol Suppository] 650 mg RECTAL Q4HR PRN suppositor 12/12/24 [Rx] Atropine Ophth Soln 1% 5Ml [Isopto Atropine 1% 5Ml] 2 drops SUBLINGUAL Q4HR PRN ml 12/12/24 [Rx] LORazepam [Ativan] 0.5 mg PO Q6H PRN #30 tab 12/12/24 [Rx] MORPHINE ORAL LETICIA CONC 20mg/mL [Roxanol Oral Soln Conc 20Mg/ml] 5 mg PO Q4H PRN #30 ml 12/12/24 [Rx] Scopolamine 1 mg/72 Hr Patch [TransDerm Scop] 1 patch TRANSDERM Q72H PRN patch 12/12/24 [Rx] cloNIDine 0.1 MG/24HR PATCH [Catapres-TTS] 1 patch TRANSDERM Q7D patch 12/12/24 [Rx] Follow up Appointment(s)/Referral(s): Jonathan Fulton DO [Primary Care Provider] - 1-2 days Discharge Disposition: TRANSFER TO SNF/ECF
== END 2024-12-12 14:30 | disposition hospice, inpatient (51) | DRG 871 ==
LOC: EC 09:44 → 2SICU 13:01 → 5NMEDONC 12-04 09:09 → 1SOBS 12-04 11:08 → 3SCARD 12-05 00:52
PROVIDERS: ADMIT Hospitalist; ATTEND Hospitalist
PROC: 3E033XZ Introduction of Vasopressor into Peripheral Vein, Percutaneous Approach (ICD-10-PCS; 2024-12-03)
PROC: 009U3ZX Drainage of Spinal Canal, Percutaneous Approach, Diagnostic (ICD-10-PCS; principal; 2024-12-05)
PROC: 0D9670Z Drainage of Stomach with Drainage Device, Via Natural or Artificial Opening (ICD-10-PCS; 2024-12-08)
DX: A41.9 Sepsis, unspecified organism (principal); G93.41 Metabolic encephalopathy; N17.0 Acute kidney failure with tubular necrosis; R65.21 Severe sepsis with septic shock; K92.0 Hematemesis; E87.0 Hyperosmolality and hypernatremia; E87.21 Acute metabolic acidosis; E11.65 Type 2 diabetes mellitus with hyperglycemia; G40.909 Epilepsy, unspecified, not intractable, without status epilepticus; E03.9 Hypothyroidism, unspecified; I11.9 Hypertensive heart disease without heart failure; F32.A Depression, unspecified; E87.4 Mixed disorder of acid-base balance; N39.0 Urinary tract infection, site not specified; K56.41 Fecal impaction; Z79.4 Long term (current) use of insulin; Z66 Do not resuscitate; Z51.5 Encounter for palliative care; D72.823 Leukemoid reaction; E78.5 Hyperlipidemia, unspecified; M43.6 Torticollis; H55.00 Unspecified nystagmus; K21.9 Gastro-esophageal reflux disease without esophagitis; E87.6 Hypokalemia; N20.0 Calculus of kidney; E86.0 Dehydration; R00.1 Bradycardia, unspecified; G25.0 Essential tremor; R19.7 Diarrhea, unspecified; N39.498 Other specified urinary incontinence; H54.8 Legal blindness, as defined in USA; Z79.82 Long term (current) use of aspirin; Z79.890 Hormone replacement therapy; Z79.1 Long term (current) use of non-steroidal anti-inflammatories (NSAID); Z79.84 Long term (current) use of oral hypoglycemic drugs; Z79.899 Other long term (current) drug therapy; Z86.19 Personal history of other infectious and parasitic diseases
CPT/HCPCS: 36415; 36600; 70450; 70553; 71045; 74176; 80048; 80053; 80320; 81001; 82140; 82550; 82607; 82746; 82805; 82945; 83036; 83605; 83735; 83873; 84145; 84157; 84439; 84443; 84484; 85025; 85610; 85730; 87040; 87070; 87086; 87205; 87324; 87493; 89050; 93005; 95816; 96361; 96365; 96366; 96367; 96368; 96375; 99291